=== PATIENT | female | born 1960 | race Caucasian/White ===

== ENCOUNTER 2016-09-02 15:23 | Outpatient (CLI) | payer MEDICAID | END 2016-09-02 15:24 | disposition home or self-care (01) | DX: M17.11 Unilateral primary osteoarthritis, right knee (principal); M25.561 Pain in right knee ==

== ENCOUNTER 2016-10-26 08:00 | Outpatient (CLI) | payer MEDICAID | END 2016-10-26 23:59 | DX: Z01.818 Encounter for other preprocedural examination (principal) ==

== ENCOUNTER 2016-10-26 08:00 | Outpatient (CLI) | payer MEDICAID | END 2016-10-26 23:59 | disposition home or self-care (01) | DX: Z01.818 Encounter for other preprocedural examination (principal) ==

== ENCOUNTER 2016-12-05 06:09 | Inpatient (IN) | payer MEDICAID ==
[2016-12-05] MEDS ORDERED: ceFAZolin 2 GM/50 ML 50 ML IV ONE (06:30)
[2016-12-05] MEDS ORDERED: LACTATED RINGERS 1,000 ML IV ONE ×3 (06:43→11:11)
[2016-12-05 06:58] LABS: HCG UR QUAL NEGATIVE
[2016-12-05] MEDS ORDERED: MORPHINE PF 5 MG/10 ML AMP SUBQ ONE (09:40)
[2016-12-05] MEDS ORDERED: KETOROLAC 15 MG/ML VIAL IVP ONE (09:48)
[2016-12-05] MEDS ORDERED: EPINEPHrine 1 MG/ML AMP SUBQ ONE (09:48)
[2016-12-05] MEDS ORDERED: BUPIVACAINE 0.5% PF 30 ML VIAL SUBQ ONE ×3 (09:49)
[2016-12-05] MEDS ORDERED: ROPIVACAINE 0.2% PF 20 ML AMPULE SUBQ ONE (09:49)
[2016-12-05] MEDS ORDERED: fentaNYL 100 MCG/2 ML VIAL IVP ONE (09:55)
[2016-12-05] MEDS ORDERED: MORPHINE PF 5 MG/10 ML AMP EP ONE (09:55)
[2016-12-05] MEDS ORDERED: KETAMINE 500 MG/10 ML VIAL IVP ONE (09:55)
[2016-12-05] MEDS ORDERED: PROPOFOL 200 MG/20 ML VIAL IVP ONE (09:55)
[2016-12-05] MEDS ORDERED: HYDROmorphone 1 MG/ML SYRINGE IVP ONE (09:55)
[2016-12-05] MEDS ORDERED: MIDAZOLAM 2 MG/2 ML VIAL IVP ONE (09:55)
[2016-12-05] MEDS ORDERED: ROPIVACAINE 0.5% PF 20 ML AMPULE EP ONE (09:55)
[2016-12-05] MEDS ORDERED: ACETAMINOPHEN 1,000 MG/100 ML VIAL IV ONE (09:55)
[2016-12-05] MEDS ORDERED: ONDANSETRON 4 MG/2 ML VIAL IVP ONE (09:55)
[2016-12-05] MEDS ORDERED: SUCCINYLCHOLINE 200 MG/10 ML VIAL IVP ONE (09:55)
[2016-12-05] MEDS ORDERED: DEXAMETHASONE 4 MG/ML VIAL IVP ONE (09:55)
[2016-12-05] MEDS ORDERED: LIDOCAINE-MPF 2% 5 ML VIAL IM ONE (09:55)
[2016-12-05] MEDS ORDERED: KETOROLAC 30 MG/ML VIAL IVP ONE (09:55)
[2016-12-05] MEDS ORDERED: TRANEXAMIC ACID 1,000 MG/10 ML VIAL IV ONE (09:55)
[2016-12-05] MEDS: HYDROmorphone 1 MG/ML SYRINGE ONE ×3 (11:38→11:59)
--- NOTE | 2016-12-05 11:41 | OPERATIVE REPORT ---
Operative Report - General Admit Date: 12/05/16 Procedure Date: 12/05/16 Planned Procedure: Right Total Knee Arthroplasty Pre-Op Diagnosis: Right Knee Primary Osteoarthritis Post Op Diagnosis: Same. - Procedure Note Primary Surgeon: Ramesh Ware MD Anesthesia Provider: MD Isabelle Anesthesia Technique: General ET tube, Local Pathology: Same. Estimated Blood Loss (in cc): 50 Complications: None. - Other Other Information/Narrative: 1. Tourniquet: Right Thigh @ 275 mm Kg x 120 min. without complications. 2. Fluids: 2000 mL LR. 3. Implants: Claudette Persona PS Femoral Component, R Sz 7. Persona Natural Tibia Cemented 5o Right Sz F Vivacit-E Highly Crosslinked Polyethylene PS Tibial Insert, Right 12 mm. Vivacit-E Highly Crosslinked Polyethylene Patella cemented 35 x 9 mm. 4. Disposition: PACU >> MedSur 5. Condition: Stable.
[2016-12-05] MEDS: MEPERIDINE 50 MG/ML SYRINGE ONE ×2 (11:43→11:50)
[2016-12-05] MEDS ORDERED: ACETAMINOPHEN 1,000 MG/100 ML 100 ML IV PRN (11:48)
[2016-12-05] MEDS: fentaNYL 100 MCG/2 ML VIAL ONE ×4 (12:10→12:34)
--- NOTE | 2016-12-05 12:42 | XRAY Report ---
TWO VIEW RIGHT KNEE: 12/05/2016 CLINICAL INDICATION: Postop. FINDINGS: Frontal and lateral views of the right knee demonstrate changes of right knee replacement. There is no evidence of acute fracture. Subcutaneous gas is present. IMPRESSION: POSTOPERATIVE CHANGES OF RIGHT KNEE REPLACEMENT. JOB #: [id number] EXT JOB #:[id number]
[2016-12-05] MEDS: HYDROmorphone PCA 10 MG IV PRN ×2 (13:37→21:52)
[2016-12-05] MEDS: KETOROLAC 30 MG/ML VIAL IVP PRN ×2 (13:46→19:47)
[2016-12-05] MEDS: oxyCOD/ACETAMIN 5 MG/325 MG TABLET PO PRN ×3 (13:58→21:46)
[2016-12-05] MEDS: D5.45NS W/20 MEQ KCL 1,000 ML IV SCH (14:13)
[2016-12-05] MEDS: SODIUM CHLORIDE FLUSH 0.9% 10 ML SYRINGE IVP SCH ×2 (16:31→20:55)
[2016-12-05] MEDS: ceFAZolin 2 GM/50 ML 50 ML IV SCH (16:34)
[2016-12-05] MEDS ORDERED: SENNA 8.6 MG TABLET PO PRN (18:57)
[2016-12-05] MEDS: TOPIRAMATE 100 MG TABLET PO SCH (21:45)
[2016-12-06] MEDS: ACETAMINOPHEN 325 MG TABLET PO PRN
[2016-12-06] MEDS: D5.45NS W/20 MEQ KCL 1,000 ML IV SCH ×2 (00:04→11:24)
[2016-12-06] MEDS: ceFAZolin 2 GM/50 ML 50 ML IV SCH (00:06)
[2016-12-06] MEDS: KETOROLAC 30 MG/ML VIAL IVP PRN ×4 (02:46→21:01)
[2016-12-06] MEDS: SODIUM CHLORIDE FLUSH 0.9% 10 ML SYRINGE IVP SCH ×3 (06:55→21:02)
[2016-12-06] MEDS: ACETAMINOPHEN 1,000 MG/100 ML 100 ML IV SCH ×3 (07:47→20:02)
[2016-12-06] MEDS ORDERED: CALCIUM CARBONATE PO SCH (09:00)
[2016-12-06] MEDS ORDERED: FOLIC ACID PO SCH (09:00)
[2016-12-06] MEDS ORDERED: VITAMIN D3 PO SCH ×2 (09:00)
[2016-12-06] MEDS ORDERED: SENNOSIDES PO SCH (09:00)
[2016-12-06] MEDS ORDERED: DOCUSATE SODIUM PO SCH (09:00)
[2016-12-06] MEDS: HYDROmorphone PCA 10 MG IV PRN (09:48)
[2016-12-06] MEDS: DOCUSATE SODIUM 250 MG CAPSULE PO SCH (10:01)
[2016-12-06] MEDS: TOPIRAMATE 100 MG TABLET PO SCH ×2 (10:02→21:01)
[2016-12-06] MEDS: SENNA 8.6 MG TABLET PO SCH (10:02)
[2016-12-06] MEDS: FOLIC ACID 1 MG TABLET PO SCH (10:02)
[2016-12-06] MEDS: CHOLECALCIFEROL 5,000 UNIT CAPSULE PO SCH (10:03)
[2016-12-06] MEDS: CALCIUM CARBONATE CHEW 500 MG TABLET PO SCH (10:03)
[2016-12-06] MEDS: ENOXAPARIN 40 MG/0.4 ML SYRINGE SUBQ SCH (10:04)
[2016-12-06] MEDS: traMADol 50 MG TABLET PO PRN (12:23)
[2016-12-06] MEDS: GABAPENTIN 100 MG CAPSULE PO SCH ×2 (13:00→21:01)
[2016-12-06] MEDS ORDERED: HYDROmorphone PCA 10 MG IV PRN (14:18)
[2016-12-06 16:21] LABS: BASOPHILS % (AUTO) 0.3 %; EOSINOPHILS # (AUTO) 0.1 10^3/uL (0.0-0.7); EOSINOPHILS % (AUTO) 0.9 %; HCT - HEMATOCRIT 28.2 % (37.0-47.0); HGB - HEMOGLOBIN 9.5 g/dL (12.0-16.0); LYMPHOCYTES # (AUTO) 2.6 10^3/uL (1.5-3.5); LYMPHOCYTES % (AUTO) 31.3 %; MEAN CORPUSCULAR HEMOGLOBIN 31.4 pg (27.0-31.0); MEAN CORPUSCULAR HGB CONC 33.8 g/dL (32.0-36.0); MEAN CORPUSCULAR VOLUME 93.1 fL (81.0-99.0); MONOCYTES # (AUTO) 0.9 10^3/uL (0.0-1.0); MONOCYTES % (AUTO) 10.7 %; NEUTROPHILS # (AUTO) 4.7 10^3/uL (1.5-6.6); NEUTROPHILS % (AUTO) 56.8 %; RED BLOOD COUNT 3.03 10^6/uL (4.20-5.40); RED CELL DISTRIBUTION WIDTH 13.1 % (12.0-15.0); UNCORRECTED WHITE BLOOD COUNT 8.3 x10^3/uL; WHITE BLOOD COUNT 8.3 x10^3/uL (4.8-10.8)
--- NOTE | 2016-12-06 16:25 | CONSULTATION NOTE ---
DATE OF CONSULTATION: 12/06/2016 00:00:00 REQUESTING PROVIDER: Dr. Andres Ware. REASON FOR CONSULTATION: Medical management and pain management status post right knee arthroplasty. HISTORY OF PRESENT ILLNESS: The patient is a 56-year-old female who was admitted to the [facility] service for a total right knee arthroplasty replacement with Dr. Andres Ware. The patient was evaluated at bedside. She had significant pain to the right knee, was on a ALUMINUM MOLDING MACHINE OPERATOR pump and was not bein g relieved for her pain at the time of assessment. The patient has a longstanding history with osteoa rthritis of multiple joints, hypothyroidism with goiter, back problems with bulging disks and neuropa thy to both upper and lower extremities. She normally takes oxycodone 3 times a day, 10 mg. She also takes topiramate for nerve pain. She has not taken any steroids at this time. The patient states that her pain at this time is a 10/10. She was given tramadol earlier, which did not relieve her pain. Eliana tovar also has tried gabapentin in the past and has not helped as well. The patient was placed back on he r normal dosage of oxycodone 10 mg 3 times a day. Along with her pain the patient is being managed fo r other symptoms including neurology with topiramate. She does not have medication for her thyroid. H owever, we will check a thyroid panel. The patient understands that she will be up and ambulatory wit h physical and occupational therapy within the next 24 hours and was requesting additional pain medic ation to help with ambulation. ALLERGIES: NO KNOWN DRUG ALLERGIES. PAST MEDICAL HISTORY: 1. Chronic neck and spine pain. 2. Hypothyroidism. 3. Osteoarthritis of multiple sites. 4. Peripheral neuropathy. 5. History of thyroid goiters. 6. History of cervical sprain. 7. Vitamin D deficiency. PAST SURGICAL HISTORY: Multiple surgeries for spine and back. Right knee surgery. PAST FAMILY HISTORY: The patient states that her father had spinal stenosis, Parkinson's, diabetes, t rigeminal neuralgia. Mother is relatively healthy, still alive. HOME MEDICATIONS: 1. Calcium carbonate. 2. Vitamin D. 3. Glucosamine. 4. Oxycodone 10 mg t.i.d. 5. Senna and Colace. 6. Topamax. PAST SOCIAL HISTORY: The patient does take multiple pain relieving narcotics. She does drink alcohol on occasion and does not use illicit street drugs. REVIEW OF SYSTEMS: Ten systems have been reviewed and negative, with exception as discussed in the HP I prior. She is negative for nausea, vomiting, constipation, diarrhea, headaches, chest pain or short ness of breath. She is positive for multiple sites of pain, specifically in the knee. She denies mary jane turia, dysuria. She admits to a neuropathy to both her feet and her hands. PHYSICAL EXAMINATION: CONSTITUTIONAL: The patient is alert, in no acute distress. EYES: Pupils are equal, round and react to light and accommodation. Conjunctivae and sclerae are allison cteric, not injected. ENT: Nares are patent. No nasal discharge. OROPHARYNX: No masses, exudates or lesions. Mucous membranes are moist. NECK: Supple. No thyromegaly. CHEST: Breath sounds are clear and equal bilaterally to auscultation and percussion, no retractions, nasal flaring, or increased work of breathing. CARDIOVASCULAR: S1, S2 noted. No gallops, murmurs or rubs. Normal PMI. No JVD. GASTROINTESTINAL: Abdomen is obese, soft, nontender. Bowel sounds are hypoactive. No guarding or rebo und. GENITOURINARY: No CVA tenderness. No mass palpated. No bladder distention. PSYCHIATRIC: Behavior is appropriate, anxious after surgery, oriented x3 with no suicidal ideation. HEMATOLOGIC: No active bleeding. The patient is hemodynamically stable. SKIN: Warm, dry, intact. Normal turgor. No evidence of rash, lesions, cellulitis, noted. Right Jovanni ba ndage around knee status post arthroscopic right knee. MUSCULOSKELETAL: EXTREMITIES: Full range of motion with upper extremities limited to right lower, sta tus post surgery, left with no difficulty. No edema noted and pulses are palpable on lower extremitie s. LYMPHATIC: No cervical, axillary, supraclavicular lymphadenopathy is noted. VITAL SIGNS: Temperature is 36.8, heart rate 57, blood pressure 110/60, respirations 18, pulse oximet ry 98% on room air. LABORATORY AND DIAGNOSTICS: I personally reviewed laboratory and diagnostic data in the medical recor ds. Urinalysis posted that is negative for , specific gravity is 1.02. No CBC and no CMP not ed at this time. ASSESSMENT: 1. Acute right knee pain with osteoarthritis of multiple sites secondary to status post total right k nee arthroplasty. 2. Obesity with body mass index greater than 30. 3. Chronic back pain with spinal stenosis. 4. Hypothyroid with goiter. 5. Peripheral neuropathy. 6. Chronic opiate usage. PLAN AND RECOMMENDATIONS: 1. Continue with ALUMINUM MOLDING MACHINE OPERATOR Dilaudid pump; however, will give back oxycodone home medication, the patient wi ll be difficult to manage pain hay since she does have tolerance for multiple pain medications. She has significant neuropathy. Recommend continuing topiramate. She also will need physical and occupati onal therapy assessment evaluation. Recommend also to provide NSAID, if not Toradol IV is a good laurent ce. 2. Continue to monitor mental status on both Dilaudid and oxycodone. 3. Also add oxygen specifically at night when she is sleeping. Will need to monitor continuous pulse oximetry at night. 4. Continue with daily labs and continue to monitor electrolytes and magnesium level. Time spent on patient education, planning and assessment was 45 minutes. Thank you for your kind referral. We will continue to follow with you. JOB #: [id number] EXT JOB #:[id number]
[2016-12-06] MEDS: oxyCODONE 5 MG TABLET PO PRN (16:43)
[2016-12-07] MEDS: diphenhydrAMINE INJ 50 MG/ML VIAL IVP PRN (00:22)
[2016-12-07] MEDS: D5.45NS W/20 MEQ KCL 1,000 ML IV SCH ×3 (00:34→14:40)
[2016-12-07] MEDS: ACETAMINOPHEN 1,000 MG/100 ML 100 ML IV SCH ×4 (00:47→19:32)
[2016-12-07] MEDS: HYDROmorphone PCA 10 MG IV PRN ×3 (00:49→18:31)
[2016-12-07] MEDS: ONDANSETRON 4 MG/2 ML VIAL IVP PRN (01:04)
[2016-12-07] MEDS: KETOROLAC 30 MG/ML VIAL IVP PRN ×3 (03:20→17:38)
[2016-12-07] MEDS: SODIUM CHLORIDE FLUSH 0.9% 10 ML SYRINGE IVP SCH ×3 (04:52→22:00)
[2016-12-07] MEDS: GABAPENTIN 100 MG CAPSULE PO SCH ×3 (05:37→21:59)
[2016-12-07 06:07] LABS: ALBUMIN/GLOBULIN RATIO 1.3 (1.0-2.2); BILIRUBIN,TOTAL 0.3 mg/dL (0.2-1.0); CALCIUM 8.3 mg/dL (8.5-10.3); CREATININE 0.7 mg/dL (0.4-1.0); POTASSIUM 3.8 mmol/L (3.5-5.0); TOTAL PROTEIN 4.8 g/dL (6.7-8.2)
[2016-12-07] MEDS: traMADol 50 MG TABLET PO PRN ×3 (08:03→17:38)
[2016-12-07] MEDS: oxyCODONE 5 MG TABLET PO PRN ×3 (08:03→22:03)
[2016-12-07] MEDS: ENOXAPARIN 40 MG/0.4 ML SYRINGE SUBQ SCH (09:45)
[2016-12-07] MEDS: CHOLECALCIFEROL 5,000 UNIT CAPSULE PO SCH (09:46)
[2016-12-07] MEDS: FOLIC ACID 1 MG TABLET PO SCH (09:46)
[2016-12-07] MEDS: TOPIRAMATE 100 MG TABLET PO SCH ×2 (09:46→21:59)
[2016-12-07] MEDS: CALCIUM CARBONATE CHEW 500 MG TABLET PO SCH (09:46)
[2016-12-07] MEDS: DOCUSATE SODIUM 250 MG CAPSULE PO SCH (09:47)
[2016-12-07] MEDS: SENNA 8.6 MG TABLET PO SCH (12:34)
--- NOTE | 2016-12-07 16:41 | PROVIDER PROGRESS NOTE ---
Assessment/Plan - Problem List (1) Status post total right knee replacement Assessment/Plan: Osteoarthritis with chronic pain leading to knee replacement surgery. PT is having increased pain with mobility. She had her knee in a brace for several months complicating her mobility issues. Plan: Continue to work with Physical therapy. Will add PRN fentanyl to see if we can work towards removing her from COMPUTER METEOROLOGIST. Her intermediate accountant use of opiods will make pain control more difficult (2) Obesity (BMI 30.0-34.9) Assessment/Plan: Encourage diet, exercise and wt loss. (3) Chronic pain Assessment/Plan: intermediate opiod use will make pain control difficult. She has been placed back on her home regimen in addition to her COMPUTER METEOROLOGIST. She is continuously pushing her COMPUTER METEOROLOGIST button. Will try to slubber frame changer to Fentanyl IV and see if we can control her pain this way and prevent over use with concern for hyperactive pain response (4) Peripheral neuropathy Assessment/Plan: Continue home medications (5) Postoperative anemia Assessment/Plan: 9.5/28.2 today. Pt is asymptomatic. will recheck in AM - Current Meds Current Meds: Current Medications Generic Name Dose Route Start Last Admin Trade Name Freq PRN Reason Stop Dose Admin Acetaminophen 650 - 975 mg 12/05/16 11:48 12/06/16 00:00 Tylenol PO 975 mg Q4HR PRN Administration PAIN Calcium Carbonate/Glycine 1,500 mg 12/06/16 09:00 12/07/16 09:46 Tums PO 1,500 mg DAILY DIOR Administration Cholecalciferol 5,000 unit 12/06/16 09:00 12/07/16 09:46 Vitamin D3 PO 5,000 unit DAILY DIOR Administration Diphenhydramine HCl 25 mg 12/06/16 16:01 12/07/16 00:22 Benadryl Inj IVP 25 mg Q6H PRN Administration Allergy Symptoms Docusate Sodium 250 - 500 mg 12/06/16 09:00 12/07/16 09:47 Colace 250mg Capsule PO 250 mg DAILY DIOR Administration Enoxaparin Sodium 40 mg 12/06/16 09:00 12/07/16 09:45 Lovenox SUBQ 40 mg DAILY DIOR Administration Folic Acid 1 mg 12/06/16 09:00 12/07/16 09:46 PO 1 mg DAILY DIOR Administration Gabapentin 100 mg 12/06/16 12:30 12/07/16 13:18 Neurontin PO 100 mg TID DIOR Administration Hydromorphone HCl 10 mg 12/07/16 00:14 12/07/16 07:43 Dilaudid Property Preservation Specialist (Use Property Preservation Specialist Order Set) IV 10 mg PRN PRN Administration PAIN Protocol Acetaminophen 100 mls @ 400 mls/hr 12/06/16 07:00 12/07/16 13:19 Ofirmev IV 400 mls/hr Q6H DIOR Administration Potassium Chloride/Dextrose/Sod Cl 1,000 mls @ 30 mls/hr 12/07/16 14:38 14:40 D5.45ns W/20 Meq Kcl IV 30 mls/hr .[id number] DIOR Administration Ketorolac Tromethamine 30 mg 12/05/16 11:53 12/07/16 09:45 Toradol Inj IVP 12/10/16 11:52 30 mg Q6HR PRN Administration PAIN Ondansetron HCl 4 mg 12/05/16 11:48 12/07/16 01:04 Zofran Inj IVP 4 mg Q6HR PRN Administration Nausea / Vomiting Oxycodone HCl 10 mg 12/06/16 15:36 12/07/16 13:17 Roxicodone PO 10 mg TID PRN Administration PAIN Senna 8.6 - 17.2 mg 12/06/16 09:00 12/07/16 12:34 Senokot PO Not Given DAILY DIOR Sodium Chloride 10 ml 12/05/16 14:00 12/07/16 14:36 Normal Saline Flush 0.9% IVP Not Given Q8HR DIOR Topiramate 100 mg 12/05/16 21:00 12/07/16 09:46 Topamax PO 100 mg BID DIOR Administration Tramadol HCl 50 mg 12/06/16 12:02 12/07/16 11:33 Ultram PO 50 mg Q4HR PRN Administration PAIN - Lab Result Lab results reviewed: Yes Fish Bone Diagrams: 12/06/16 16:10 12/07/16 05:19 - Diagnostic Imaging Results Diagnostic Imaging Results: positive: Prelim report reviewed - Additional Planning Condition/Complexity: Stable My Orders: My Active Orders 12/07/16 16:36 fentaNYL 25 mcg IVP Q2HR PRN Plan Discussed with:: Patient, Family Time Spent: 15-30 minutes Subjective - Subjective Patient Reports: Pain (Continues to have trouble controlling her pain. She inderstands her prior chronic use of opiods is making it more difficult.) Nursing Reports: Pain Objective Vital Signs: Vital Signs - 24 hr 12/06/16 12/06/16 12/06/16 18:00 19:30 22:00 Temperature 36.5 C Heart Rate [ 64 Brachial] Respiratory 16 18 16 Rate Blood Pressure 135/61 H [Right Brachial artery] O2 Saturation 99 12/06/16 12/07/16 12/07/16 23:45 00:53 04:22 Temperature 36.8 C 36.9 C Heart Rate [ 60 76 Brachial] Respiratory 18 18 16 Rate Blood Pressure 88/44 L 93/51 L [Right Brachial artery] O2 Saturation 96 96 12/07/16 12/07/16 12/07/16 06:00 08:51 10:00 Temperature 36.9 C Heart Rate [ 97 Brachial] Respiratory 17 18 18 Rate Blood Pressure 97/48 L [Right Brachial artery] O2 Saturation 100 12/07/16 14:00 Temperature 37.1 C Heart Rate [ 82 Brachial] Respiratory 19 Rate Blood Pressure 96/60 [Right Brachial artery] O2 Saturation 100 Oxygen O2 Source Room air I&O (Last 24 Hrs): Intake and Output Totals x24h 12/05/16 12/06/16 12/07/16 23:59 23:59 23:59 Intake Total 4437 4963 2246 Output Total 2700 2050 1800 Balance 1737 2913 446 General: Alert, Oriented x3 HEENT: Atraumatic, PERRLA, EOMI Neck: Supple, No JVD Neuro: Alert, CN 2-12 Grossly Intact Cardiovascular: Regular rate, Normal S1, Normal S2, No murmurs Respiratory: Chest non-tender, No respiratory distress Abdomen: Normal bowel sounds Extremities: No edema Skin: No rashes, No breakdown - Results Results: Laboratory Results WBC 8.3 x10^3/uL (4.8-10.8) 12/06/16 16:10 RBC 3.03 10^6/uL (4.20-5.40) L 12/06/16 16:10 Hgb 9.5 g/dL (12.0-16.0) L 12/06/16 16:10 Hct 28.2 % (37.0-47.0) L 12/06/16 16:10 MCV 93.1 fL (81.0-99.0) 12/06/16 16:10 MCH 31.4 pg (27.0-31.0) H 12/06/16 16:10 MCHC 33.8 g/dL (32.0-36.0) 12/06/16 16:10 RDW 13.1 % (12.0-15.0) 12/06/16 16:10 Plt Count 172 10^3/uL (130-450) 12/06/16 16:10 MPV 7.0 fL (7.9-10.8) L 12/06/16 16:10 Neut # 4.7 10^3/uL (1.5-6.6) 12/06/16 16:10 Lymph # 2.6 10^3/uL (1.5-3.5) 12/06/16 16:10 [place] # 0.9 10^3/uL (0.0-1.0) 12/06/16 16:10 Eos # 0.1 10^3/uL (0.0-0.7) 12/06/16 16:10 Baso # 0.0 10^3/uL (0.0-0.1) 12/06/16 16:10 Absolute Nucleated RBC 0.00 x10^3/uL 12/06/16 16:10 Nucleated RBCs 0.0 /100WBC 12/06/16 16:10 Sodium 139 mmol/L (135-145) 12/07/16 05:19 Potassium 3.8 mmol/L (3.5-5.0) 12/07/16 05:19 Chloride 110 mmol/L (101-111) 12/07/16 05:19 Carbon Dioxide 24 mmol/L (21-32) 12/07/16 05:19 Anion Gap 5.0 (6-13) L 12/07/16 05:19 BUN 18 mg/dL (6-20) 12/07/16 05:19 Creatinine 0.7 mg/dL (0.4-1.0) 12/07/16 05:19 Estimated GFR (MDRD) 87 (>89) L 12/07/16 05:19 Glucose 109 mg/dL (70-100) H 12/07/16 05:19 Calcium 8.3 mg/dL (8.5-10.3) L 12/07/16 05:19 Phosphorus 3.2 mg/dL (2.5-4.6) 12/06/16 16:10 Magnesium 1.8 mg/dL (1.7-2.8) 12/06/16 16:10 Total Bilirubin 0.3 mg/dL (0.2-1.0) 12/07/16 05:19 AST 12 IU/L (10-42) 12/07/16 05:19 ALT 12 IU/L (10-60) 12/07/16 05:19 Alkaline Phosphatase 48 IU/L (42-121) 12/07/16 05:19 Total Protein 4.8 g/dL (6.7-8.2) L 12/07/16 05:19 Albumin 2.7 g/dL (3.2-5.5) L 12/07/16 05:19 Globulin 2.0 g/dL (2.1-4.2) L 12/07/16 05:19 Albumin/Globulin Ratio 1.3 (1.0-2.2) 12/07/16 05:19 Vitamin B12 284 pg/mL (180-914) 12/06/16 16:10 Ur Specific [place] 1.025 (1.002-1.030) 12/05/16 06:30 Urine HCG, Qual NEGATIVE 12/05/16 06:30
[2016-12-07] MEDS: SODIUM CHLORIDE FLUSH 0.9% 10 ML SYRINGE IVP PRN (17:38)
[2016-12-08] MEDS: fentaNYL 100 MCG/2 ML VIAL IVP PRN ×6 (00:29→21:53)
[2016-12-08] MEDS: ACETAMINOPHEN 1,000 MG/100 ML 100 ML IV SCH ×4 (00:35→18:40)
[2016-12-08] MEDS ORDERED: ACETAMINOPHEN 325 MG TABLET PO STA (05:32)
[2016-12-08 05:44] LABS: HCT - HEMATOCRIT 25.2 % (37.0-47.0); HGB - HEMOGLOBIN 8.5 g/dL (12.0-16.0); MEAN CORPUSCULAR HGB CONC 33.9 g/dL (32.0-36.0); MEAN CORPUSCULAR VOLUME 94.6 fL (81.0-99.0); MEAN PLATELET VOLUME 7.1 fL (7.9-10.8); RED BLOOD COUNT 2.66 10^6/uL (4.20-5.40); RED CELL DISTRIBUTION WIDTH 13.3 % (12.0-15.0); WHITE BLOOD COUNT 10.8 x10^3/uL (4.8-10.8)
[2016-12-08] MEDS: SODIUM CHLORIDE FLUSH 0.9% 10 ML SYRINGE IVP SCH ×3 (06:07→21:53)
[2016-12-08] MEDS: GABAPENTIN 100 MG CAPSULE PO SCH ×3 (06:07→21:51)
[2016-12-08] MEDS: HYDROmorphone PCA 10 MG IV PRN (06:13)
[2016-12-08 06:33] LABS: BILIRUBIN,URINE NEGATIVE (NEGATIVE)
[2016-12-08 06:40] LABS: UR CULTURE IF IND NOT INDICATED; WBC,URINE 0-3 /HPF (0-5)
[2016-12-08] MEDS: KETOROLAC 30 MG/ML VIAL IVP PRN ×3 (07:09→21:52)
[2016-12-08] MEDS: TOPIRAMATE 100 MG TABLET PO SCH ×2 (08:50→21:51)
[2016-12-08] MEDS: CHOLECALCIFEROL 5,000 UNIT CAPSULE PO SCH (08:50)
[2016-12-08] MEDS: SENNA 8.6 MG TABLET PO SCH (08:50)
[2016-12-08] MEDS: oxyCODONE 5 MG TABLET PO PRN ×2 (08:51→18:05)
[2016-12-08] MEDS: DOCUSATE SODIUM 250 MG CAPSULE PO SCH (08:51)
[2016-12-08] MEDS: CALCIUM CARBONATE CHEW 500 MG TABLET PO SCH (08:52)
[2016-12-08] MEDS: ENOXAPARIN 40 MG/0.4 ML SYRINGE SUBQ SCH (08:54)
[2016-12-08] MEDS: FOLIC ACID 1 MG TABLET PO SCH (09:07)
[2016-12-08] MEDS: cefTRIAXone 2 GM in SODIUM CHLORIDE 0.9% MINIBAG 100 ML IV SCH (11:47)
--- NOTE | 2016-12-08 12:05 | XRAY Report ---
TWO VIEW CHEST: 12/08/2016 CLINICAL INDICATION: Fever. FINDINGS: Frontal and lateral views of the chest demonstrate a normal cardiac silhouette. A moderate hiatal hernia is present. The lungs are clear. No effusion or pneumothorax is present. IMPRESSION: MODERATE HIATAL HERNIA. NO EVIDENCE OF ACUTE CARDIOPULMONARY DISEASE. JOB #: [id number] EXT JOB #:[id number]
[2016-12-08] MEDS: traMADol 50 MG TABLET PO PRN ×2 (13:31→18:05)
[2016-12-08] MEDS: D5.45NS W/20 MEQ KCL 1,000 ML IV SCH (13:34)
--- NOTE | 2016-12-08 14:37 | PROVIDER PROGRESS NOTE ---
Assessment/Plan - Problem List (1) Status post total right knee replacement Assessment/Plan: Increased pain of right knee and leg. Febrile with chills and rigors last night. Blood cultures obtained. Chest xray was unremarkable with no acute cardiopulmonary findings. PT has been afebrile throughout the day. Plan: Started on Rocephin today. US ordered by surgery. Will monitor and discuss with Dr Ware from surgery if anything changes. He did not feel needles aspiration was indicated at this time. (2) Obesity (BMI 30.0-34.9) Assessment/Plan: PT will benefit from wt loss. This will help her chronic pain, osteoarthritis as well as risk factor reduction for CAD, CVA and DM (3) Chronic pain Assessment/Plan: Continued complaints of pain. Difficult to assess pain response tonew changes. MACHINE RIGGER Dilaudid discontinued today. Will continue to monitor on current medications. Physical therapy to work with her tomorrow as we are currently assessing RLE for DVT and effusion (5) Postoperative anemia Assessment/Plan: H/H have declined further today. She does not require transfusion at this time. Will Continue to monitor labs and transfuse if significant drop from baseline or if she is symptomatic . - Current Meds Current Meds: Current Medications Generic Name Dose Route Start Last Admin Trade Name Freq PRN Reason Stop Dose Admin Acetaminophen 650 - 975 mg 12/05/16 11:48 12/06/16 00:00 Tylenol PO 975 mg Q4HR PRN Administration PAIN Calcium Carbonate/Glycine 1,500 mg 12/06/16 09:00 12/08/16 08:52 Tums PO 1,500 mg DAILY DIOR Administration Cholecalciferol 5,000 unit 12/06/16 09:00 12/08/16 08:50 Vitamin D3 PO 5,000 unit DAILY DIOR Administration Diphenhydramine HCl 25 mg 12/06/16 16:01 12/07/16 00:22 Benadryl Inj IVP 25 mg Q6H PRN Administration Allergy Symptoms Docusate Sodium 250 - 500 mg 12/06/16 09:00 12/08/16 08:51 Colace 250mg Capsule PO 250 mg DAILY DIOR Administration Enoxaparin Sodium 40 mg 12/06/16 09:00 12/08/16 08:54 Lovenox SUBQ 40 mg DAILY DIOR Administration Fentanyl 25 mcg 12/07/16 16:36 12/08/16 13:43 Fentanyl IVP 25 mcg Q2HR PRN Administration PAIN Folic Acid 1 mg 12/06/16 09:00 12/08/16 09:07 PO 1 mg DAILY DIOR Administration Gabapentin 100 mg 12/06/16 12:30 12/08/16 13:31 Neurontin PO 100 mg TID DIOR Administration Acetaminophen 100 mls @ 400 mls/hr 12/06/16 07:00 12/08/16 13:31 Ofirmev IV 400 mls/hr Q6H DIOR Administration Potassium Chloride/Dextrose/Sod Cl 1,000 mls @ 30 mls/hr 12/07/16 14:38 13:34 D5.45ns W/20 Meq Kcl IV 30 mls/hr .[id number] DIOR Administration Ceftriaxone Sodium 2 gm/ 100 mls @ 200 mls/hr 12/08/16 12:00 12/08/16 11:47 Sodium Chloride IV 200 mls/hr DAILY DIOR Administration Ketorolac Tromethamine 30 mg 12/05/16 11:53 12/08/16 13:26 Toradol Inj IVP 12/10/16 11:52 30 mg Q6HR PRN Administration PAIN Ondansetron HCl 4 mg 12/05/16 11:48 12/07/16 01:04 Zofran Inj IVP 4 mg Q6HR PRN Administration Nausea / Vomiting Oxycodone HCl 10 mg 12/06/16 15:36 12/08/16 08:51 Roxicodone PO 10 mg TID PRN Administration PAIN Senna 8.6 - 17.2 mg 12/06/16 09:00 12/08/16 08:50 Senokot PO 8.6 mg DAILY DIOR Administration Sodium Chloride 10 ml 12/05/16 11:48 12/07/16 17:38 Normal Saline Flush 0.9% IVP 10 ml PRN PRN Administration NEEDED PER PROVIDER ORDERS Sodium Chloride 10 ml 12/05/16 14:00 12/08/16 13:32 Normal Saline Flush 0.9% IVP 10 ml Q8HR DIOR Administration Topiramate 100 mg 12/05/16 21:00 12/08/16 08:50 Topamax PO 100 mg BID DIOR Administration Tramadol HCl 50 mg 12/06/16 12:02 12/08/16 13:31 Ultram PO 50 mg Q4HR PRN Administration PAIN - Lab Result Lab results reviewed: Yes Fish Bone Diagrams: 12/08/16 05:09 12/07/16 05:19 - Diagnostic Imaging Results Diagnostic Imaging Results: positive: Final report reviewed - Additional Planning Condition/Complexity: Stable My Orders: My Active Orders 12/07/16 16:36 fentaNYL 25 mcg IVP Q2HR PRN 12/08/16 12:00 cefTRIAXone [Rocephin] 2 gm Sodium Chloride 0.9% Minibag [Normal Saline 0.9% Minibag] 100 ml IV DAILY 12/09/16 05:00 BMP - BASIC METABOLIC PANEL [CHEM] DAILYLAB CBC W/O DIFF (HEMOGRAM) [HEME] DAILYLAB Consult/Specialty: Surgery Plan Discussed with:: Patient Time Spent: 15-30 minutes Subjective - Subjective Patient Reports: Fever (Febrile over night with chills and rigors. Improved with APAP), Pain (PT complain of increase pain in leg especially the knee.) Nursing Reports: Pain Objective Vital Signs: Vital Signs - 24 hr 12/07/16 12/07/16 12/07/16 18:00 21:54 22:00 Temperature 37.3 C 37.1 C Heart Rate [ 80 72 Brachial] Respiratory 16 18 17 Rate Blood Pressure 118/62 108/49 L [Right Brachial artery] O2 Saturation 95 97 12/08/16 12/08/16 12/08/16 00:20 01:00 04:23 Temperature 37.3 C Heart Rate [ 90 Brachial] Respiratory 16 16 16 Rate Blood Pressure 121/65 [Right Brachial artery] O2 Saturation 99 12/08/16 12/08/16 12/08/16 05:10 05:23 08:18 Temperature 38.2 C H 37.8 C H 36.8 C Heart Rate [ 102 H 90 Brachial] Respiratory 20 18 Rate Blood Pressure 126/42 L 92/46 L [Right Brachial artery] O2 Saturation 100 96 12/08/16 12/08/16 10:00 12:42 Temperature 36.9 C Heart Rate [ 87 Brachial] Respiratory 16 16 Rate Blood Pressure 107/60 [Right Brachial artery] O2 Saturation 97 Oxygen O2 Source Room air I&O (Last 24 Hrs): Intake and Output Totals x24h 12/06/16 12/07/16 12/08/16 23:59 23:59 23:59 Intake Total 4963 3099 1051 Output Total 0973 7900 8628 Balance 2913 945 -1320 General: Alert, Oriented x3 HEENT: PERRLA, EOMI Neck: No JVD Neuro: Alert, CN 2-12 Grossly Intact Cardiovascular: Regular rate, No murmurs Respiratory: Chest non-tender, No respiratory distress, Breath sounds nml Abdomen: Normal bowel sounds Extremities: Normal pulses, Other (swelling and pain to palpation of RLE. Incision C/D/I. No errythema of RLE.) Skin: No rashes, No breakdown, No significant lesion - Results Results: Laboratory Results WBC 10.8 x10^3/uL (4.8-10.8) 12/08/16 05:09 RBC 2.66 10^6/uL (4.20-5.40) L 12/08/16 05:09 Hgb 8.5 g/dL (12.0-16.0) L 12/08/16 05:09 Hct 25.2 % (37.0-47.0) L 12/08/16 05:09 MCV 94.6 fL (81.0-99.0) 12/08/16 05:09 MCH 32.0 pg (27.0-31.0) H 12/08/16 05:09 MCHC 33.9 g/dL (32.0-36.0) 12/08/16 05:09 RDW 13.3 % (12.0-15.0) 12/08/16 05:09 Plt Count 172 10^3/uL (130-450) 12/08/16 05:09 MPV 7.1 fL (7.9-10.8) L 12/08/16 05:09 Neut # 4.7 10^3/uL (1.5-6.6) 12/06/16 16:10 Lymph # 2.6 10^3/uL (1.5-3.5) 12/06/16 16:10 [place] # 0.9 10^3/uL (0.0-1.0) 12/06/16 16:10 Eos # 0.1 10^3/uL (0.0-0.7) 12/06/16 16:10 Baso # 0.0 10^3/uL (0.0-0.1) 12/06/16 16:10 Absolute Nucleated RBC 0.00 x10^3/uL 12/06/16 16:10 Nucleated RBCs 0.0 /100WBC 12/06/16 16:10 Sodium 139 mmol/L (135-145) 12/07/16 05:19 Potassium 3.8 mmol/L (3.5-5.0) 12/07/16 05:19 Chloride 110 mmol/L (101-111) 12/07/16 05:19 Carbon Dioxide 24 mmol/L (21-32) 12/07/16 05:19 Anion Gap 5.0 (6-13) L 12/07/16 05:19 BUN 18 mg/dL (6-20) 12/07/16 05:19 Creatinine 0.7 mg/dL (0.4-1.0) 12/07/16 05:19 Estimated GFR (MDRD) 87 (>89) L 12/07/16 05:19 Glucose 109 mg/dL (70-100) H 12/07/16 05:19 Calcium 8.3 mg/dL (8.5-10.3) L 12/07/16 05:19 Phosphorus 3.2 mg/dL (2.5-4.6) 12/06/16 16:10 Magnesium 1.8 mg/dL (1.7-2.8) 12/06/16 16:10 Total Bilirubin 0.3 mg/dL (0.2-1.0) 12/07/16 05:19 AST 12 IU/L (10-42) 12/07/16 05:19 ALT 12 IU/L (10-60) 12/07/16 05:19 Alkaline Phosphatase 48 IU/L (42-121) 12/07/16 05:19 Total Protein 4.8 g/dL (6.7-8.2) L 12/07/16 05:19 Albumin 2.7 g/dL (3.2-5.5) L 12/07/16 05:19 Globulin 2.0 g/dL (2.1-4.2) L 12/07/16 05:19 Albumin/Globulin Ratio 1.3 (1.0-2.2) 12/07/16 05:19 Vitamin B12 284 pg/mL (180-914) 12/06/16 16:10 Urine Color YELLOW 12/08/16 05:50 Urine Clarity CLEAR (CLEAR) 12/08/16 05:50 Urine pH 7.0 PH (5.0-7.5) 12/08/16 05:50 Ur Specific [place] 1.010 (1.002-1.030) 12/08/16 05:50 Urine Protein NEGATIVE mg/dL (NEGATIVE) 12/08/16 05:50 Urine Glucose (UA) NEGATIVE mg/dL (NEGATIVE) 12/08/16 05:50 Urine Ketones NEGATIVE mg/dL (NEGATIVE) 12/08/16 05:50 Urine Occult Blood NEGATIVE (NEGATIVE) 12/08/16 05:50 Urine Nitrite NEGATIVE (NEGATIVE) 12/08/16 05:50 Urine Bilirubin NEGATIVE (NEGATIVE) 12/08/16 05:50 Urine Urobilinogen 0.2 (NORMAL) E.U./dL (NORMAL) 12/08/16 05:50 Ur Leukocyte Esterase NEGATIVE (NEGATIVE) 12/08/16 05:50 Urine RBC 0-5 /HPF (0-5) 12/08/16 05:50 Urine WBC 0-3 /HPF (0-5) 12/08/16 05:50 Ur Squamous Epith Cells MOD Squamous (<= Few) H 12/08/16 05:50 Urine Bacteria Few /HPF (None Seen) 12/08/16 05:50 Urine Culture Comments NOT INDICATED 12/08/16 05:50 Urine HCG, Qual NEGATIVE 12/05/16 06:30
--- NOTE | 2016-12-08 14:58 | Ultrasound Report ---
RIGHT LEG VENOUS DUPLEX: 12/08/2016 CLINICAL INDICATION: Calf pain after knee replacement. TECHNIQUE: Real-time sonographic vascular imaging was performed by the correspondence section supervisor through the right lower extremity utilizing both color flow and Doppler spectral analysis. Multiple customer service representative teacher sta tic images were saved for review. FINDINGS: A right lower extremity venous sonogram is performed revealing the common femoral, superfic ial femoral, profunda femoris, and popliteal veins to be adequately visualized without intraluminal d efects. There is normal venous compression, augmentation, phasicity, and spontaneity of venous flow. In the calf, the visualized more cephalad portions of posterior tibial and peroneal veins are grossl y compressible, without filling defects. IMPRESSION: NO EVIDENCE OF DEEP VENOUS THROMBOSIS. JOB #: [id number] EXT JOB #:[id number]
[2016-12-08] MEDS: SODIUM CHLORIDE FLUSH 0.9% 10 ML SYRINGE IVP PRN ×2 (18:05→21:53)
[2016-12-09] MEDS: ACETAMINOPHEN 1,000 MG/100 ML 100 ML IV SCH ×2 (00:51→07:51)
[2016-12-09] MEDS: oxyCODONE 5 MG TABLET PO PRN ×3 (00:51→12:50)
[2016-12-09] MEDS: KETOROLAC 30 MG/ML VIAL IVP PRN ×4 (00:51→19:07)
[2016-12-09 06:08] LABS: HCT - HEMATOCRIT 21.6 % (37.0-47.0); HGB - HEMOGLOBIN 7.1 g/dL (12.0-16.0); MEAN CORPUSCULAR HEMOGLOBIN 31.2 pg (27.0-31.0); MEAN CORPUSCULAR VOLUME 94.8 fL (81.0-99.0); MEAN PLATELET VOLUME 7.3 fL (7.9-10.8); RED BLOOD COUNT 2.28 10^6/uL (4.20-5.40); RED CELL DISTRIBUTION WIDTH 13.3 % (12.0-15.0); WHITE BLOOD COUNT 7.6 x10^3/uL (4.8-10.8)
[2016-12-09] MEDS: SODIUM CHLORIDE FLUSH 0.9% 10 ML SYRINGE IVP SCH ×3 (06:11→20:51)
[2016-12-09 06:16] LABS: CALCIUM 8.4 mg/dL (8.5-10.3); CREATININE 0.7 mg/dL (0.4-1.0); POTASSIUM 4.3 mmol/L (3.5-5.0)
[2016-12-09] MEDS: PROCHLORPERAZINE 10 MG/2 ML VIAL IVP PRN ×2 (07:50→19:07)
[2016-12-09] MEDS: GABAPENTIN 100 MG CAPSULE PO SCH ×3 (07:51→20:53)
[2016-12-09] MEDS ORDERED: FUROSEMIDE 20 MG/2 ML VIAL IVP PRN (08:59)
--- NOTE | 2016-12-09 09:08 | PROVIDER PROGRESS NOTE ---
Assessment/Plan - Problem List (1) Status post total right knee replacement Assessment/Plan: Pain in right knee improved today. Continues to complain of chills but is afebrile. Blood cultures negative to date. Vascular US negative for DVT. H/H has declined further. Plan: Continue current medications. Transfuse PRBC today. Work with physical therapy. Anticipate discharge 1-2 days. (2) Obesity (BMI 30.0-34.9) Assessment/Plan: PT will benefit from wt loss. This will help her chronic pain, osteoarthritis as well as risk factor reduction for CAD, CVA and DM (3) Chronic pain Assessment/Plan: No changes in chronic pain complaints. Knee feels better today. Will monitor and adjust medications to find lowest dosing to control her pain and allow mobilization. (4) Postoperative anemia Assessment/Plan: 7.1.6 today. Transfuse 2 units PRBC today. PARQ with patient completed - Current Meds Current Meds: Current Medications Generic Name Dose Route Start Last Admin Trade Name Freq PRN Reason Stop Dose Admin Acetaminophen 650 - 975 mg 12/05/16 11:48 12/06/16 00:00 Tylenol PO 975 mg Q4HR PRN Administration PAIN Calcium Carbonate/Glycine 1,500 mg 12/06/16 09:00 12/08/16 08:52 Tums PO 1,500 mg DAILY DIOR Administration Cholecalciferol 5,000 unit 12/06/16 09:00 12/08/16 08:50 Vitamin D3 PO 5,000 unit DAILY DIOR Administration Diphenhydramine HCl 25 mg 12/06/16 16:01 12/07/16 00:22 Benadryl Inj IVP 25 mg Q6H PRN Administration Allergy Symptoms Docusate Sodium 250 - 500 mg 12/06/16 09:00 12/08/16 08:51 Colace 250mg Capsule PO 250 mg DAILY DIOR Administration Enoxaparin Sodium 40 mg 12/06/16 09:00 12/08/16 08:54 Lovenox SUBQ 40 mg DAILY DIOR Administration Fentanyl 25 mcg 12/07/16 16:36 12/08/16 21:53 Fentanyl IVP 25 mcg Q2HR PRN Administration PAIN Folic Acid 1 mg 12/06/16 09:00 12/08/16 09:07 PO 1 mg DAILY DIOR Administration Gabapentin 100 mg 12/06/16 12:30 12/09/16 07:51 Neurontin PO 100 mg TID DIOR Administration Acetaminophen 100 mls @ 400 mls/hr 12/06/16 07:00 12/09/16 07:51 Ofirmev IV 400 mls/hr Q6H DIOR Administration Potassium Chloride/Dextrose/Sod Cl 1,000 mls @ 30 mls/hr 12/07/16 14:38 13:34 D5.45ns W/20 Meq Kcl IV 30 mls/hr .[id number] DIOR Administration Ceftriaxone Sodium 2 gm/ 100 mls @ 200 mls/hr 12/08/16 12:00 12/08/16 11:47 Sodium Chloride IV 200 mls/hr DAILY DIOR Administration Ketorolac Tromethamine 30 mg 12/05/16 11:53 12/09/16 07:51 Toradol Inj IVP 12/10/16 11:52 30 mg Q6HR PRN Administration PAIN Ondansetron HCl 4 mg 12/05/16 11:48 12/07/16 01:04 Zofran Inj IVP 4 mg Q6HR PRN Administration Nausea / Vomiting Oxycodone HCl 10 mg 12/06/16 15:36 12/09/16 07:52 Roxicodone PO 10 mg TID PRN Administration PAIN Prochlorperazine Edisylate 10 mg 12/05/16 11:48 12/09/16 07:50 Compazine Inj IVP 10 mg Q6HR PRN Administration Nausea / Vomiting Senna 8.6 - 17.2 mg 12/06/16 09:00 12/08/16 08:50 Senokot PO 8.6 mg DAILY DIOR Administration Sodium Chloride 10 ml 12/05/16 11:48 12/08/16 21:53 Normal Saline Flush 0.9% IVP 10 ml PRN PRN Administration NEEDED PER PROVIDER ORDERS Sodium Chloride 10 ml 12/05/16 14:00 12/09/16 06:11 Normal Saline Flush 0.9% IVP Not Given Q8HR DIOR Topiramate 100 mg 12/05/16 21:00 12/08/16 21:51 Topamax PO 100 mg BID DIOR Administration Tramadol HCl 50 mg 12/06/16 12:02 12/08/16 18:05 Ultram PO 50 mg Q4HR PRN Administration PAIN - Lab Result Lab results reviewed: Yes Fish Bone Diagrams: 12/09/16 05:18 12/09/16 05:18 - Diagnostic Imaging Results Diagnostic Imaging Results: positive: Final report reviewed Diagnostic Imaging Results Comments: No DVT present - Additional Planning Condition/Complexity: Stable My Orders: My Active Orders 12/08/16 12:00 cefTRIAXone [Rocephin] 2 gm Sodium Chloride 0.9% Minibag [Normal Saline 0.9% Minibag] 100 ml IV DAILY 12/09/16 HEMOGLOBIN AND HEMATOCRIT [HEME] Routine RBC, LEUKOREDUCED Routine TYPE AND SCREEN Routine 12/09/16 08:59 Transfuse RBCs Leukoreduced [RC] ONCE FUROSEMIDE INJ 20mg VIAL [LASIX INJ 20mg VIAL] 20 mg IVP ONCE PRN Plan Discussed with:: Patient Time Spent: 15-30 minutes Subjective - Subjective Patient Reports: Abdominal Pain (Abdominal pain present. Does not feel like nausea. She believes she needs to have a BM.), Pain (Continues to complain of pain but has improved some over night), Other (No chest pain or dyspnea) Nursing Reports: Constipation, Pain Objective Vital Signs: Vital Signs - 24 hr 12/08/16 12/08/16 12/08/16 10:00 12:42 14:00 Temperature 36.9 C Heart Rate [ 87 Brachial] Respiratory 16 16 16 Rate Blood Pressure 107/60 [Right Brachial artery] O2 Saturation 97 12/08/16 12/08/16 12/08/16 17:00 21:00 23:52 Temperature 36.9 C 36.9 C 36.8 C Heart Rate [ 73 79 71 Brachial] Respiratory 18 18 16 Rate Blood Pressure 102/53 L 112/70 100/58 L [Right Brachial artery] O2 Saturation 99 98 96 12/09/16 12/09/16 04:35 08:00 Temperature 36.6 C 37.0 C Heart Rate [ 77 89 Brachial] Respiratory 16 18 Rate Blood Pressure 112/72 103/66 [Right Brachial artery] O2 Saturation 97 94 Oxygen O2 Source Room air I&O (Last 24 Hrs): Intake and Output Totals x24h 12/07/16 12/08/16 12/09/16 23:59 23:59 23:59 Intake Total 3095 2689 100 Output Total 2150 4300 1000 Balance 945 -1611 -900 General: Alert, Oriented x3 HEENT: Atraumatic, PERRLA, EOMI Neck: No JVD Neuro: Alert, CN 2-12 Grossly Intact Cardiovascular: Regular rate, Normal S1, Normal S2, No murmurs Respiratory: Chest non-tender, No respiratory distress, Breath sounds nml Abdomen: Normal bowel sounds, Other (tender to palpation along area of ascending and transverse colon) Extremities: No clubbing, Other (Tenderness to RLE. Post-op swelling present) Skin: No rashes, No breakdown - Results Results: Laboratory Results WBC 7.6 x10^3/uL (4.8-10.8) 12/09/16 05:18 RBC 2.28 10^6/uL (4.20-5.40) L 12/09/16 05:18 Hgb 7.1 g/dL (12.0-16.0) L 12/09/16 05:18 Hct 21.6 % (37.0-47.0) L 12/09/16 05:18 MCV 94.8 fL (81.0-99.0) 12/09/16 05:18 MCH 31.2 pg (27.0-31.0) H 12/09/16 05:18 MCHC 33.0 g/dL (32.0-36.0) 12/09/16 05:18 RDW 13.3 % (12.0-15.0) 12/09/16 05:18 Plt Count 181 10^3/uL (130-450) 12/09/16 05:18 MPV 7.3 fL (7.9-10.8) L 12/09/16 05:18 Neut # 4.7 10^3/uL (1.5-6.6) 12/06/16 16:10 Lymph # 2.6 10^3/uL (1.5-3.5) 12/06/16 16:10 [place] # 0.9 10^3/uL (0.0-1.0) 12/06/16 16:10 Eos # 0.1 10^3/uL (0.0-0.7) 12/06/16 16:10 Baso # 0.0 10^3/uL (0.0-0.1) 12/06/16 16:10 Absolute Nucleated RBC 0.00 x10^3/uL 12/06/16 16:10 Nucleated RBCs 0.0 /100WBC 12/06/16 16:10 Sodium 143 mmol/L (135-145) 12/09/16 05:18 Potassium 4.3 mmol/L (3.5-5.0) 12/09/16 05:18 Chloride 113 mmol/L (101-111) H 12/09/16 05:18 Carbon Dioxide 25 mmol/L (21-32) 12/09/16 05:18 Anion Gap 5.0 (6-13) L 12/09/16 05:18 BUN 19 mg/dL (6-20) 12/09/16 05:18 Creatinine 0.7 mg/dL (0.4-1.0) 12/09/16 05:18 Estimated GFR (MDRD) 87 (>89) L 12/09/16 05:18 Glucose 106 mg/dL (70-100) H 12/09/16 05:18 Calcium 8.4 mg/dL (8.5-10.3) L 12/09/16 05:18 Phosphorus 3.2 mg/dL (2.5-4.6) 12/06/16 16:10 Magnesium 1.8 mg/dL (1.7-2.8) 12/06/16 16:10 Total Bilirubin 0.3 mg/dL (0.2-1.0) 12/07/16 05:19 AST 12 IU/L (10-42) 12/07/16 05:19 ALT 12 IU/L (10-60) 12/07/16 05:19 Alkaline Phosphatase 48 IU/L (42-121) 12/07/16 05:19 Total Protein 4.8 g/dL (6.7-8.2) L 12/07/16 05:19 Albumin 2.7 g/dL (3.2-5.5) L 12/07/16 05:19 Globulin 2.0 g/dL (2.1-4.2) L 12/07/16 05:19 Albumin/Globulin Ratio 1.3 (1.0-2.2) 12/07/16 05:19 Vitamin B12 284 pg/mL (180-914) 12/06/16 16:10 25-OH Vitamin D Total 46 ng/mL (30-100) 12/06/16 16:10 25-Hydroxy Vitamin D2 <4 ng/mL (See Below) 12/06/16 16:10 25-Hydroxy Vitamin D3 46 ng/mL (See Below) 12/06/16 16:10 Urine Color YELLOW 12/08/16 05:50 Urine Clarity CLEAR (CLEAR) 12/08/16 05:50 Urine pH 7.0 PH (5.0-7.5) 12/08/16 05:50 Ur Specific [place] 1.010 (1.002-1.030) 12/08/16 05:50 Urine Protein NEGATIVE mg/dL (NEGATIVE) 12/08/16 05:50 Urine Glucose (UA) NEGATIVE mg/dL (NEGATIVE) 12/08/16 05:50 Urine Ketones NEGATIVE mg/dL (NEGATIVE) 12/08/16 05:50 Urine Occult Blood NEGATIVE (NEGATIVE) 12/08/16 05:50 Urine Nitrite NEGATIVE (NEGATIVE) 12/08/16 05:50 Urine Bilirubin NEGATIVE (NEGATIVE) 12/08/16 05:50 Urine Urobilinogen 0.2 (NORMAL) E.U./dL (NORMAL) 12/08/16 05:50 Ur Leukocyte Esterase NEGATIVE (NEGATIVE) 12/08/16 05:50 Urine RBC 0-5 /HPF (0-5) 12/08/16 05:50 Urine WBC 0-3 /HPF (0-5) 12/08/16 05:50 Ur Squamous Epith Cells MOD Squamous (<= Few) H 12/08/16 05:50 Urine Bacteria Few /HPF (None Seen) 12/08/16 05:50 Urine Culture Comments NOT INDICATED 12/08/16 05:50 Urine HCG, Qual NEGATIVE 12/05/16 06:30
[2016-12-09] MEDS: CALCIUM CARBONATE CHEW 500 MG TABLET PO SCH (09:39)
[2016-12-09] MEDS: CHOLECALCIFEROL 5,000 UNIT CAPSULE PO SCH (09:40)
[2016-12-09] MEDS: cefTRIAXone 2 GM in SODIUM CHLORIDE 0.9% MINIBAG 100 ML IV SCH (09:40)
[2016-12-09] MEDS: DOCUSATE SODIUM 250 MG CAPSULE PO SCH (09:41)
[2016-12-09] MEDS: FOLIC ACID 1 MG TABLET PO SCH (09:41)
[2016-12-09] MEDS: ENOXAPARIN 40 MG/0.4 ML SYRINGE SUBQ SCH (09:41)
[2016-12-09] MEDS: TOPIRAMATE 100 MG TABLET PO SCH ×2 (09:42→20:51)
[2016-12-09] MEDS: SENNA 8.6 MG TABLET PO SCH (09:43)
--- NOTE | 2016-12-09 09:44 | PROVIDER PROGRESS NOTE ---
Subjective - General Admit Date: 12/05/16 Procedure Date: 12/05/16 Post Op Days: 4 - Review of Systems Wound/Incisions: positive: Dressing dry and intact General: positive: Weakness Musculoskeletal: positive: Joint pain Objective - Patient Data Reviewed Vital Signs: Yes Vital Signs: Vital Signs x48h Temp Pulse Resp BP Pulse Ox 12/09/16 08:00 37.0 C 89 18 103/66 94 12/09/16 04:35 36.6 C 77 16 112/72 97 Intake & Output: Intake and Output Totals x24h 12/07/16 12/08/16 12/09/16 23:59 23:59 23:59 Intake Total 3095 2689 340 Output Total 2150 4300 1600 Balance 184 -9379 -6979 - Lab Results Lab Results: 12/09/16 05:18 12/09/16 05:18 Other Lab Results: Lab Results x24hrs 12/09/16 12/09/16 12/06/16 Range/Units 05:18 05:18 16:10 WBC 7.6 (4.8-10.8) x10^3/uL RBC 2.28 L (4.20-5.40) 10^6/uL Hgb 7.1 L (12.0-16.0) g/dL Hct 21.6 L (37.0-47.0) % MCV 94.8 (81.0-99.0) fL MCH 31.2 H (27.0-31.0) pg MCHC 33.0 (32.0-36.0) g/dL RDW 13.3 (12.0-15.0) % Plt Count 181 (130-450) 10^3/uL MPV 7.3 L (7.9-10.8) fL Sodium 143 (135-145) mmol/L Potassium 4.3 (3.5-5.0) mmol/L Chloride 113 H (101-111) mmol/L Carbon Dioxide 25 (21-32) mmol/L Anion Gap 5.0 L (6-13) BUN 19 (6-20) mg/dL Creatinine 0.7 (0.4-1.0) mg/dL Estimated GFR (MDRD) 87 L (>89) Glucose 106 H (70-100) mg/dL Calcium 8.4 L (8.5-10.3) mg/dL 25-OH Vitamin D Total 46 (30-100) ng/mL 25-Hydroxy Vitamin D2 <4 (See Below) ng/mL 25-Hydroxy Vitamin D3 46 (See Below) ng/mL - Current Medications Current Medications: Current Medications Generic Name Dose Route Start Last Admin Trade Name Freq PRN Reason Stop Dose Admin Acetaminophen 650 - 975 mg 12/05/16 11:48 12/06/16 00:00 Tylenol PO 975 mg Q4HR PRN Administration PAIN Calcium Carbonate/Glycine 1,500 mg 12/06/16 09:00 12/08/16 08:52 Tums PO 1,500 mg DAILY DIOR Administration Cholecalciferol 5,000 unit 12/06/16 09:00 12/08/16 08:50 Vitamin D3 PO 5,000 unit DAILY DIOR Administration Diphenhydramine HCl 25 mg 12/06/16 16:01 12/07/16 00:22 Benadryl Inj IVP 25 mg Q6H PRN Administration Allergy Symptoms Docusate Sodium 250 - 500 mg 12/06/16 09:00 12/08/16 08:51 Colace 250mg Capsule PO 250 mg DAILY DIOR Administration Enoxaparin Sodium 40 mg 12/06/16 09:00 12/08/16 08:54 Lovenox SUBQ 40 mg DAILY DIOR Administration Fentanyl 25 mcg 12/07/16 16:36 12/08/16 21:53 Fentanyl IVP 25 mcg Q2HR PRN Administration PAIN Folic Acid 1 mg 12/06/16 09:00 12/08/16 09:07 PO 1 mg DAILY DIOR Administration Gabapentin 100 mg 12/06/16 12:30 12/09/16 07:51 Neurontin PO 100 mg TID DIOR Administration Acetaminophen 100 mls @ 400 mls/hr 12/06/16 07:00 12/09/16 07:51 Ofirmev IV 400 mls/hr Q6H DIOR Administration Potassium Chloride/Dextrose/Sod Cl 1,000 mls @ 30 mls/hr 12/07/16 14:38 13:34 D5.45ns W/20 Meq Kcl IV 30 mls/hr .[id number] DIOR Administration Ceftriaxone Sodium 2 gm/ 100 mls @ 200 mls/hr 12/08/16 12:00 12/08/16 11:47 Sodium Chloride IV 200 mls/hr DAILY DIOR Administration Ketorolac Tromethamine 30 mg 12/05/16 11:53 12/09/16 07:51 Toradol Inj IVP 12/10/16 11:52 30 mg Q6HR PRN Administration PAIN Ondansetron HCl 4 mg 12/05/16 11:48 12/07/16 01:04 Zofran Inj IVP 4 mg Q6HR PRN Administration Nausea / Vomiting Oxycodone HCl 10 mg 12/06/16 15:36 12/09/16 07:52 Roxicodone PO 10 mg TID PRN Administration PAIN Prochlorperazine Edisylate 10 mg 12/05/16 11:48 12/09/16 07:50 Compazine Inj IVP 10 mg Q6HR PRN Administration Nausea / Vomiting Senna 8.6 - 17.2 mg 12/06/16 09:00 12/08/16 08:50 Senokot PO 8.6 mg DAILY DIOR Administration Sodium Chloride 10 ml 12/05/16 11:48 12/08/16 21:53 Normal Saline Flush 0.9% IVP 10 ml PRN PRN Administration NEEDED PER PROVIDER ORDERS Sodium Chloride 10 ml 12/05/16 14:00 12/09/16 06:11 Normal Saline Flush 0.9% IVP Not Given Q8HR DIOR Topiramate 100 mg 12/05/16 21:00 12/08/16 21:51 Topamax PO 100 mg BID DIOR Administration Tramadol HCl 50 mg 12/06/16 12:02 12/08/16 18:05 Ultram PO 50 mg Q4HR PRN Administration PAIN - Physical Exam Wound/Incisions: positive: Dressing dry and intact General Appearance: positive: No acute distress Skin: positive: Warm, Dry Extremities: positive: Joint swelling Neurologic/Psychiatric: positive: Motor nml, Sensation nml, Mood/affect nml Impression/Plan - Problem List Problem List: POD #4 Pt is doing better with pain control, but is sensing some weakness, fatigue with Post-op Anemia Will transfuse today. Delay Discharge, check hct tomorrow
[2016-12-09 09:51] LABS: HCT - HEMATOCRIT 21.4 % (37.0-47.0); HGB - HEMOGLOBIN 7.2 g/dL (12.0-16.0)
[2016-12-09] MEDS ORDERED: SODIUM CHLORIDE 0.9% 250 ML IV ONE (12:25)
[2016-12-09] MEDS: ACETAMINOPHEN 325 MG TABLET PO PRN (15:13)
[2016-12-10] MEDS: traMADol 50 MG TABLET PO PRN ×2 (00:40→06:53)
[2016-12-10] MEDS: D5.45NS W/20 MEQ KCL 1,000 ML IV SCH (00:52)
[2016-12-10] MEDS: ACETAMINOPHEN 325 MG TABLET PO PRN ×2 (03:15→22:04)
[2016-12-10] MEDS: fentaNYL 100 MCG/2 ML VIAL IVP PRN ×2 (03:15→09:05)
[2016-12-10 05:53] LABS: BASOPHILS % (AUTO) 0.4 %; EOSINOPHILS # (AUTO) 0.1 10^3/uL (0.0-0.7); EOSINOPHILS % (AUTO) 1.1 %; HCT - HEMATOCRIT 25.6 % (37.0-47.0); HGB - HEMOGLOBIN 8.8 g/dL (12.0-16.0); LYMPHOCYTES # (AUTO) 1.3 10^3/uL (1.5-3.5); LYMPHOCYTES % (AUTO) 15.4 %; MEAN CORPUSCULAR HEMOGLOBIN 31.7 pg (27.0-31.0); MEAN CORPUSCULAR HGB CONC 34.4 g/dL (32.0-36.0); MEAN CORPUSCULAR VOLUME 92.2 fL (81.0-99.0); MEAN PLATELET VOLUME 6.8 fL (7.9-10.8); MONOCYTES # (AUTO) 0.5 10^3/uL (0.0-1.0); MONOCYTES % (AUTO) 6.2 %; NEUTROPHILS # (AUTO) 6.4 10^3/uL (1.5-6.6); NEUTROPHILS % (AUTO) 76.9 %; RED BLOOD COUNT 2.78 10^6/uL (4.20-5.40); RED CELL DISTRIBUTION WIDTH 13.5 % (12.0-15.0); UNCORRECTED WHITE BLOOD COUNT 8.3 x10^3/uL; WHITE BLOOD COUNT 8.3 x10^3/uL (4.8-10.8)
[2016-12-10] MEDS: oxyCODONE 5 MG TABLET PO PRN ×2 (06:53→11:34)
[2016-12-10] MEDS: GABAPENTIN 100 MG CAPSULE PO SCH ×3 (06:53→21:56)
[2016-12-10] MEDS: SODIUM CHLORIDE FLUSH 0.9% 10 ML SYRINGE IVP SCH ×3 (06:53→21:56)
[2016-12-10] MEDS: ENOXAPARIN 40 MG/0.4 ML SYRINGE SUBQ SCH (09:03)
[2016-12-10] MEDS: DOCUSATE SODIUM 250 MG CAPSULE PO SCH (09:03)
[2016-12-10] MEDS: FOLIC ACID 1 MG TABLET PO SCH (09:04)
[2016-12-10] MEDS: TOPIRAMATE 100 MG TABLET PO SCH ×2 (09:04→21:56)
[2016-12-10] MEDS: CALCIUM CARBONATE CHEW 500 MG TABLET PO SCH (09:04)
[2016-12-10] MEDS: CHOLECALCIFEROL 5,000 UNIT CAPSULE PO SCH (09:04)
[2016-12-10] MEDS: SENNA 8.6 MG TABLET PO SCH (09:05)
--- NOTE | 2016-12-10 10:14 | PROVIDER PROGRESS NOTE ---
Subjective - General Admit Date: 12/05/16 Procedure Date: 12/05/16 Post Op Days: 5 Procedure Performed: Right total knee Arthroplasty - Review of Systems Wound/Incisions: positive: Dressing dry and intact General: positive: Weakness, Other (abdominal pain) Gastrointestinal: positive: Abdominal pain, Constipation (claims one "black" stool yesterday. She hoped for abdominal pain relief which didn't happen) Musculoskeletal: positive: Joint pain Objective - Patient Data Reviewed Vital Signs: Yes Vital Signs: Vital Signs x48h Temp Pulse Resp BP Pulse Ox 12/10/16 07:51 36.6 C 84 15 114/72 94 12/10/16 04:18 37.3 C 93 16 124/72 95 Intake & Output: Intake and Output Totals x24h 12/08/16 12/09/16 12/10/16 23:59 23:59 23:59 Intake Total 2689 2076 298 Output Total 4300 2900 900 Balance -1611 -824 -602 - Lab Results Lab Results: 12/10/16 05:10 12/09/16 05:18 Other Lab Results: Lab Results x24hrs 12/10/16 12/09/16 12/09/16 Range/Units 05:10 09:35 05:18 WBC 8.3 (4.8-10.8) x10^3/uL RBC 2.78 L (4.20-5.40) 10^6/uL Hgb 8.8 L (12.0-16.0) g/dL Hct 25.6 L (37.0-47.0) % MCV 92.2 (81.0-99.0) fL MCH 31.7 H (27.0-31.0) pg MCHC 34.4 (32.0-36.0) g/dL RDW 13.5 (12.0-15.0) % Plt Count 216 (130-450) 10^3/uL MPV 6.8 L (7.9-10.8) fL Neut # 6.4 (1.5-6.6) 10^3/uL Lymph # 1.3 L (1.5-3.5) 10^3/uL [place] # 0.5 (0.0-1.0) 10^3/uL Eos # 0.1 (0.0-0.7) 10^3/uL Baso # 0.0 (0.0-0.1) 10^3/uL Absolute Nucleated RBC 0.00 x10^3/uL Nucleated RBCs 0.0 /100WBC Blood Type O POSITIVE Blood Type Recheck O POSITIVE Antibody Screen NEGATIVE Crossmatch IS Only See Detail - Current Medications Current Medications: Current Medications Generic Name Dose Route Start Last Admin Trade Name Freq PRN Reason Stop Dose Admin Acetaminophen 650 - 975 mg 12/05/16 11:48 12/10/16 03:15 Tylenol PO 975 mg Q4HR PRN Administration PAIN Calcium Carbonate/Glycine 1,500 mg 12/06/16 09:00 12/10/16 09:04 Tums PO 1,500 mg DAILY DIOR Administration Cholecalciferol 5,000 unit 12/06/16 09:00 12/10/16 09:04 Vitamin D3 PO 5,000 unit DAILY DIOR Administration Diphenhydramine HCl 25 mg 12/06/16 16:01 12/07/16 00:22 Benadryl Inj IVP 25 mg Q6H PRN Administration Allergy Symptoms Docusate Sodium 250 - 500 mg 12/06/16 09:00 12/10/16 09:03 Colace 250mg Capsule PO 500 mg DAILY DIOR Administration Fentanyl 25 mcg 12/07/16 16:36 12/10/16 09:05 Fentanyl IVP 25 mcg Q2HR PRN Administration PAIN Folic Acid 1 mg 12/06/16 09:00 12/10/16 09:04 PO 1 mg DAILY DIOR Administration Gabapentin 100 mg 12/06/16 12:30 12/10/16 06:53 Neurontin PO 100 mg TID DIOR Administration Potassium Chloride/Dextrose/Sod Cl 1,000 mls @ 30 mls/hr 12/07/16 14:38 00:52 D5.45ns W/20 Meq Kcl IV 30 mls/hr .[id number] DIOR Administration Ketorolac Tromethamine 30 mg 12/05/16 11:53 12/09/16 19:07 Toradol Inj IVP 12/10/16 11:52 30 mg Q6HR PRN Administration PAIN Ondansetron HCl 4 mg 12/05/16 11:48 12/07/16 01:04 Zofran Inj IVP 4 mg Q6HR PRN Administration Nausea / Vomiting Oxycodone HCl 10 mg 12/06/16 15:36 12/10/16 06:53 Roxicodone PO 10 mg TID PRN Administration PAIN Prochlorperazine Edisylate 10 mg 12/05/16 11:48 12/09/16 19:07 Compazine Inj IVP 10 mg Q6HR PRN Administration Nausea / Vomiting Senna 8.6 - 17.2 mg 12/06/16 09:00 12/10/16 09:05 Senokot PO 8.6 mg DAILY DIOR Administration Sodium Chloride 10 ml 12/05/16 11:48 12/08/16 21:53 Normal Saline Flush 0.9% IVP 10 ml PRN PRN Administration NEEDED PER PROVIDER ORDERS Sodium Chloride 10 ml 12/05/16 14:00 12/10/16 06:53 Normal Saline Flush 0.9% IVP Not Given Q8HR DIOR Topiramate 100 mg 12/05/16 21:00 12/10/16 09:04 Topamax PO 100 mg BID DIOR Administration Tramadol HCl 50 mg 12/06/16 12:02 12/10/16 06:53 Ultram PO 50 mg Q4HR PRN Administration PAIN - Physical Exam Wound/Incisions: positive: Dressing dry and intact General Appearance: positive: Mild distress Abdomen: positive: Other (Pt has mild distention, but active BS, and recent BM) Skin: positive: Warm, Dry Neurologic/Psychiatric: positive: Motor nml, Sensation nml, Mood/affect nml Impression/Plan - Problem List Problem List: Ortho: (X-Cover): Pt is having some additional problems (abdominal pain) that are slowing her recovery. She will have PT in spite of the abdominal pain. Will D/C Lovenox in the face of "BLACK" stool. Hct to be monitored again tomorrow.
--- NOTE | 2016-12-10 10:27 | XRAY Preliminary Report ---
Exam: XR Abdomen 2 View IMPRESSION: No bowel obstruction. [facility] SITE ID: [id number]
--- NOTE | 2016-12-10 10:29 | XRAY Report ---
EXAM: ABDOMEN RADIOGRAPHY EXAM DATE: 12/10/2016 10:10 AM. CLINICAL HISTORY: Abdominal pain. COMPARISON: None. TECHNIQUE: 2 views. FINDINGS: Lung Bases: Unremarkable. Bowel Gas Pattern: Within normal limits. No dilated loops or abnormal fluid levels. Free Air: None. Other: None. IMPRESSION: No bowel obstruction. [facility] Referring Provider Line: [phone] SITE ID: [id number]
[2016-12-10] MEDS: ONDANSETRON 4 MG/2 ML VIAL IVP PRN (11:35)
[2016-12-10] MEDS: KETOROLAC 30 MG/ML VIAL IVP PRN (11:35)
--- NOTE | 2016-12-10 14:40 | PROVIDER PROGRESS NOTE ---
Assessment/Plan - Problem List (1) Status post total right knee replacement Assessment/Plan: Pain in right knee stable. Blood cultures negative to date. Vascular US negative for DVT. Plan: Continue current medications. Work with physical therapy. Anticipate discharge to Rehab center 1-2 days. (2) Obesity (BMI 30.0-34.9) Assessment/Plan: Encourage efforts at wt loss (3) Chronic pain Assessment/Plan: Stable pain today. No exacerbations. Will continue to monitor for changes. No new medications (4) Postoperative anemia Assessment/Plan: S/P transfusion. Now appears this may have been related to GI blood loss. Work up in progress. (5) GI bleed Assessment/Plan: PT reports black tarry stool. Suspect her anemia as a result of GI bleeding. Abdominal pain is present with nausea. May be from consipation however cannot exclude GI bleed, PUD as etiology. Plan for Protonix 40 mg BID. Will have her seen by Surgery to discuss EGD, Colonoscopy. Recheck H/H in AM. Change to clear liquid diet. - Current Meds Current Meds: Current Medications Generic Name Dose Route Start Last Admin Trade Name Freq PRN Reason Stop Dose Admin Acetaminophen 650 - 975 mg 12/05/16 11:48 12/10/16 03:15 Tylenol PO 975 mg Q4HR PRN Administration PAIN Calcium Carbonate/Glycine 1,500 mg 12/06/16 09:00 12/10/16 09:04 Tums PO 1,500 mg DAILY DIOR Administration Cholecalciferol 5,000 unit 12/06/16 09:00 12/10/16 09:04 Vitamin D3 PO 5,000 unit DAILY DIOR Administration Diphenhydramine HCl 25 mg 12/06/16 16:01 12/07/16 00:22 Benadryl Inj IVP 25 mg Q6H PRN Administration Allergy Symptoms Docusate Sodium 250 - 500 mg 12/06/16 09:00 12/10/16 09:03 Colace 250mg Capsule PO 500 mg DAILY DIOR Administration Folic Acid 1 mg 12/06/16 09:00 12/10/16 09:04 PO 1 mg DAILY DIOR Administration Gabapentin 100 mg 12/06/16 12:30 12/10/16 06:53 Neurontin PO 100 mg TID DIOR Administration Potassium Chloride/Dextrose/Sod Cl 1,000 mls @ 30 mls/hr 12/07/16 14:38 00:52 D5.45ns W/20 Meq Kcl IV 30 mls/hr .[id number] DIOR Administration Ondansetron HCl 4 mg 12/05/16 11:48 12/10/16 11:35 Zofran Inj IVP 4 mg Q6HR PRN Administration Nausea / Vomiting Oxycodone HCl 10 mg 12/06/16 15:36 12/10/16 11:34 Roxicodone PO 10 mg TID PRN Administration PAIN Prochlorperazine Edisylate 10 mg 12/05/16 11:48 12/09/16 19:07 Compazine Inj IVP 10 mg Q6HR PRN Administration Nausea / Vomiting Senna 8.6 - 17.2 mg 12/06/16 09:00 12/10/16 09:05 Senokot PO 8.6 mg DAILY DIOR Administration Sodium Chloride 10 ml 12/05/16 11:48 12/08/16 21:53 Normal Saline Flush 0.9% IVP 10 ml PRN PRN Administration NEEDED PER PROVIDER ORDERS Sodium Chloride 10 ml 12/05/16 14:00 12/10/16 06:53 Normal Saline Flush 0.9% IVP Not Given Q8HR DIOR Topiramate 100 mg 12/05/16 21:00 12/10/16 09:04 Topamax PO 100 mg BID DIOR Administration Tramadol HCl 50 mg 12/06/16 12:02 12/10/16 06:53 Ultram PO 50 mg Q4HR PRN Administration PAIN - Lab Result Lab results reviewed: Yes Fish Bone Diagrams: 12/10/16 05:10 12/09/16 05:18 - Diagnostic Imaging Results Diagnostic Imaging Results: positive: Prelim report reviewed - Additional Planning Condition/Complexity: Stable My Orders: My Active Orders 12/10/16 Guiaic [OCCULT BLOOD IN PAT. SINGLE] [RAPID] Routine 12/10/16 16:00 Pantoprazole [Protonix] 40 mg PO BIDAC 12/10/16 17:00 Ferrous Sulfate [Feosol] 325 mg PO BIDWM Plan Discussed with:: Patient, Family Time Spent: 15-30 minutes Subjective - Subjective Patient Reports: Other (Pt with abdominal pain especially after eating. She reports black, tarry stool. Nausea present.) Nursing Reports: Nausea Objective Vital Signs: Vital Signs - 24 hr 12/09/16 12/09/16 12/09/16 16:00 18:50 20:05 Temperature 36.9 C 37.0 C 36.8 C Heart Rate [ 79 89 Brachial] Respiratory 18 18 16 Rate Blood Pressure 99/61 102/64 111/67 [Right Brachial artery] O2 Saturation 97 98 12/09/16 12/10/16 12/10/16 23:45 04:18 07:51 Temperature 36.9 C 37.3 C 36.6 C Heart Rate [ 90 93 84 Brachial] Respiratory 16 16 15 Rate Blood Pressure 113/66 124/72 114/72 [Right Brachial artery] O2 Saturation 96 95 94 12/10/16 14:34 Temperature 36.8 C Heart Rate [ 71 Brachial] Respiratory 18 Rate Blood Pressure 114/68 [Right Brachial artery] O2 Saturation 97 Oxygen O2 Source Room air I&O (Last 24 Hrs): Intake and Output Totals x24h 12/08/16 12/09/16 12/10/16 23:59 23:59 23:59 Intake Total 2689 2076 948 Output Total 4300 2900 900 Balance -1611 -824 48 General: Alert, Oriented x3 HEENT: PERRLA, EOMI Neck: No JVD Neuro: Alert, CN 2-12 Grossly Intact Cardiovascular: Regular rate, Other (1/6 SEFERINO) Respiratory: Chest non-tender, No respiratory distress, Breath sounds nml Abdomen: Other (tenderness, positive BS) Skin: No rashes, No breakdown - Results Results: Laboratory Results WBC 8.3 x10^3/uL (4.8-10.8) 12/10/16 05:10 RBC 2.78 10^6/uL (4.20-5.40) L 12/10/16 05:10 Hgb 8.8 g/dL (12.0-16.0) L 12/10/16 05:10 Hct 25.6 % (37.0-47.0) L 12/10/16 05:10 MCV 92.2 fL (81.0-99.0) 12/10/16 05:10 MCH 31.7 pg (27.0-31.0) H 12/10/16 05:10 MCHC 34.4 g/dL (32.0-36.0) 12/10/16 05:10 RDW 13.5 % (12.0-15.0) 12/10/16 05:10 Plt Count 216 10^3/uL (130-450) 12/10/16 05:10 MPV 6.8 fL (7.9-10.8) L 12/10/16 05:10 Neut # 6.4 10^3/uL (1.5-6.6) 12/10/16 05:10 Lymph # 1.3 10^3/uL (1.5-3.5) L 12/10/16 05:10 Mckean # 0.5 10^3/uL (0.0-1.0) 12/10/16 05:10 Eos # 0.1 10^3/uL (0.0-0.7) 12/10/16 05:10 Baso # 0.0 10^3/uL (0.0-0.1) 12/10/16 05:10 Absolute Nucleated RBC 0.00 x10^3/uL 12/10/16 05:10 Nucleated RBCs 0.0 /100WBC 12/10/16 05:10 Sodium 143 mmol/L (135-145) 12/09/16 05:18 Potassium 4.3 mmol/L (3.5-5.0) 12/09/16 05:18 Chloride 113 mmol/L (101-111) H 12/09/16 05:18 Carbon Dioxide 25 mmol/L (21-32) 12/09/16 05:18 Anion Gap 5.0 (6-13) L 12/09/16 05:18 BUN 19 mg/dL (6-20) 12/09/16 05:18 Creatinine 0.7 mg/dL (0.4-1.0) 12/09/16 05:18 Estimated GFR (MDRD) 87 (>89) L 12/09/16 05:18 Glucose 106 mg/dL (70-100) H 12/09/16 05:18 Calcium 8.4 mg/dL (8.5-10.3) L 12/09/16 05:18 Phosphorus 3.2 mg/dL (2.5-4.6) 12/06/16 16:10 Magnesium 1.8 mg/dL (1.7-2.8) 12/06/16 16:10 Total Bilirubin 0.3 mg/dL (0.2-1.0) 12/07/16 05:19 AST 12 IU/L (10-42) 12/07/16 05:19 ALT 12 IU/L (10-60) 12/07/16 05:19 Alkaline Phosphatase 48 IU/L (42-121) 12/07/16 05:19 Total Protein 4.8 g/dL (6.7-8.2) L 12/07/16 05:19 Albumin 2.7 g/dL (3.2-5.5) L 12/07/16 05:19 Globulin 2.0 g/dL (2.1-4.2) L 12/07/16 05:19 Albumin/Globulin Ratio 1.3 (1.0-2.2) 12/07/16 05:19 Vitamin B12 284 pg/mL (180-914) 12/06/16 16:10 25-OH Vitamin D Total 46 ng/mL (30-100) 12/06/16 16:10 25-Hydroxy Vitamin D2 <4 ng/mL (See Below) 12/06/16 16:10 25-Hydroxy Vitamin D3 46 ng/mL (See Below) 12/06/16 16:10 Urine Color YELLOW 12/08/16 05:50 Urine Clarity CLEAR (CLEAR) 12/08/16 05:50 Urine pH 7.0 PH (5.0-7.5) 12/08/16 05:50 Ur Specific [place] 1.010 (1.002-1.030) 12/08/16 05:50 Urine Protein NEGATIVE mg/dL (NEGATIVE) 12/08/16 05:50 Urine Glucose (UA) NEGATIVE mg/dL (NEGATIVE) 12/08/16 05:50 Urine Ketones NEGATIVE mg/dL (NEGATIVE) 12/08/16 05:50 Urine Occult Blood NEGATIVE (NEGATIVE) 12/08/16 05:50 Urine Nitrite NEGATIVE (NEGATIVE) 12/08/16 05:50 Urine Bilirubin NEGATIVE (NEGATIVE) 12/08/16 05:50 Urine Urobilinogen 0.2 (NORMAL) E.U./dL (NORMAL) 12/08/16 05:50 Ur Leukocyte Esterase NEGATIVE (NEGATIVE) 12/08/16 05:50 Urine RBC 0-5 /HPF (0-5) 12/08/16 05:50 Urine WBC 0-3 /HPF (0-5) 12/08/16 05:50 Ur Squamous Epith Cells MOD Squamous (<= Few) H 12/08/16 05:50 Urine Bacteria Few /HPF (None Seen) 12/08/16 05:50 Urine Culture Comments NOT INDICATED 12/08/16 05:50 Urine HCG, Qual NEGATIVE 12/05/16 06:30 Blood Type O POSITIVE 12/09/16 09:35 Blood Type Recheck O POSITIVE 12/09/16 05:18 Antibody Screen NEGATIVE 12/09/16 09:35 Crossmatch IS Only See Detail 12/09/16 09:35
[2016-12-10] MEDS: SUCRALFATE 1 GM/10 ML UDC PO SCH ×2 (16:03→22:04)
[2016-12-10] MEDS: PANTOPRAZOLE 40 MG TABLET PO SCH (16:04)
[2016-12-10] MEDS: FERROUS SULFATE 325 MG TABLET PO SCH (16:26)
[2016-12-11] MEDS: oxyCODONE 5 MG TABLET PO PRN ×3 (01:03→19:12)
[2016-12-11 02:00] LABS: BILIRUBIN,URINE NEGATIVE (NEGATIVE)
[2016-12-11 02:05] LABS: UA CHARGE (STRIP ONLY) YES
[2016-12-11 06:01] LABS: HCT - HEMATOCRIT 25.2 % (37.0-47.0); HGB - HEMOGLOBIN 8.4 g/dL (12.0-16.0); MEAN CORPUSCULAR HEMOGLOBIN 31.2 pg (27.0-31.0); MEAN CORPUSCULAR HGB CONC 33.6 g/dL (32.0-36.0); MEAN PLATELET VOLUME 6.5 fL (7.9-10.8); RED BLOOD COUNT 2.71 10^6/uL (4.20-5.40); RED CELL DISTRIBUTION WIDTH 13.6 % (12.0-15.0); WHITE BLOOD COUNT 6.6 x10^3/uL (4.8-10.8)
[2016-12-11] MEDS: GABAPENTIN 100 MG CAPSULE PO SCH ×3 (06:16→20:42)
[2016-12-11] MEDS: SODIUM CHLORIDE FLUSH 0.9% 10 ML SYRINGE IVP SCH ×3 (06:17→20:43)
[2016-12-11] MEDS: PANTOPRAZOLE 40 MG TABLET PO SCH ×2 (06:17→17:20)
[2016-12-11] MEDS: traMADol 50 MG TABLET PO PRN ×2 (06:17→20:42)
[2016-12-11] MEDS: SUCRALFATE 1 GM/10 ML UDC PO SCH ×4 (06:17→20:44)
[2016-12-11] MEDS: CHOLECALCIFEROL 5,000 UNIT CAPSULE PO SCH (09:03)
[2016-12-11] MEDS: CALCIUM CARBONATE CHEW 500 MG TABLET PO SCH (09:03)
[2016-12-11] MEDS: ONDANSETRON 4 MG/2 ML VIAL IVP PRN ×2 (09:03→22:15)
[2016-12-11] MEDS: FERROUS SULFATE 325 MG TABLET PO SCH ×2 (09:03→17:20)
[2016-12-11] MEDS: SENNA 8.6 MG TABLET PO SCH (09:05)
[2016-12-11] MEDS: FOLIC ACID 1 MG TABLET PO SCH (09:05)
[2016-12-11] MEDS: TOPIRAMATE 100 MG TABLET PO SCH ×2 (09:05→20:42)
[2016-12-11] MEDS: DOCUSATE SODIUM 250 MG CAPSULE PO SCH (09:05)
[2016-12-11] MEDS: ACETAMINOPHEN 325 MG TABLET PO PRN ×2 (10:37→17:20)
--- NOTE | 2016-12-11 11:57 | PROVIDER PROGRESS NOTE ---
Assessment/Plan - Problem List (1) Status post total right knee replacement Assessment/Plan: Doing well. Improving daily. Will need post hospitalization PT to complete rehab and optimize mobility (2) Obesity (BMI 30.0-34.9) Assessment/Plan: Encourage continued efforts at weight reduction (3) Chronic pain Assessment/Plan: Controlled today. Appropriate use of PRN medications (4) Postoperative anemia Assessment/Plan: Suspect anemia was exacerbated by GI bleeding. Plan for upper endoscopy today (5) GI bleed Assessment/Plan: H/H stable. Upper endoscopy planned for today. PT is on Carafate and Protonix. Will continue on discharge - Current Meds Current Meds: Current Medications Generic Name Dose Route Start Last Admin Trade Name Freq PRN Reason Stop Dose Admin Acetaminophen 650 - 975 mg 12/05/16 11:48 12/11/16 10:37 Tylenol PO 650 mg Q4HR PRN Administration PAIN Calcium Carbonate/Glycine 1,500 mg 12/06/16 09:00 12/11/16 09:03 Tums PO Not Given DAILY [facility] Cholecalciferol 5,000 unit 12/06/16 09:00 12/11/16 09:03 Vitamin D3 PO Not Given DAILY [facility] Diphenhydramine HCl 25 mg 12/06/16 16:01 12/07/16 00:22 Benadryl Inj IVP 25 mg Q6H PRN Administration Allergy Symptoms Docusate Sodium 250 - 500 mg 12/06/16 09:00 12/11/16 09:05 Colace 250mg Capsule PO Not Given DAILY DIOR Ferrous Sulfate 325 mg 12/10/16 17:00 12/11/16 09:03 Feosol PO Not Given BIDWM DIOR Folic Acid 1 mg 12/06/16 09:00 12/11/16 09:05 PO Not Given DAILY DIOR Gabapentin 100 mg 12/06/16 12:30 12/11/16 06:16 Neurontin PO 100 mg TID DIOR Administration Potassium Chloride/Dextrose/Sod Cl 1,000 mls @ 30 mls/hr 12/07/16 14:38 00:52 D5.45ns W/20 Meq Kcl IV 30 mls/hr .[id number] DIOR Administration Ondansetron HCl 4 mg 12/05/16 11:48 12/11/16 09:03 Zofran Inj IVP 4 mg Q6HR PRN Administration Nausea / Vomiting Oxycodone HCl 10 mg 12/06/16 15:36 12/11/16 09:02 Roxicodone PO 10 mg TID PRN Administration PAIN Pantoprazole Sodium 40 mg 12/10/16 16:00 12/11/16 06:17 Protonix PO 40 mg BIDAC DIOR Administration Prochlorperazine Edisylate 10 mg 12/05/16 11:48 12/09/16 19:07 Compazine Inj IVP 10 mg Q6HR PRN Administration Nausea / Vomiting Senna 8.6 - 17.2 mg 12/06/16 09:00 12/11/16 09:05 Senokot PO Not Given DAILY DIOR Sodium Chloride 10 ml 12/05/16 11:48 12/08/16 21:53 Normal Saline Flush 0.9% IVP 10 ml PRN PRN Administration NEEDED PER PROVIDER ORDERS Sodium Chloride 10 ml 12/05/16 14:00 12/11/16 06:17 Normal Saline Flush 0.9% IVP 10 ml Q8HR DIOR Administration Sucralfate 1 gm 12/10/16 16:00 12/11/16 10:38 Carafate PO 1 gm 0700,1100,1600,2200 DIOR Administration Topiramate 100 mg 12/05/16 21:00 12/11/16 09:05 Topamax PO Not Given BID DIOR Tramadol HCl 50 mg 12/06/16 12:02 12/11/16 06:17 Ultram PO 50 mg Q4HR PRN Administration PAIN - Lab Result Lab results reviewed: Yes Fish Bone Diagrams: 12/11/16 05:40 12/09/16 05:18 - Additional Planning Condition/Complexity: Stable My Orders: My Active Orders 12/10/16 16:00 Pantoprazole [Protonix] 40 mg PO BIDAC Sucralfate [Carafate] 1 gm PO 0700,1100,1600,2200 12/10/16 17:00 Ferrous Sulfate [Feosol] 325 mg PO BIDWM 12/10/16 Dinner Clear Liquid Diet [DIET] Plan Discussed with:: Patient, Family Time Spent: 15-30 minutes Subjective - Subjective Patient Reports: Feeling Better, Other (Still having some abdominal pain especially after eating or drinking. No new complaints today) Nursing Reports: No Complaints (Doing well in therapy. Mobilizing as directed) Objective Vital Signs: Vital Signs - 24 hr 12/10/16 12/10/16 12/10/16 14:34 15:50 21:30 Temperature 36.8 C 36.6 C 38.3 C H Heart Rate [ 71 81 91 Brachial] Respiratory 18 16 16 Rate Blood Pressure 114/68 106/65 118/76 [Right Brachial artery] O2 Saturation 97 97 97 12/11/16 12/11/16 12/11/16 00:46 04:35 07:43 Temperature 36.8 C 37.6 C H 37.4 C Heart Rate [ 88 90 82 Brachial] Respiratory 16 16 17 Rate Blood Pressure 121/72 123/75 119/80 [Right Brachial artery] O2 Saturation 94 97 95 12/11/16 09:05 Temperature 37.4 C Heart Rate [ Brachial] Respiratory Rate Blood Pressure [Right Brachial artery] O2 Saturation Oxygen O2 Source Room air I&O (Last 24 Hrs): Intake and Output Totals x24h 12/09/16 12/10/16 12/11/16 23:59 23:59 23:59 Intake Total 2076 1608 Output Total 2900 900 1300 Balance -824 708 -1300 General: Alert, Oriented x3, No acute distress HEENT: PERRLA, EOMI Neck: No JVD Neuro: Alert, CN 2-12 Grossly Intact Cardiovascular: Regular rate, Normal S1, Normal S2 Respiratory: Chest non-tender, Breath sounds nml Abdomen: Normal bowel sounds Extremities: No edema, Other (ecchymosis posterior RLE.) Skin: No rashes - Results Results: Laboratory Results WBC 6.6 x10^3/uL (4.8-10.8) 12/11/16 05:40 RBC 2.71 10^6/uL (4.20-5.40) L 12/11/16 05:40 Hgb 8.4 g/dL (12.0-16.0) L 12/11/16 05:40 Hct 25.2 % (37.0-47.0) L 12/11/16 05:40 MCV 93.0 fL (81.0-99.0) 12/11/16 05:40 MCH 31.2 pg (27.0-31.0) H 12/11/16 05:40 MCHC 33.6 g/dL (32.0-36.0) 12/11/16 05:40 RDW 13.6 % (12.0-15.0) 12/11/16 05:40 Plt Count 252 10^3/uL (130-450) 12/11/16 05:40 MPV 6.5 fL (7.9-10.8) L 12/11/16 05:40 Neut # 6.4 10^3/uL (1.5-6.6) 12/10/16 05:10 Lymph # 1.3 10^3/uL (1.5-3.5) L 12/10/16 05:10 [place] # 0.5 10^3/uL (0.0-1.0) 12/10/16 05:10 Eos # 0.1 10^3/uL (0.0-0.7) 12/10/16 05:10 Baso # 0.0 10^3/uL (0.0-0.1) 12/10/16 05:10 Absolute Nucleated RBC 0.00 x10^3/uL 12/10/16 05:10 Nucleated RBCs 0.0 /100WBC 12/10/16 05:10 Sodium 143 mmol/L (135-145) 12/09/16 05:18 Potassium 4.3 mmol/L (3.5-5.0) 12/09/16 05:18 Chloride 113 mmol/L (101-111) H 12/09/16 05:18 Carbon Dioxide 25 mmol/L (21-32) 12/09/16 05:18 Anion Gap 5.0 (6-13) L 12/09/16 05:18 BUN 19 mg/dL (6-20) 12/09/16 05:18 Creatinine 0.7 mg/dL (0.4-1.0) 12/09/16 05:18 Estimated GFR (MDRD) 87 (>89) L 12/09/16 05:18 Glucose 106 mg/dL (70-100) H 12/09/16 05:18 POC Whole Bld Glucose 102 mg/dL (70 - 100) H 12/11/16 11:31 Calcium 8.4 mg/dL (8.5-10.3) L 12/09/16 05:18 Phosphorus 3.2 mg/dL (2.5-4.6) 12/06/16 16:10 Magnesium 1.8 mg/dL (1.7-2.8) 12/06/16 16:10 Total Bilirubin 0.3 mg/dL (0.2-1.0) 12/07/16 05:19 AST 12 IU/L (10-42) 12/07/16 05:19 ALT 12 IU/L (10-60) 12/07/16 05:19 Alkaline Phosphatase 48 IU/L (42-121) 12/07/16 05:19 Total Protein 4.8 g/dL (6.7-8.2) L 12/07/16 05:19 Albumin 2.7 g/dL (3.2-5.5) L 12/07/16 05:19 Globulin 2.0 g/dL (2.1-4.2) L 12/07/16 05:19 Albumin/Globulin Ratio 1.3 (1.0-2.2) 12/07/16 05:19 Vitamin B12 284 pg/mL (180-914) 12/06/16 16:10 25-OH Vitamin D Total 46 ng/mL (30-100) 12/06/16 16:10 25-Hydroxy Vitamin D2 <4 ng/mL (See Below) 12/06/16 16:10 25-Hydroxy Vitamin D3 46 ng/mL (See Below) 12/06/16 16:10 Urine Color YELLOW 12/11/16 00:50 Urine Clarity CLEAR (CLEAR) 12/11/16 00:50 Urine pH 7.0 PH (5.0-7.5) 12/11/16 00:50 Ur Specific [place] 1.010 (1.002-1.030) 12/11/16 00:50 Urine Protein NEGATIVE mg/dL (NEGATIVE) 12/11/16 00:50 Urine Glucose (UA) NEGATIVE mg/dL (NEGATIVE) 12/11/16 00:50 Urine Ketones NEGATIVE mg/dL (NEGATIVE) 12/11/16 00:50 Urine Occult Blood NEGATIVE (NEGATIVE) 12/11/16 00:50 Urine Nitrite NEGATIVE (NEGATIVE) 12/11/16 00:50 Urine Bilirubin NEGATIVE (NEGATIVE) 12/11/16 00:50 Urine Urobilinogen 0.2 (NORMAL) E.U./dL (NORMAL) 12/11/16 00:50 Ur Leukocyte Esterase NEGATIVE (NEGATIVE) 12/11/16 00:50 Urine RBC 0-5 /HPF (0-5) 12/08/16 05:50 Urine WBC 0-3 /HPF (0-5) 12/08/16 05:50 Ur Squamous Epith Cells MOD Squamous (<= Few) H 12/08/16 05:50 Urine Bacteria Few /HPF (None Seen) 12/08/16 05:50 Ur Microscopic Review NOT INDICATED 12/11/16 00:50 Urine Culture Comments NOT INDICATED 12/08/16 05:50 Urine HCG, Qual NEGATIVE 12/05/16 06:30 Blood Type O POSITIVE 12/09/16 09:35 Blood Type Recheck O POSITIVE 12/09/16 05:18 Antibody Screen NEGATIVE 12/09/16 09:35 Crossmatch IS Only See Detail 12/09/16 09:35
[2016-12-11] MEDS ORDERED: fentaNYL 100 MCG/2 ML VIAL IVP ONE (13:00)
[2016-12-11] MEDS ORDERED: MIDAZOLAM 2 MG/2 ML VIAL IVP ONE (13:00)
[2016-12-11] MEDS ORDERED: PROPOFOL 200 MG/20 ML VIAL IVP ONE (13:00)
[2016-12-11] MEDS ORDERED: LIDOCAINE-MPF 2% 5 ML VIAL IM ONE (13:00)
[2016-12-11] MEDS ORDERED: DEXTROSE 5%-0.45% NACL 1,000 ML IV ONE ×2 (13:01→14:03)
[2016-12-11] MEDS ORDERED: BENZOCAINE/TETRACAINE/BUTAMBEN SPRAY 56 GM TOP ONE (13:06)
[2016-12-11] MEDS ORDERED: LIDO GARGLE 30 ML BOTTLE PO ONE (13:07)
[2016-12-11] MEDS ORDERED: LACTATED RINGERS 1,000 ML IV ONE (13:07)
[2016-12-11] MEDS ORDERED: IOPAMIDOL-300 100 ML VIAL IVP ONE (16:20)
[2016-12-11] MEDS ORDERED: IOPAMIDOL-300 50 ML VIAL PO ONE (16:27)
--- NOTE | 2016-12-11 17:07 | CT Preliminary Report ---
Exam: CT Abdomen/Pelvis W/ IMPRESSION: 1. Moderate hiatal hernia. 2. A couple of diverticula at the descending colon sigmoid colon junction. No evidence for acute dive rticulitis. No acute bowel findings are seen. Normal appendix. 3. A few subserosal uterine fibroids. [facility] SITE ID: [id number]
--- NOTE | 2016-12-11 17:09 | CT Report ---
EXAM: CT ABDOMEN AND PELVIS EXAM DATE: 12/11/2016 04:23 PM. CLINICAL HISTORY: Abdominal pain and possible source of bleeding. COMPARISONS: None. TECHNIQUE: Routine helical CT imaging was performed through the abdomen and pelvis. IV contrast: 100 mL Isovue 300. Enteric contrast: yes. Reconstructions: Coronal and sagittal. In accordance with CT protocol optimization, one or more of the following dose reduction techniques w ere utilized for this exam: automated exposure control, adjustment of mA and/or KV based on patient s ize, or use of iterative reconstructive technique. FINDINGS: Lung Bases: Moderate hiatal hernia. Liver: Normal. No masses. Gallbladder/Bile Ducts: Unremarkable. Spleen: Normal. Pancreas: Normal. Adrenal Glands: Normal. Kidneys: No hydronephrosis. Few small nonspecific low densities seen in the left kidney. Left mid med ial renal cyst with onset units of 17, measures 1.7 cm on the coronal reconstructions. Mild motion ar tifact. Peritoneal Cavity/Bowel: Moderate hiatal hernia. Normal appendix. Couple diverticula at the descendin g colon sigmoid colon junction. No evidence for diverticulitis. No evidence for bowel obstruction or bowel wall thickening. No free fluid or free air. Pelvic Organs: A few subserosal uterine fibroids, one of the largest is seen at the left posterior as pect measuring 1.7 cm. A couple of these fibroids are calcified. The uterus is anteverted. Normal ova amanda. Unremarkable bladder. Vasculature: No acute findings. The superior mesenteric artery appears patent Bones: No acute bone findings Other: None. IMPRESSION: 1. Moderate hiatal hernia. 2. A couple of diverticula at the descending colon sigmoid colon junction. No evidence for acute dive rticulitis. No acute bowel findings are seen. Normal appendix. 3. A few subserosal uterine fibroids. [facility] Referring Provider Line: [phone] SITE ID: [id number]
[2016-12-11] MEDS: SODIUM/POTASSIUM/MAG SULFATES 354 ML PREP KIT PO SCH (20:42)
--- NOTE | 2016-12-11 20:45 | HISTORY & PHYSICAL EXAMINATION ---
DATE OF ADMISSION: 12/05/2016 REASON FOR CONSULTATION: I am called in consultation by Dr. Andres Ware to evaluate this very pleasan t 56-year-old female for a gastrointestinal source of bleeding. HISTORY OF PRESENT ILLNESS: Long story short, the patient had orthopedic surgery. The patient had a r ight total knee arthroplasty on 12/05/2016 and, long story short, subsequent to this, she had progres sive and ongoing anemia requiring blood transfusion. Whereas initially it was thought to be related t o the orthopedic procedure, when it continued and the patient developed some abdominal pain, there wa s some question as to whether or not there was an abdominal source to her blood. I am being asked to perform an EGD, as she is having melena. The patient has not had any previous evaluation of upper esophagus, stomach, duodenum or a colonoscop y. She has not had similar symptoms in the past. ALLERGIES: NONE. MEDICATIONS 1. Calcium carbonate. 2. Vitamin D. 3. Glucosamine. 4. Oxycodone 10 mg t.i.d. 5. Senna and Colace. 6. Topamax. The patient has also been given Lovenox while she is in the hospital, as well as ibuprofen. PAST MEDICAL AND SURGICAL HISTORY 1. Chronic neck and spine pain. 2. Hypothyroidism. 3. Osteoarthritis. 4. Peripheral neuropathy. 5. Thyroid goiters. 6. Cervical sprain. 7. Vitamin D deficiency. 8. Multiple surgeries for her spine and back pain. 9. Most recently, right knee surgery. FAMILY HISTORY: Significant for spinal stenosis, Parkinson's, diabetes, trigeminal neuralgia. SOCIAL HISTORY: Some rare alcohol. She denies tobacco use. She denies recreational drug use. REVIEW OF SYSTEMS CONSTITUTIONAL: There has been no unexpected or unwarranted weight loss. No fever or chills. HEENT: She has had no improvement or decrease in her hearing or vision. NECK: She has no difficulty swallowing nor speaking. CHEST: She has no chest pain or pressure. RESPIRATORY: She is not short of breath and does not have productive cough. GASTROINTESTINAL: Please see above. MUSCULOSKELETAL: Numerous complaints. GENITOURINARY: No dysuria. PHYSICAL EXAMINATION GENERAL: The patient was examined in room 20 at [facility]'s Med/Surg unit. She is alert and oriented to person, place and time. Her mood and affect are appropriate. She asks and answ ers questions well. VITAL SIGNS: Please refer to nurse's note. HEENT: She is normocephalic, atraumatic. Sclerae are noninjected, nonicteric. Her mucous membranes ar e pink and slightly dry. NECK: Supple without mass or bruits. HEART: Regular rate and rhythm without rub, murmur or gallop. LUNGS: Clear to auscultation bilaterally anterolaterally. ABDOMEN: Some mild tenderness, which is not truly locatable. She has no peritoneal findings. RECTAL: Deferred. DRIVER EXAMINER: Deferred. MUSCULOSKELETAL: She has no clubbing, cyanosis, or edema. GAIT: Not evaluated. PSYCH: Her mood and affect appear appropriate. She asks and answers questions well. ASSESSMENT: Melena with ongoing blood loss. PLAN: Esophagogastroduodenoscopy. The indications, procedure, alternatives and possible complications including but not limited to perforation requiring operative repair, bleeding with all of its risks including transfusion, and were fully explained to the patient and all questions were answered. Her mother was in the room for this entire conversation. Conscious sedation was discussed with the p atient and the patient indicated that this would be appropriate. Lastly, I have asked her to let us k now if there is any way we can make her stay here at [facility] more comfortable to please let us know, and she stated that she would. JOB #: [id number] EXT JOB #:[id number]
[2016-12-12] MEDS: HYDROmorphone 1 MG/ML SYRINGE IVP PRN ×3 (03:35→09:01)
[2016-12-12] MEDS: SODIUM CHLORIDE FLUSH 0.9% 10 ML SYRINGE IVP PRN (03:35)
[2016-12-12] MEDS: SODIUM CHLORIDE 0.9% 1,000 ML IV SCH ×3 (05:16→20:46)
[2016-12-12] MEDS: SODIUM CHLORIDE FLUSH 0.9% 10 ML SYRINGE IVP SCH ×3 (05:17→20:53)
[2016-12-12] MEDS: SUCRALFATE 1 GM/10 ML UDC PO SCH ×4 (05:18→22:05)
[2016-12-12] MEDS: GABAPENTIN 100 MG CAPSULE PO SCH ×3 (05:18→20:47)
[2016-12-12] MEDS: PANTOPRAZOLE 40 MG TABLET PO SCH ×2 (05:18→17:33)
[2016-12-12] MEDS: SODIUM/POTASSIUM/MAG SULFATES 354 ML PREP KIT PO SCH (06:50)
[2016-12-12] MEDS: ONDANSETRON 4 MG/2 ML VIAL IVP PRN (06:50)
[2016-12-12] MEDS: PROCHLORPERAZINE 10 MG/2 ML VIAL IVP PRN (09:18)
--- NOTE | 2016-12-12 10:56 | PROVIDER PROGRESS NOTE ---
Assessment/Plan - Problem List (1) Status post total right knee replacement Assessment/Plan: Recovering well. Pain controlled. Mobilizing with physical therapy. Pt will need further rehab after discharge with plan for SNF initially but goal are to return home. (2) Obesity (BMI 30.0-34.9) Assessment/Plan: Continued efforts at wt loss (3) Chronic pain Assessment/Plan: Appears to be well controlled at this time. No changes to medications. Will avoid up titration of pain medications (4) Postoperative anemia Assessment/Plan: Extent complicated by GI blood loss. ecchymosis of posterior surface RLE appears to be stable to improved. (5) GI bleed Assessment/Plan: EGD 12/11/16 was negative for source of blood loss. Occult study was positive. Plan for colonoscopy today. Prep started over night. Will continue PPI - Current Meds Current Meds: Current Medications Generic Name Dose Route Start Last Admin Trade Name Freq PRN Reason Stop Dose Admin Acetaminophen 650 - 975 mg 12/05/16 11:48 12/11/16 17:20 Tylenol PO 975 mg Q4HR PRN Administration PAIN Calcium Carbonate/Glycine 1,500 mg 12/06/16 09:00 12/11/16 09:03 Tums PO Not Given DAILY DIOR Cholecalciferol 5,000 unit 12/06/16 09:00 12/11/16 09:03 Vitamin D3 PO Not Given DAILY DIOR Diphenhydramine HCl 25 mg 12/06/16 16:01 12/07/16 00:22 Benadryl Inj IVP 25 mg Q6H PRN Administration Allergy Symptoms Docusate Sodium 250 - 500 mg 12/06/16 09:00 12/11/16 09:05 Colace 250mg Capsule PO Not Given DAILY DIOR Ferrous Sulfate 325 mg 12/10/16 17:00 12/11/16 17:20 Feosol PO 325 mg BIDWM DIOR Administration Folic Acid 1 mg 12/06/16 09:00 12/11/16 09:05 PO Not Given DAILY DIOR Gabapentin 100 mg 12/06/16 12:30 12/12/16 05:18 Neurontin PO Not Given TID DIOR Hydromorphone HCl 1 mg 12/11/16 20:36 12/12/16 09:01 Dilaudid Inj IVP 1 mg Q2HR PRN Administration PAIN Sodium Chloride 1,000 mls @ 125 mls/hr 12/12/16 05:00 12/12/16 05:16 Normal Saline 0.9% IV 125 mls/hr .Q8H DIOR Administration Ondansetron HCl 4 mg 12/05/16 11:48 12/12/16 06:50 Zofran Inj IVP 4 mg Q6HR PRN Administration Nausea / Vomiting Oxycodone HCl 10 mg 12/06/16 15:36 12/11/16 19:12 Roxicodone PO 10 mg TID PRN Administration PAIN Pantoprazole Sodium 40 mg 12/10/16 16:00 12/12/16 05:18 Protonix PO Not Given BIDAC DIOR Prochlorperazine Edisylate 10 mg 12/05/16 11:48 12/12/16 09:18 Compazine Inj IVP 10 mg Q6HR PRN Administration Nausea / Vomiting Senna 8.6 - 17.2 mg 12/06/16 09:00 12/11/16 09:05 Senokot PO Not Given DAILY DIOR Sodium Chloride 10 ml 12/05/16 11:48 12/12/16 03:35 Normal Saline Flush 0.9% IVP 10 ml PRN PRN Administration NEEDED PER PROVIDER ORDERS Sodium Chloride 10 ml 12/05/16 14:00 12/12/16 05:17 Normal Saline Flush 0.9% IVP 10 ml Q8HR DIOR Administration Sucralfate 1 gm 12/10/16 16:00 12/12/16 05:18 Carafate PO Not Given 0700,1100,1600,2200 DIOR Topiramate 100 mg 12/05/16 21:00 12/11/16 20:42 Topamax PO 100 mg BID DIOR Administration Tramadol HCl 50 mg 12/06/16 12:02 12/11/16 20:42 Ultram PO 50 mg Q4HR PRN Administration PAIN - Lab Result Lab results reviewed: Yes Fish Bone Diagrams: 12/11/16 05:40 12/09/16 05:18 - Additional Planning Condition/Complexity: Stable Plan Discussed with:: Patient, Family Time Spent: 15-30 minutes Subjective - Subjective Patient Reports: Other (PT is feleing well today. Pain is mostly controlled. She has no questions regarding colonoscopy.) Nursing Reports: No Complaints Objective Vital Signs: Vital Signs - 24 hr 12/11/16 12/11/16 12/11/16 13:30 13:41 14:00 Temperature 36.4 C L 36.6 C 37.4 C Heart Rate [ 71 77 71 Brachial] Respiratory 16 16 16 Rate Blood Pressure [Left Brachial artery] Blood Pressure 94/58 L 101/63 94/65 [Right Brachial artery] O2 Saturation 97 96 94 12/11/16 12/11/16 12/11/16 15:00 16:00 20:30 Temperature 37.1 C 37.7 C H 37.2 C Heart Rate [ 88 81 82 Brachial] Respiratory 16 18 18 Rate Blood Pressure [Left Brachial artery] Blood Pressure 129/75 116/70 116/74 [Right Brachial artery] O2 Saturation 96 98 96 12/12/16 12/12/16 12/12/16 00:38 03:42 08:00 Temperature 37.1 C 37.1 C 36.9 C Heart Rate [ 83 73 70 Brachial] Respiratory 18 16 18 Rate Blood Pressure 124/70 [Left Brachial artery] Blood Pressure 132/75 H 117/74 [Right Brachial artery] O2 Saturation 97 95 97 Oxygen O2 Source Room air I&O (Last 24 Hrs): Intake and Output Totals x24h 12/10/16 12/11/16 12/12/16 23:59 23:59 23:59 Intake Total 1608 1426 195 Output Total 900 3500 300 Balance 708 -0732 -105 General: Alert, Oriented x3, Cooperative HEENT: Atraumatic, PERRLA, EOMI Neck: No JVD Neuro: Alert, CN 2-12 Grossly Intact Cardiovascular: Regular rate, Other (2/6 [facility]) Respiratory: No respiratory distress, Breath sounds nml Abdomen: Normal bowel sounds, Soft Extremities: Normal pulses, Other (RLE edema present with posterior ecchymosis) Skin: No rashes - Results Results: Laboratory Results WBC 6.6 x10^3/uL (4.8-10.8) 12/11/16 05:40 RBC 2.71 10^6/uL (4.20-5.40) L 12/11/16 05:40 Hgb 8.4 g/dL (12.0-16.0) L 12/11/16 05:40 Hct 25.2 % (37.0-47.0) L 12/11/16 05:40 MCV 93.0 fL (81.0-99.0) 12/11/16 05:40 MCH 31.2 pg (27.0-31.0) H 12/11/16 05:40 MCHC 33.6 g/dL (32.0-36.0) 12/11/16 05:40 RDW 13.6 % (12.0-15.0) 12/11/16 05:40 Plt Count 252 10^3/uL (130-450) 12/11/16 05:40 MPV 6.5 fL (7.9-10.8) L 12/11/16 05:40 Neut # 6.4 10^3/uL (1.5-6.6) 12/10/16 05:10 Lymph # 1.3 10^3/uL (1.5-3.5) L 12/10/16 05:10 [place] # 0.5 10^3/uL (0.0-1.0) 12/10/16 05:10 Eos # 0.1 10^3/uL (0.0-0.7) 12/10/16 05:10 Baso # 0.0 10^3/uL (0.0-0.1) 12/10/16 05:10 Absolute Nucleated RBC 0.00 x10^3/uL 12/10/16 05:10 Nucleated RBCs 0.0 /100WBC 12/10/16 05:10 Sodium 143 mmol/L (135-145) 12/09/16 05:18 Potassium 4.3 mmol/L (3.5-5.0) 12/09/16 05:18 Chloride 113 mmol/L (101-111) H 12/09/16 05:18 Carbon Dioxide 25 mmol/L (21-32) 12/09/16 05:18 Anion Gap 5.0 (6-13) L 12/09/16 05:18 BUN 19 mg/dL (6-20) 12/09/16 05:18 Creatinine 0.7 mg/dL (0.4-1.0) 12/09/16 05:18 Estimated GFR (MDRD) 87 (>89) L 12/09/16 05:18 Glucose 106 mg/dL (70-100) H 12/09/16 05:18 POC Whole Bld Glucose 102 mg/dL (70 - 100) H 12/11/16 11:31 Calcium 8.4 mg/dL (8.5-10.3) L 12/09/16 05:18 Phosphorus 3.2 mg/dL (2.5-4.6) 12/06/16 16:10 Magnesium 1.8 mg/dL (1.7-2.8) 12/06/16 16:10 Total Bilirubin 0.3 mg/dL (0.2-1.0) 12/07/16 05:19 AST 12 IU/L (10-42) 12/07/16 05:19 ALT 12 IU/L (10-60) 12/07/16 05:19 Alkaline Phosphatase 48 IU/L (42-121) 12/07/16 05:19 Total Protein 4.8 g/dL (6.7-8.2) L 12/07/16 05:19 Albumin 2.7 g/dL (3.2-5.5) L 12/07/16 05:19 Globulin 2.0 g/dL (2.1-4.2) L 12/07/16 05:19 Albumin/Globulin Ratio 1.3 (1.0-2.2) 12/07/16 05:19 Vitamin B12 284 pg/mL (180-914) 12/06/16 16:10 25-OH Vitamin D Total 46 ng/mL (30-100) 12/06/16 16:10 25-Hydroxy Vitamin D2 <4 ng/mL (See Below) 12/06/16 16:10 25-Hydroxy Vitamin D3 46 ng/mL (See Below) 12/06/16 16:10 Urine Color YELLOW 12/11/16 00:50 Urine Clarity CLEAR (CLEAR) 12/11/16 00:50 Urine pH 7.0 PH (5.0-7.5) 12/11/16 00:50 Ur Specific [place] 1.010 (1.002-1.030) 12/11/16 00:50 Urine Protein NEGATIVE mg/dL (NEGATIVE) 12/11/16 00:50 Urine Glucose (UA) NEGATIVE mg/dL (NEGATIVE) 12/11/16 00:50 Urine Ketones NEGATIVE mg/dL (NEGATIVE) 12/11/16 00:50 Urine Occult Blood NEGATIVE (NEGATIVE) 12/11/16 00:50 Urine Nitrite NEGATIVE (NEGATIVE) 12/11/16 00:50 Urine Bilirubin NEGATIVE (NEGATIVE) 12/11/16 00:50 Urine Urobilinogen 0.2 (NORMAL) E.U./dL (NORMAL) 12/11/16 00:50 Ur Leukocyte Esterase NEGATIVE (NEGATIVE) 12/11/16 00:50 Urine RBC 0-5 /HPF (0-5) 12/08/16 05:50 Urine WBC 0-3 /HPF (0-5) 12/08/16 05:50 Ur Squamous Epith Cells MOD Squamous (<= Few) H 12/08/16 05:50 Urine Bacteria Few /HPF (None Seen) 12/08/16 05:50 Ur Microscopic Review NOT INDICATED 12/11/16 00:50 Urine Culture Comments NOT INDICATED 12/08/16 05:50 Urine HCG, Qual NEGATIVE 12/05/16 06:30 Blood Type O POSITIVE 12/09/16 09:35 Blood Type Recheck O POSITIVE 12/09/16 05:18 Antibody Screen NEGATIVE 12/09/16 09:35 Crossmatch IS Only See Detail 12/09/16 09:35
[2016-12-12] MEDS ORDERED: SODIUM CHLORIDE 0.9% 1,000 ML IV ONE (15:07)
[2016-12-12] MEDS ORDERED: MIDAZOLAM 2 MG/2 ML VIAL IVP ONE (16:00)
[2016-12-12] MEDS ORDERED: fentaNYL 100 MCG/2 ML VIAL IVP ONE (16:00)
[2016-12-12] MEDS: TOPIRAMATE 100 MG TABLET PO SCH ×2 (17:27→20:47)
[2016-12-12] MEDS: FERROUS SULFATE 325 MG TABLET PO SCH ×2 (17:27→17:33)
[2016-12-12] MEDS: DOCUSATE SODIUM 250 MG CAPSULE PO SCH (17:27)
[2016-12-12] MEDS: SENNA 8.6 MG TABLET PO SCH (17:27)
[2016-12-12] MEDS: CALCIUM CARBONATE CHEW 500 MG TABLET PO SCH (17:33)
[2016-12-12] MEDS: CHOLECALCIFEROL 5,000 UNIT CAPSULE PO SCH (17:33)
[2016-12-12] MEDS: FOLIC ACID 1 MG TABLET PO SCH (17:33)
[2016-12-12] MEDS: metroNIDAZOLE 250 MG TABLET PO SCH ×2 (17:38→23:44)
[2016-12-12] MEDS: oxyCODONE 5 MG TABLET PO PRN (18:16)
[2016-12-12] MEDS: ACETAMINOPHEN 325 MG TABLET PO PRN (22:05)
[2016-12-12] MEDS: traMADol 50 MG TABLET PO PRN (23:44)
[2016-12-13] MEDS: oxyCODONE 5 MG TABLET PO PRN ×3 (03:56→23:54)
[2016-12-13] MEDS: GABAPENTIN 100 MG CAPSULE PO SCH (05:02)
[2016-12-13] MEDS: SODIUM CHLORIDE 0.9% 1,000 ML IV SCH (05:02)
[2016-12-13] MEDS: SODIUM CHLORIDE FLUSH 0.9% 10 ML SYRINGE IVP SCH ×3 (05:03→20:25)
[2016-12-13] MEDS: metroNIDAZOLE 250 MG TABLET PO SCH (05:03)
[2016-12-13 05:34] LABS: HCT - HEMATOCRIT 26.1 % (37.0-47.0); HGB - HEMOGLOBIN 8.6 g/dL (12.0-16.0); MEAN CORPUSCULAR HEMOGLOBIN 31.1 pg (27.0-31.0); MEAN CORPUSCULAR HGB CONC 33.2 g/dL (32.0-36.0); MEAN CORPUSCULAR VOLUME 93.7 fL (81.0-99.0); MEAN PLATELET VOLUME 6.5 fL (7.9-10.8); RED BLOOD COUNT 2.79 10^6/uL (4.20-5.40); RED CELL DISTRIBUTION WIDTH 13.6 % (12.0-15.0)
[2016-12-13 05:48] LABS: BILIRUBIN,TOTAL 0.7 mg/dL (0.2-1.0); CALCIUM 8.8 mg/dL (8.5-10.3); CREATININE 0.5 mg/dL (0.4-1.0); POTASSIUM 3.6 mmol/L (3.5-5.0); TOTAL PROTEIN 5.6 g/dL (6.7-8.2)
[2016-12-13] MEDS: SUCRALFATE 1 GM/10 ML UDC PO SCH (06:29)
[2016-12-13] MEDS: PANTOPRAZOLE 40 MG TABLET PO SCH (06:29)
[2016-12-13] MEDS: traMADol 50 MG TABLET PO PRN ×2 (08:07→20:12)
[2016-12-13] MEDS: SENNA 8.6 MG TABLET PO SCH (08:59)
[2016-12-13] MEDS: DOCUSATE SODIUM 250 MG CAPSULE PO SCH (08:59)
[2016-12-13] MEDS: ONDANSETRON 4 MG/2 ML VIAL IVP PRN (09:21)
[2016-12-13] MEDS: TOPIRAMATE 100 MG TABLET PO SCH ×2 (09:59→20:24)
[2016-12-13] MEDS: CHOLECALCIFEROL 5,000 UNIT CAPSULE PO SCH (09:59)
[2016-12-13] MEDS: FOLIC ACID 1 MG TABLET PO SCH (09:59)
[2016-12-13] MEDS: FERROUS SULFATE 325 MG TABLET PO SCH ×2 (09:59→17:29)
[2016-12-13] MEDS: CALCIUM CARBONATE CHEW 500 MG TABLET PO SCH (10:00)
--- NOTE | 2016-12-13 14:57 | PROVIDER PROGRESS NOTE ---
Subjective - Prog Note Date Prog Note Date: 12/13/16 Prog Note Time: 14:26 (late entry, seen ~ 8a, again 2:30pm) - Subjective Subjective: feels nauseated today, also stomach bothering her, no appetite moving a little better w/ PT aware pathology result not back yet Current Medications - Current Medications Current Medications: Active Medications Generic Name Dose Route Start Last Admin Trade Name Freq PRN Reason Stop Dose Admin Acetaminophen 650 - 975 mg 12/05/16 11:48 12/12/16 22:05 Tylenol PO 650 mg Q4HR PRN Administration PAIN Calcium Carbonate/Glycine 1,500 mg 12/06/16 09:00 12/13/16 10:00 Tums PO 1,500 mg DAILY DIOR Administration Cholecalciferol 5,000 unit 12/06/16 09:00 12/13/16 09:59 Vitamin D3 PO 5,000 unit DAILY DIOR Administration Diphenhydramine HCl 25 mg 12/06/16 16:01 12/07/16 00:22 Benadryl Inj IVP 25 mg Q6H PRN Administration Allergy Symptoms Docusate Sodium 250 - 500 mg 12/06/16 09:00 12/13/16 08:59 Colace 250mg Capsule PO Not Given DAILY [facility] Ferrous Sulfate 325 mg 12/10/16 17:00 12/13/16 17:29 Feosol PO 325 mg BIDWM DIOR Administration Folic Acid 1 mg 12/06/16 09:00 12/13/16 09:59 PO 1 mg DAILY DIOR Administration Hydromorphone HCl 1 mg 12/11/16 20:36 12/12/16 09:01 Dilaudid Inj IVP 1 mg Q2HR PRN Administration PAIN Oxycodone HCl 10 mg 12/06/16 15:36 12/13/16 15:51 Roxicodone PO 10 mg TID PRN Administration PAIN Prochlorperazine Edisylate 10 mg 12/05/16 11:48 12/13/16 15:51 Compazine Inj IVP 10 mg Q6HR PRN Administration Nausea / Vomiting Senna 8.6 - 17.2 mg 12/05/16 18:57 Senokot PO DAILY PRN Constipation Senna 8.6 - 17.2 mg 12/06/16 09:00 12/13/16 08:59 Senokot PO Not Given DAILY DIOR Sodium Chloride 10 ml 12/05/16 11:48 12/12/16 03:35 Normal Saline Flush 0.9% IVP 10 ml PRN PRN Administration NEEDED PER PROVIDER ORDERS Sodium Chloride 10 ml 12/05/16 14:00 12/13/16 20:25 Normal Saline Flush 0.9% IVP 10 ml Q8HR DIOR Administration Topiramate 100 mg 12/05/16 21:00 12/13/16 20:24 Topamax PO 100 mg BID DIOR Administration Tramadol HCl 50 mg 12/06/16 12:02 12/13/16 20:12 Ultram PO 50 mg Q4HR PRN Administration PAIN Calcium Carbonate/Vitamin D3 [Calcium 600 + Vit D 400 Tablet] 1 each PO DAILY Glucosam/Chondr-MSM#6/Manganes [Glucosamine-Chondroitin Sftgl] 1 each PO DAILY 11/23/16 Sennosides/Docusate Sodium [Stool Softener-Stimulant Lax] 1 each PO DAILY Vitamin D3/Folic Acid [Folixapure Tablet] 5,000 unit PO DAILY 11/23/16 Topiramate [Topamax] 100 mg PO BID 12/05/16 oxyCODONE [Roxicodone] 10 mg PO TID PRN 12/05/16 Objective - Vital Signs/Intake & Output Reviewed Vital Signs: Yes Vital Signs: Vital Signs x48h Temp Pulse Resp BP BP Pulse Ox 12/13/16 12:23 36.8 C 64 16 135/80 H 98 12/13/16 10:55 36.7 C 12/13/16 08:37 36.8 C 73 18 123/75 94 Intake & Output: Intake & Output 12/10/16 12/11/16 12/12/16 12/13/16 23:59 23:59 23:59 23:59 Intake Total 1608 1426 1887 2448 Output Total 900 3500 650 400 Balance 850 -2089 1233 1 - Objective General Appearance: positive: Other (lyiing in bed, NAD, chatting on phone , mother visiting) Respiratory: positive: Chest non-tender, No respiratory distress, Breath sounds nml Cardiovascular: positive: No murmur Abdomen: positive: Nml bowel sounds, No distention, Other (uncomfortable "stomach" pain , after eating, loose BM in commode viewed by me, not melena, no micheal blood) Skin: positive: Warm, Dry Extremities: positive: Other (plexipulses on Bilat no significant edema R knee with clean dressing) - Lab Results Fish Bones: 12/13/16 05:14 12/13/16 05:14 Other Labs: Lab Results x24hrs 12/13/16 12/13/16 Range/Units 05:14 05:14 WBC 7.0 (4.8-10.8) x10^3/uL RBC 2.79 L (4.20-5.40) 10^6/uL Hgb 8.6 L (12.0-16.0) g/dL Hct 26.1 L (37.0-47.0) % MCV 93.7 (81.0-99.0) fL MCH 31.1 H (27.0-31.0) pg MCHC 33.2 (32.0-36.0) g/dL RDW 13.6 (12.0-15.0) % Plt Count 280 (130-450) 10^3/uL MPV 6.5 L (7.9-10.8) fL Sodium 140 (135-145) mmol/L Potassium 3.6 (3.5-5.0) mmol/L Chloride 111 (101-111) mmol/L Carbon Dioxide 23 (21-32) mmol/L Anion Gap 6.0 (6-13) BUN 8 (6-20) mg/dL Creatinine 0.5 (0.4-1.0) mg/dL Estimated GFR (MDRD) 128 (>89) Glucose 96 (70-100) mg/dL Calcium 8.8 (8.5-10.3) mg/dL Total Bilirubin 0.7 (0.2-1.0) mg/dL AST 52 H (10-42) IU/L ALT 106 H (10-60) IU/L Alkaline Phosphatase 56 (42-121) IU/L Total Protein 5.6 L (6.7-8.2) g/dL Albumin 2.8 L (3.2-5.5) g/dL Globulin 2.8 (2.1-4.2) g/dL Albumin/Globulin Ratio 1.0 (1.0-2.2) Assessment/Plan - Problem List (1) Status post total right knee replacement Impression: (1) GI bleed (in setting of lovenox) with ileocecal valve shallow ulcerations Assessment/Plan: On colonoscopy; ulcerations, pseudomanes on scope; Cdif initially suspected BUT Cdif negative, pathology pending Hgb/hct stable (s/p 2 units) Stop flagyl, PCP will need to f/u on pathology result (unless results by tomorrow) May need GI consultation as outpateint Not tolerating PO todayt; suspect due to oral iron will stop oral iron (did get 2 units PRBC's which is good iron load) (2)Status post total right knee replacement Assessment/Plan: Day 8 post op mobility slowly improving/ WBAT per Dr. Ware VTE prophylaxis ; plexipulses (lovenox stopped due to problem #2 (see below) plan for d/c to [facility] SNF 3) Headache suspect related to zofran d/c zofran, reeval off zofran (5) Chronic pain Assessment/Plan: patient reports acute and chrnic pain controlled; gabapentin started on admit, pt wishes to be only on her prior home meds (topomax, prn oxycodone 10 tid, and Appears to be well controlled at this time. No changes to medications. Will avoid up titration of pain medications (4)ANemia/normocytic' present on admssion Assessment/Plan: only 50cc EBL intraoperative no iron studies sent this admission/ possilbe early EDUARDO or ACD if inflammatory inflammation iron seems to be causing GI upset; as above did get iron load w/ 2 units / will decrease to daily if not tolerating bid advised to take w/ food (5) Obesity (BMI 30.0-34.9) Assessment/Plan: Continued efforts at wt loss
[2016-12-13] MEDS: PROCHLORPERAZINE 10 MG/2 ML VIAL IVP PRN (15:51)
[2016-12-13] MEDS: diphenhydrAMINE INJ 50 MG/ML VIAL IVP PRN (23:54)
[2016-12-13] MEDS: SODIUM CHLORIDE FLUSH 0.9% 10 ML SYRINGE IVP PRN (23:54)
[2016-12-14] MEDS: traMADol 50 MG TABLET PO PRN (04:53)
[2016-12-14] MEDS: SODIUM CHLORIDE FLUSH 0.9% 10 ML SYRINGE IVP SCH ×2 (06:48→13:42)
[2016-12-14] MEDS: CALCIUM CARBONATE CHEW 500 MG TABLET PO SCH (08:16)
[2016-12-14] MEDS: DOCUSATE SODIUM 250 MG CAPSULE PO SCH (08:17)
[2016-12-14] MEDS: TOPIRAMATE 100 MG TABLET PO SCH (08:17)
[2016-12-14] MEDS: oxyCODONE 5 MG TABLET PO PRN ×3 (08:17→13:16)
[2016-12-14] MEDS: FOLIC ACID 1 MG TABLET PO SCH (08:17)
[2016-12-14] MEDS: SENNA 8.6 MG TABLET PO SCH (08:17)
[2016-12-14] MEDS: CHOLECALCIFEROL 5,000 UNIT CAPSULE PO SCH (08:17)
[2016-12-14 09:26] LABS: HCT - HEMATOCRIT 27.1 % (37.0-47.0); HGB - HEMOGLOBIN 9.2 g/dL (12.0-16.0); MEAN CORPUSCULAR VOLUME 91.4 fL (81.0-99.0); MEAN PLATELET VOLUME 6.4 fL (7.9-10.8); RED BLOOD COUNT 2.96 10^6/uL (4.20-5.40); RED CELL DISTRIBUTION WIDTH 13.7 % (12.0-15.0); WHITE BLOOD COUNT 8.6 x10^3/uL (4.8-10.8)
[2016-12-14 14:11] VITALS: BP 107/67
--- NOTE | 2016-12-15 16:02 | DISCHARGE SUMMARY ---
DATE OF ADMISSION: 12/05/2016 DATE OF DISCHARGE: 12/14/2016 PRIMARY CARE PROVIDER: Dr. Jara. Destination of discharge: [facility]. PRIMARY DISCHARGE DIAGNOSES: 1. Right total knee replacement. 2. Lower gastrointestinal bleed. 3. Ulcerations and pseudomembranes in the ileocecal valve area, ascending, descending and sigmoid colon, sparing the transverse colon and rectum on colonoscopy. 4. Hiatal hernia noted on endoscopy. 5. Anemia. 6. Chronic pain. CONSULTATIONS: Hospitalist service was consulted for medical management and Dr. Kirk, General Surgery, was consulted for an endoscopy and colonoscopy when a GI bleed developed. PROCEDURES: 1. Right total knee arthroplasty on 12/05/2016. 2. An endoscopy was done by Dr. Kirk on 12/11/2016. 3. Colonoscopy was done 12/12/[address] Kirk. 4. Two units of packed red blood cell transfusion. Pathology results of an ileocecal valve biopsy from the 12/12/2016 colonoscopy: 1. Pedunculated fragments of inflamed granulation tissue. 2. Negative for dysplasia or carcinoma. Comment on the pedunculated fragments: The findings are histologically nonspecific but could represent sampling of an ulcer bed or pseudopolyp in the setting of diverticular disease. No cytologic atypia or carcinoma identified. DIAGNOSTIC IMAGING STUDIES 1. Knee x-ray 12/05/2016. Postoperative changes of her right knee replacement. 2. Chest x-ray 12/08/2016. Moderate hiatal hernia, no evidence of acute cardiopulmonary disease. 3. Venous duplex of the right leg 12/08/2016. No evidence of deep venous thrombosis. 4. Plain film of the abdomen 12/10/2016. Normal gas pattern, no bowel obstruction. 5. Abdominal and pelvis CT done 12/11/2016: a. Moderate hiatal hernia. b. Normal appendix, diverticula at the descending colon-sigmoid colon junction, no evidence for diverticulitis, no evidence for bowel obstruction or bowel wall thickening. c. A few serosal uterine fibroids. DIAGNOSTIC LABORATORY STUDIES ON DISCHARGE: Sodium 140, potassium 3.6, chloride 111, bicarbonate 23, BUN 8, creatinine 0.5, glucose 128. Total bilirubin 0.7, AST 52, ALT 106. On admission AST and ALT were 12 and 12, respectively. CBC on admission: White count 8.3, hemoglobin 9.5, hematocrit 28.2, platelets 172,000. Her hemoglobin and hematocrit on 12/09/2016, 4 days postop, were 7.1 and 21.6. On discharge, which reflects 2 units of packed red cells, hemoglobin 9.2 and hematocrit 27.1. BRIEF HOSPITAL COURSE BY PROBLEMS 1. Total knee arthroplasty. The patient is a 56-year-old female who was admitted for an elective right total knee arthroplasty by Dr. Andres Ware. Please see his dictation for full report of this. She had an unremarkable total right knee arthroplasty on 12/05/2016, with an unremarkable intraoperative course, with 50 mL of blood loss. She did have some pain management issues in the initial perioperative period, as she does have underlying chronic pain. 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 She is not on a long-acting opiate at home. Gabapentin was added as well (but stopped by the time of discharge). Over the several days postoperative her pain continued to improve and by the time of discharge she was managed very well on her home medications and able to be working with PT on her home medication of oxycodone 10 mg 3 times daily as needed for pain, and continued topiramate and p.r.n. Ultram (new). She was evaluated by Physical Therapy, who recommended transfer to a [facility] facility, and she was discharged to [facility] on 12/14/2016. Dr. Andres Ware recommend followup in the orthopedic clinic in 2 weeks. She is unable to have ongoing VTE prophylaxis due to development of a GI bleed in the postoperative period (please see #2). 2. Gastrointestinal bleed. As noted in the operative period, she only had 50 mL EBL during surgery. Three days after surgery on 12/09/2016, her hemoglobin and hematocrit were 10.1 and 21.6 and she had corresponding black stools. She did not have any significant hemodynamic instability, although her systolic blood pressure was just a little under 100 even the initial day after surgery, which may have also been anesthesia-related. She did have to 2 units of packed red cells and underwent colonoscopy to evaluate source of bleed, as well as endoscopy. I do not have the endoscopy report itself, but according to Dr. Kirk's report to her, that is notable only for a large hiatal hernia. The colonoscopy was notable as above for ulcerations and pseudomembranes affecting the ileocecal valve, ascending, descending, and sigmoid colon, with sparing of the transverse colon and rectum. Cultures were taken of this and they said no growth. RUBY test negative for H pylori. PCR for C difficile was negative. Colong pathology resulted as above with nonspecific histologic findings possibly representing diverticular disease. Dr. Kirk recommended return in 6 weeks for a repeat colonoscopy. As above, her hemoglobin and hematocrit are stable at the time of discharge. She was started on iron tablets, which seemed to aggravate, cause some dyspepsia, although she did get a bit of an iron load with the 2 units of packed red cells and I am reducing the iron tablet to 1 time daily with meal. Recommend recheck a hemoglobin and hematocrit sometime next week to ensure it is stable. 3. Chronic pain. As noted above, her pain at the time of discharge allowed her to go back on her home medications with the addition of p.r.n. Ultram, which can probably be discontinued once she leaves the [facility] facility. 4. Headache. On 12/13/2016, patient complained of a significant headache that was also interfering with her appetite. This was suspected most likely due to the Zofran. The Zofran was discontinued and her headache was much improved. 5. Anemia. Likely a combination of acute blood loss, with the GI blood loss as well as possibly a small, previously undetected amount of blood loss from the lesions near the ileocecal valve. As noted, she received 2 units packed red blood cells with a post count at time of discharge of 9.2 and 27.1. Recommend repeat in approximately 1 week to ensure stability and continue her iron. The precipitant of the active bleed appears to have been the Lovenox for VTE prophylaxis, and the Lovenox was discontinued. 6. Mild transaminitis. Her admission AST and ALT were 12 and 12, respectively, and there was a modest elevation after surgery, which may have been anesthesia related, to 52 and 106. I recommend repeat these along with her hemoglobin and hematocrit next week to ensure that they have returned to baseline. DISCHARGE MEDICATIONS 1. Topiramate 100 mg twice daily for chronic pain. 2. Tramadol 50 mg every 4 hours if needed for pain. 3. Senna 1 to 2 tablets twice daily for constipation. 4. Oxycodone 10 mg orally 3 times daily for pain. 5. Folixapure 5000 mg once daily, which is a joint tablet of Vitamin D3 and folic acid. 6. Calcium carbonate/vitamin D3 600+400. 7. Tylenol 650 mg 1-2 every 4 hours as needed for pain, maximum 4 grams a day. 8. Glucosamine chondroitin MSM softgel 1 daily. 9. Ferrous sulfate 325 mg once daily. Patient is to take this with food. FOLLOWUP: Patient is to follow up in the orthopedic clinic with Dr. Ware following the right total knee arthroplasty in approximately 2 weeks. She should be set up for a repeat colonoscopy with Dr. Kirk in 6 weeks, repeat hemoglobin and hematocrit and AST/ALT in approximately 1 week to ensure stability. Avoid aspirin and Lovenox and other anticoagulant or antiplatelet. PHYSICAL EXAMINATION ON THE DAY OF DISCHARGE VITAL SIGNS: Afebrile 37.0, heart rate 69, blood pressure 107 to 120 over 64 to 67, respiratory rate 16, 97% oxygenation on room air. GENERAL: The patient is a very pleasant female lying in bed in no acute distress. She is smiling today, appears much more comfortable. Denies headache. Her mother is at bedside. HEAD, EARS, EYES, NOSE, AND THROAT: She is a normocephalic, atraumatic. Has anicteric sclerae. Oral mucosa is moist. CHEST: Clear to auscultation. HEART: Regular S1, S2, with a 2 to 3 over 6 systolic murmur, which I suspect is a flow murmur with the anemia. ABDOMEN: Modestly obese. Soft, nontender and nondistended. EXTREMITIES: Notable for minimal edema distal to the right knee surgical site and she has a clean large Band-Aid type dressing over the right knee. She still had Plexipulses on both feet in the morning. JOB #: [id number] EXT JOB #:[id number] [facility]ENTER[facility]sey
--- NOTE | 2017-01-25 03:23 | OPERATIVE REPORT ---
DATE OF SURGERY: 12/05/2016 00:00:00 PREOPERATIVE DIAGNOSIS: Right knee primary osteoarthritis. POSTOPERATIVE DIAGNOSIS: Right knee primary osteoarthritis. PROCEDURE: Right total knee arthroplasty. SURGEON: Ramesh Ware MD. ANESTHESIA: Dayami Walton MD. ANESTHESIA TECHNIQUE: General endotracheal tube and local. PATHOLOGY: Same. ESTIMATED BLOOD LOSS: 50 mL. TOURNIQUET: Right thigh at 275 mmHg x120 minutes without complications. FLUIDS: 1800 mL of Lactated Ringer's. IMPLANTS 1. Claudette Persona PS femoral component, right, size 7. 2. Persona natural fibula cemented platform, right, size F. 3. Vivacit-E highly cross linked polyethylene PS tibial insert, right 12 mm. 4. Vivacit-E highly cross linked polyethylene patella cemented, 35 x 9 mm. DISPOSITION: PACU, then Med/Surg. CONDITION AT END OF PROCEDURE: Stable. INDICATIONS: This is a 56-year-old female with a longstanding history of right knee pain and progress claudia symptoms and radiographic evidence of advanced osteoarthritis of her right knee. She has had prev ious injuries to ligamentous structures around the knee, which had resulted in significant valgus def ormity. Despite conservative management attempts with modification of activities, ambulatory aids, no n-steroidal anti-inflammatory medications and Tylenol for analgesics, injections, physical therapy, a nd a cane to the left hand, she had been bothered by progressively worsening symptoms and pain so sev ere that it was preventing her from sleeping at night. After extensive discussion with the patient, neris tovar agreed to proceed with right total knee arthroplasty. PROCEDURE IN DETAIL: After consent and identification, the patient was brought to the operating room and placed in the supine position on the operating table. After induction of a general endotracheal a nesthesia and appropriate monitoring, the right lower extremity was prepped and draped free in the [facility] sterile fashion for knee surgery. Tourniquet was placed on the proximal thigh. After sterile prep and drape, the Clay limb trivedi was placed on the operative field and clamped to the table and t he boot was attached to the right lower extremity over-wrapped with Coban. After an appropriate timeout was conducted, we exsanguinated the extremity with an Esmarch bandage an d inflated the tourniquet on the right thigh to 275 mmHg. We then mapped out a standard medium parapatellar incision with a midline long incision extending fro m the tibial tubercle proximally over the middle portion of the patella to the distal right thigh, a total distance of approximately 18 cm. Skin and subcutaneous tissue were divided with a 10 blade scal pel down to the retinaculum over the patella. Tissue was reflected away from the patella medially and laterally. We then used a 10 blade scalpel to make a standard median parapatellar approach through t he quadriceps tendon, the medial retinaculum, and medial to the patellar tendon inferior to the calderon la. The knee was everted and the leg was flexed to approximately 110 degrees. An osteotome and rongeur we re used to remove osteophytes from the distal femur. Current osteophyte was resected from the notch w ith the rongeur. We then used the drill to make a pilot manager hole in the distal femur. The intramedullary guide was then placed and the distal femoral guide was then fixed to the distal femur with pins. A 10 mm distal femoral cut was then made with a 3 degree angulation. The guide was then removed. The ante rior cutting guide was then affixed to the distal femur and an anterior cut was made. The combination cutting block was then affixed to the distal femur and used to make the anterior, posterior, and joseph mfer cuts. With the distal femur prepared, we placed the extramedullary guide over the tibia and used the stylus to determine the low point on the lateral compartment. We then made an approximate 12 mm cut with 2 mm on the low posterolateral corner of the lateral compartment. Soft tissue release was co mpleted with a Jarquin elevator. Tibial guide was then attached to the proximal tibia and used to make o ur notch cuts with our pilot manager hole. A femoral trial was then attached to the distal femur and then tac ked it into place. A 12 mm posterior stabilized trial was then inserted into the tibial tray. We test ed our flexion and extension gaps and noted them to be satisfactory. The everted patella was then fix ed with a clamp after caliper was used to measure a 23 mm depth to the patella. We then performed a 9 mm cut over the patella. A 35 mm trial was placed over the patella and we drilled the 3 lug holes in the patella. Lug holes were then drilled in the distal femur. All trials were then removed and the knee was thoroughly irrigated with sterile saline intact with dr y lap sponges. We prepared 2 batches of Palacos cement on the back table and when they had doughy con sistency, we coated the backs of the tibial tray and the femoral component and the patella component with the Palacos cement. We inserted and impacted the tibial component and carefully removed excess c ement with freer elevator and tonsil forceps. We then impacted the femoral component onto the distal femur and carefully removed cement. The patellar clamp was used to clamp the 35 x 9 mm patellar compo nent onto the patella. With all components in place, we extended the knee and placed the foot on the Solis stand to keep the knee in full extension while the cement cured. When the cement had hardened, w e inspected the knee to remove any remaining fragments of cement. We then irrigated the knee thorough ly with sterile saline. We then injected our 60 mL cocktail of Duramorph, Toradol, epinephrine, and s peg. Sequential closer was then affected with a #5 Ethibond running interlocked suture to the media n parapatellar retinaculum incision. After further irrigation, interrupted 2-0 Vicryl sutures were us ed to repair the subcuticular layer. A running 3-0 Monocryl suture was then used to repair the dermal layer. We then injected a total of 30 mL of 0.5% Marcaine with epinephrine along the incision line. A Mepilex silver dressing was then placed over the anterior wound. The extremity was then removed fro m the Clay boot and a 6-inch bandage from the proximal thigh to the mid calf and a 4-inch Jovanni ban dage from the calf to the foot were then applied to the lower extremity. The tourniquet was deflated without complication. The patient was then extubated and transferred to the recovery room in good con dition, having tolerated the procedure well. JOB #: [id number] EXT JOB #:[id number]
== END 2016-12-14 14:37 | DRG 470 ==
LOC: MS 06:09
PROVIDERS: ADMIT Orthopaedic Surgery; ATTEND Orthopaedic Surgery
PROC: 0SRC0J9 Replacement of Right Knee Joint with Synthetic Substitute, Cemented, Open Approach (ICD-10-PCS; principal; 2016-12-05 07:30)
PROC: 30233N1 Transfusion of Nonautologous Red Blood Cells into Peripheral Vein, Percutaneous Approach (ICD-10-PCS; 2016-12-07)
PROC: 0DBE8ZX Excision of Large Intestine, Via Natural or Artificial Opening Endoscopic, Diagnostic (ICD-10-PCS; 2016-12-11)
PROC: 0DB48ZX Excision of Esophagogastric Junction, Via Natural or Artificial Opening Endoscopic, Diagnostic (ICD-10-PCS; 2016-12-11)
DX: M17.11 Unilateral primary osteoarthritis, right knee (principal); D62 Acute posthemorrhagic anemia; K92.1 Melena; K63.3 Ulcer of intestine; K57.30 Diverticulosis of large intestine without perforation or abscess without bleeding; K44.9 Diaphragmatic hernia without obstruction or gangrene; G89.29 Other chronic pain; M48.00 Spinal stenosis, site unspecified; E66.9 Obesity, unspecified; Z68.32 Body mass index [BMI] 32.0-32.9, adult; R50.82 Postprocedural fever; M79.661 Pain in right lower leg; T45.515A Adverse effect of anticoagulants, initial encounter; G44.40 Drug-induced headache, not elsewhere classified, not intractable; T45.0X5A Adverse effect of antiallergic and antiemetic drugs, initial encounter; R74.0 Nonspecific elevation of levels of transaminase and lactic acid dehydrogenase [LDH]; G62.9 Polyneuropathy, unspecified; E03.8 Other specified hypothyroidism; E55.9 Vitamin D deficiency, unspecified; Y92.230 Patient room in hospital as the place of occurrence of the external cause; Z71.3 Dietary counseling and surveillance; Z79.891 Long term (current) use of opiate analgesic; Z79.899 Other long term (current) drug therapy; Z87.891 Personal history of nicotine dependence
CPT/HCPCS: 36415; 71020; 74020; 74177; 80048; 80053; 81001; 81003; 81025; 82270; 82306; 82607; 83735; 84100; 85014; 85018; 85025; 86850; 86900; 86901; 86920; 87040; 87081; 87086; 87493; 88305

== ENCOUNTER 2017-01-16 15:10 | Emergency (ER) | payer MEDICAID ==
--- NOTE | 2017-01-16 18:19 | ED Physician Documentation ---
PD HPI ABD PAIN - Stated complaint Stated Complaint: DARK BLACK STOOL - Chief complaint Chief Complaint: Abd Pain - History obtained from History obtained from: Patient, Family - History of Present Illness Timing - onset: Other (56-year-old woman was admitted here in early December for knee surgery and subsequently developed a GI bleed with findings consistent with potentially ulcerative colitis on colonoscopy for which she is not under specific treatment. She has had stomach upset the whole time but today was worse, central abdominal pain and had one large black stool.) Review of Systems Ten Systems: 10 systems reviewed and negative Constitutional: reports: Reviewed and negative Throat: reports: Reviewed and negative Cardiac: reports: Reviewed and negative Respiratory: reports: Reviewed and negative PD PAST MEDICAL HISTORY - Past Medical History Past Medical History: Yes Cardiovascular: None Respiratory: None Endocrine/Autoimmune: HyPOthyroidism GI: GI bleed : None HEENT: Chronic sinusitis Psych: Claustrophobia Musculoskeletal: Osteoarthritis, Chronic back pain Derm: None - Past Surgical History Past Surgical History: Yes Ortho: Knee replacement - Present Medications Home Medications: Ambulatory Orders Medication Instructions Recorded Confirmed Calcium Carbonate/Vitamin D3 1 each PO DAILY 11/23/16 01/16/17 [Calcium 600 + Vit D 400 Tablet] Glucosam/Chondr-MSM#6/Manganes 1 each PO DAILY 11/23/16 01/16/17 [Glucosamine-Chondroitin Sftgl] Sennosides/Docusate Sodium [Stool 1 each PO DAILY 11/23/16 01/16/17 Softener-Stimulant Lax] Vitamin D3/Folic Acid [Folixapure 5,000 unit PO DAILY 11/23/16 01/16/17 Tablet] Topiramate [Topamax] 100 mg PO BID 12/05/16 01/16/17 oxyCODONE [Roxicodone] 10 mg PO TID PRN 12/05/16 01/16/17 - Allergies Allergies/Adverse Reactions: Allergies Allergy/AdvReac Type Severity Reaction Status Date / Time No Known Drug Allergies Allergy Verified 11/23/16 16:50 - Social History Does the pt smoke?: No Smoking Status: Never smoker Does the pt drink ETOH?: Yes Does the pt have substance abuse?: No - Family History Family history: reports: Non contributory PD ED PE NORMAL - Vitals Vital signs reviewed: Yes - General General: Alert and oriented X 3, No acute distress - HEENT HEENT: PERRL, EOMI - Neck Neck: Supple, no meningeal sign, No bony TTP - Cardiac Cardiac: RRR, No murmur - Respiratory Respiratory: No respiratory distress, Clear bilaterally - Abdomen Abdomen: Soft, Non tender - Rectal Rectal: Other (Dark guaiac positive stool, RN at bedside) - Back Back: No CVA TTP, No spinal TTP - Extremities Extremities: No deformity, No tenderness to palpate, No edema, No calf tenderness / cord - Neuro Neuro: Alert and oriented X 3, Normal speech - Psych Psych: Normal mood, Normal affect Results - Vitals Vitals: Vital Signs - 24 hr 01/16/17 15:13 Temperature 36.6 C Heart Rate 73 Respiratory 18 Rate Blood Pressure 135/87 H O2 Saturation 100 Oxygen O2 Source Room air - Labs Labs: Laboratory Tests 01/16/17 01/16/17 01/16/17 18:25 18:25 18:25 WBC 6.4 RBC 3.96 L Hgb 12.0 Hct 36.1 L MCV 91.2 MCH 30.4 MCHC 33.3 RDW 13.7 Plt Count 261 MPV 7.1 L Neut # 3.9 Lymph # 2.0 Swift # 0.4 Eos # 0.1 Baso # 0.0 Absolute Nucleated RBC 0.00 Nucleated RBCs 0.0 PT 12.5 INR 1.1 Sodium 141 Potassium 3.4 L Chloride 109 Carbon Dioxide 23 Anion Gap 9.0 BUN 11 Creatinine 0.6 Estimated GFR (MDRD) 104 Glucose 96 Calcium 9.9 Total Bilirubin 0.5 AST 15 ALT 15 Alkaline Phosphatase 61 Total Protein 6.9 Albumin 4.2 Globulin 2.7 Albumin/Globulin Ratio 1.6 Lipase 18 L PD MEDICAL DECISION MAKING - ED course ED course: She has ongoing occasional lower GIB, spoke with Dr Moraes, [employer] attendant surgery, reviewed results, he felt she had ischemic colitis and given normal H/H/ hemodynamics can be discharged with clinc followup. Departure - Departure Disposition: 01 Home, Self Care Clinical Impression: GI bleed Qualifiers: GI bleed type/associated pathology: unspecified gastrointestinal hemorrhage type Qualified Code(s): K92.2 - Gastrointestinal hemorrhage, unspecified Condition: Good Record reviewed to determine appropriate education?: Yes Instructions: ED Hematochezia Stable Follow-Up: Chidi Kirk MD [Provider Admit Priv/Credential] - Within 3 Days Comments: Your blood pressure was elevated today on check into the emergency department. This does not mean that you have hypertension, it is a common phenomenon to come to the emergency department and have elevated blood pressure. I recommend that she see her primary care physician within the week to have it rechecked when you are feeling better.
[2017-01-16 18:36] LABS: BASOPHILS % (AUTO) 0.7 %; EOSINOPHILS # (AUTO) 0.1 10^3/uL (0.0-0.7); EOSINOPHILS % (AUTO) 1.6 %; HCT - HEMATOCRIT 36.1 % (37.0-47.0); LYMPHOCYTES % (AUTO) 30.8 %; MEAN CORPUSCULAR HEMOGLOBIN 30.4 pg (27.0-31.0); MEAN CORPUSCULAR HGB CONC 33.3 g/dL (32.0-36.0); MEAN CORPUSCULAR VOLUME 91.2 fL (81.0-99.0); MEAN PLATELET VOLUME 7.1 fL (7.9-10.8); MONOCYTES # (AUTO) 0.4 10^3/uL (0.0-1.0); MONOCYTES % (AUTO) 6.3 %; NEUTROPHILS # (AUTO) 3.9 10^3/uL (1.5-6.6); NEUTROPHILS % (AUTO) 60.6 %; RED BLOOD COUNT 3.96 10^6/uL (4.20-5.40); RED CELL DISTRIBUTION WIDTH 13.7 % (12.0-15.0); UNCORRECTED WHITE BLOOD COUNT 6.4 x10^3/uL; WHITE BLOOD COUNT 6.4 x10^3/uL (4.8-10.8)
[2017-01-16 18:44] LABS: INR 1.1 (0.8-1.2); PT - PROTHROMBIN TIME 12.5 secs (9.9-12.6)
[2017-01-16 18:49] LABS: ALBUMIN/GLOBULIN RATIO 1.6 (1.0-2.2); BILIRUBIN,TOTAL 0.5 mg/dL (0.2-1.0); CALCIUM 9.9 mg/dL (8.5-10.3); CREATININE 0.6 mg/dL (0.4-1.0); POTASSIUM 3.4 mmol/L (3.5-5.0); TOTAL PROTEIN 6.9 g/dL (6.7-8.2)
[2017-01-16 19:37] VITALS: BP 124/75
== END 2017-01-16 19:37 | disposition home or self-care (01) ==
LOC: ED 15:10
DX: K92.2 Gastrointestinal hemorrhage, unspecified (principal); R03.0 Elevated blood-pressure reading, without diagnosis of hypertension; Z96.659 Presence of unspecified artificial knee joint
CPT/HCPCS: 36415; 80053; 83690; 85025; 85610; 86850; 86900; 86901; 99282; 99284

== ENCOUNTER 2017-01-31 10:48 | Outpatient (CLI) | payer MEDICAID | END 2017-01-31 10:49 | disposition home or self-care (01) | LOC: LAB.N 10:48 | PROVIDERS: ATTEND Physician Assistant | DX: R53.83 Other fatigue (principal) | CPT/HCPCS: 36415; 84443 ==

== ENCOUNTER 2017-02-18 22:19 | Outpatient (CLI) | payer MEDICAID | END 2017-02-18 22:20 | disposition critical access hospital (66) | LOC: EMS 22:19 | PROVIDERS: ATTEND Surgery | DX: R55 Syncope and collapse (principal) | CPT/HCPCS: A0425; A0429 ==

== ENCOUNTER 2017-02-18 22:30 | Emergency (ER) | payer MEDICAID ==
[2017-02-18] MEDS ORDERED: SODIUM CHLORIDE 0.9% 1,000 ML IV ONE (22:37)
--- NOTE | 2017-02-18 22:45 | ED Physician Documentation ---
PD HPI SYNCOPE - Stated complaint Stated Complaint: DIZZY - Chief complaint Chief Complaint: Neuro - History obtained from History obtained from: Patient, EMS - History of Present Illness Witnessed: Witnessed Timing - onset: Today Duration: Minutes Preceding symptoms: Nausea / vomiting, Light headed, Generalized weakness Associated symptoms: No: Seizure, Chest pain, Diaphoresis, Dyspnea Contributing factors: Decreased PO intake Injury occurred: None Treatment MIXER HELPER: Fluids Similar symptoms before: Diagnosis (dehydartion) Recently seen: Other (admitted to hospital for knee surgery and had complications) - Additional information Additional information: 56 y/o female with a history of chronic back and neck pain has had a recent right knee reconstruction and replacement. During that hospitalization she developed GI bleeding and required a transfusion. The bleeding was presumed to be due to ulcerative colitis seen on scoping. She had a slow recovery and required a month long stay in a jail. Review of Systems Constitutional: reports: Myalgias, Fatigue. denies: Fever Eyes: denies: Decreased vision Ears: denies: Ear pain Nose: denies: Rhinorrhea / runny nose, Congestion Throat: denies: Dental pain / toothache, Sore throat Cardiac: denies: Chest pain / pressure, Palpitations Respiratory: denies: Dyspnea, Cough GI: reports: Abdominal Pain, Nausea : denies: Dysuria, Frequency Skin: denies: Rash Musculoskeletal: reports: Extremity pain, Pain with weight bearing. denies: Neck pain, Back pain Neurologic: reports: Generalized weakness. denies: Focal weakness, Numbness PD PAST MEDICAL HISTORY - Past Medical History Cardiovascular: None Respiratory: None Endocrine/Autoimmune: HyPOthyroidism GI: GI bleed : None HEENT: Chronic sinusitis Psych: Claustrophobia Musculoskeletal: Osteoarthritis, Chronic back pain Derm: None - Past Surgical History Past Surgical History: Yes Ortho: Knee replacement - Present Medications Home Medications: Ambulatory Orders Medication Instructions Recorded Confirmed Calcium Carbonate/Vitamin D3 1 each PO DAILY 11/23/16 02/18/17 [Calcium 600 + Vit D 400 Tablet] Glucosam/Chondr-MSM#6/Manganes 1 each PO DAILY 11/23/16 02/18/17 [Glucosamine-Chondroitin Sftgl] Sennosides/Docusate Sodium [Stool 1 each PO DAILY 11/23/16 02/18/17 Softener-Stimulant Lax] Vitamin D3/Folic Acid [Folixapure 5,000 unit PO DAILY 11/23/16 02/18/17 Tablet] Topiramate [Topamax] 100 mg PO BID 12/05/16 02/18/17 oxyCODONE [Roxicodone] 10 mg PO DAILY 12/05/16 02/18/17 Folic Acid 1 tab PO DAILY 02/18/17 02/18/17 Mesalamine [Asacol Hd] 1 tab PO TID 02/18/17 02/18/17 - Allergies Allergies/Adverse Reactions: Allergies Allergy/AdvReac Type Severity Reaction Status Date / Time No Known Drug Allergies Allergy Verified 02/18/17 22:36 - Social History Does the pt smoke?: No Smoking Status: Never smoker Does the pt drink ETOH?: Yes Does the pt have substance abuse?: No PD ED PE NORMAL - Vitals Vital signs reviewed: Yes (hypertensive ) - General General: No acute distress, Well developed/nourished - HEENT HEENT: Atraumatic, PERRL, EOMI, Ears normal, Moist mucous membranes - Neck Neck: Supple, no meningeal sign, No bony TTP - Cardiac Cardiac: RRR, No murmur - Respiratory Respiratory: No respiratory distress, Clear bilaterally - Abdomen Abdomen: Soft, Non tender - Derm Derm: Normal color, Warm and dry, No rash - Extremities Extremities: No deformity, No edema, Other (The surgical scar is clean dry and without signs of inflamation ) - Neuro Neuro: No motor deficit, No sensory deficit - Psych Psych: Normal mood, Normal affect Results - Vitals Vitals: Vital Signs - 24 hr 02/18/17 02/19/17 02/19/17 22:33 00:46 01:39 Temperature 37.3 C Heart Rate 82 80 83 Respiratory 18 16 16 Rate Blood Pressure 128/83 H 107/63 104/53 L O2 Saturation 99 98 98 Oxygen O2 Source Room air - EKG (time done) 2325 Rate: Rate (enter#) (87) Rhythm: NSR [place]: LAD Compare to prior EKG: Old EKG unavailable Computer interpretation: Agree with computer - Labs Labs: Laboratory Tests 02/18/17 02/18/17 02/18/17 22:45 22:45 22:45 WBC 5.6 RBC 4.18 L Hgb 12.5 Hct 36.5 L MCV 87.3 MCH 29.9 MCHC 34.2 RDW 13.2 Plt Count 267 MPV 6.9 L Neut # 2.9 Lymph # 2.1 Ward # 0.5 Eos # 0.1 Baso # 0.0 Absolute Nucleated RBC 0.01 Nucleated RBCs 0.1 Sodium 139 Potassium 3.4 L Chloride 106 Carbon Dioxide 22 Anion Gap 11.0 BUN 8 Creatinine 0.8 Estimated GFR (MDRD) 74 L Glucose 106 H Calcium 10.0 Total Bilirubin 0.3 AST 16 ALT 13 Alkaline Phosphatase 69 Troponin I < 0.04 Total Protein 7.1 Albumin 4.1 Globulin 3.0 Albumin/Globulin Ratio 1.4 Lipase 23 Cortisol Urine Color Urine Clarity Urine pH Ur Specific [place] Urine Protein Urine Glucose (UA) Urine Ketones Urine Occult Blood Urine Nitrite Urine Bilirubin Urine Urobilinogen Ur Leukocyte Esterase Ur Microscopic Review Urine Culture Comments 02/18/17 02/18/17 22:45 23:28 WBC RBC Hgb Hct MCV MCH MCHC RDW Plt Count MPV Neut # Lymph # Ward # Eos # Baso # Absolute Nucleated RBC Nucleated RBCs Sodium Potassium Chloride Carbon Dioxide Anion Gap BUN Creatinine Estimated GFR (MDRD) Glucose Calcium Total Bilirubin AST ALT Alkaline Phosphatase Troponin I Total Protein Albumin Globulin Albumin/Globulin Ratio Lipase Cortisol 17.1 Urine Color YELLOW Urine Clarity CLEAR Urine pH 6.0 Ur Specific [place] <=1.005 Urine Protein NEGATIVE Urine Glucose (UA) NEGATIVE Urine Ketones NEGATIVE Urine Occult Blood NEGATIVE Urine Nitrite NEGATIVE Urine Bilirubin NEGATIVE Urine Urobilinogen 0.2 (NORMAL) Ur Leukocyte Esterase NEGATIVE Ur Microscopic Review NOT INDICATED Urine Culture Comments NOT INDICATED PD MEDICAL DECISION MAKING - ED course Complexity details: reviewed old records, reviewed results, re-evaluated patient , considered differential, d/w patient ED course: 56 y/o female with a history of colitis on a recent admission for a knee replacement appears dehydrated this evening. She gives a history of debilitating weakness and dizziness and after having a surgery to replace her knee in December. She gives a history of abdominal pain, nausea, weakness, loss of appetite, weight loss and fatigue that has been present since her procedure. She had one episode of black stool since the admission. She is found to be mildly dehydrated on interrogation of the IVC and she is administered IV saline. She is a healthy appearing 56 y/o female that gives a history of debilitating weakness and significant disability. I considered adrenal insufficiency as a potential cause and administered dexamethasone 10mg IV and checked a random cortisol level which was in a normal range. Her potassium was a tick under normal and does not support a diagnosis of adrenal insufficiency and her sodium was normal. She was improved at the time of discharge. Departure - Departure Disposition: 01 Home, Self Care Clinical Impression: Dehydration Condition: Stable Instructions: ED Dehydration Follow-Up: Matthew Jara MD [Credentialed Staff Provider] -
[2017-02-18 22:59] LABS: BASOPHILS % (AUTO) 0.9 %; EOSINOPHILS # (AUTO) 0.1 10^3/uL (0.0-0.7); HCT - HEMATOCRIT 36.5 % (37.0-47.0); HGB - HEMOGLOBIN 12.5 g/dL (12.0-16.0); LYMPHOCYTES # (AUTO) 2.1 10^3/uL (1.5-3.5); LYMPHOCYTES % (AUTO) 37.4 %; MEAN CORPUSCULAR HEMOGLOBIN 29.9 pg (27.0-31.0); MEAN CORPUSCULAR HGB CONC 34.2 g/dL (32.0-36.0); MEAN CORPUSCULAR VOLUME 87.3 fL (81.0-99.0); MEAN PLATELET VOLUME 6.9 fL (7.9-10.8); MONOCYTES # (AUTO) 0.5 10^3/uL (0.0-1.0); MONOCYTES % (AUTO) 8.2 %; NEUTROPHILS # (AUTO) 2.9 10^3/uL (1.5-6.6); NEUTROPHILS % (AUTO) 51.5 %; NUCLEATED RED BLOOD CELLS AUTO 0.1 /100WBC; RED BLOOD COUNT 4.18 10^6/uL (4.20-5.40); RED CELL DISTRIBUTION WIDTH 13.2 % (12.0-15.0); UNCORRECTED WHITE BLOOD COUNT 5.6 x10^3/uL; WHITE BLOOD COUNT 5.6 x10^3/uL (4.8-10.8)
[2017-02-18 23:04] LABS: ALBUMIN/GLOBULIN RATIO 1.4 (1.0-2.2); BILIRUBIN,TOTAL 0.3 mg/dL (0.2-1.0); CREATININE 0.8 mg/dL (0.4-1.0); POTASSIUM 3.4 mmol/L (3.5-5.0); TOTAL PROTEIN 7.1 g/dL (6.7-8.2)
[2017-02-18 23:31] LABS: BILIRUBIN,URINE NEGATIVE (NEGATIVE)
[2017-02-18 23:32] LABS: UA CHARGE (STRIP ONLY) YES; UR CULTURE IF IND NOT INDICATED
[2017-02-18] MEDS ORDERED: POTASSIUM BICARB 25 MEQ TABLET PO STA (23:43)
[2017-02-18] MEDS ORDERED: POTASSIUM BICARB 25 MEQ TABLET PO ONE (23:57)
[2017-02-18] MEDS ORDERED: ONDANSETRON 4 MG/2 ML VIAL IVP STA ×2 (23:58)
[2017-02-19] MEDS ORDERED: ONDANSETRON 4 MG/2 ML VIAL ONE
[2017-02-19] MEDS ORDERED: DEXAMETHASONE 10 MG/ML VIAL IVP STA (01:26)
[2017-02-19] MEDS ORDERED: DEXAMETHASONE 10 MG/ML VIAL ONE (01:40)
[2017-02-19] MEDS ORDERED: SODIUM CHLORIDE FLUSH 0.9% 10 ML SYRINGE IVP ONE (01:41)
[2017-02-19 04:39] VITALS: BP 109/55
== END 2017-02-19 04:43 | disposition home or self-care (01) ==
LOC: ED 22:30
DX: E86.0 Dehydration (principal); E03.9 Hypothyroidism, unspecified; M19.90 Unspecified osteoarthritis, unspecified site
CPT/HCPCS: 36415; 80053; 81003; 82533; 83690; 84484; 85025; 93005; 96361; 96374; 96375; 99284; A9270; 81001; 87086

== ENCOUNTER 2017-02-28 14:30 | Outpatient (CLI) | payer MEDICAID | END 2017-02-28 14:45 | disposition home or self-care (01) | LOC: RT.N 14:30 | PROVIDERS: ATTEND Family Medicine | DX: R42 Dizziness and giddiness (principal); R53.83 Other fatigue | CPT/HCPCS: 93005 ==

== ENCOUNTER 2017-03-02 11:12 | Outpatient (CLI) | payer MEDICAID ==
[2017-03-02 13:23] LABS: BASOPHILS % (AUTO) 0.6 %; EOSINOPHILS # (AUTO) 0.1 10^3/uL (0.0-0.7); HCT - HEMATOCRIT 37.4 % (37.0-47.0); HGB - HEMOGLOBIN 12.8 g/dL (12.0-16.0); LYMPHOCYTES # (AUTO) 1.7 10^3/uL (1.5-3.5); LYMPHOCYTES % (AUTO) 36.6 %; MEAN CORPUSCULAR HEMOGLOBIN 29.7 pg (27.0-31.0); MEAN CORPUSCULAR HGB CONC 34.1 g/dL (32.0-36.0); MEAN CORPUSCULAR VOLUME 87.2 fL (81.0-99.0); MEAN PLATELET VOLUME 7.6 fL (7.9-10.8); MONOCYTES # (AUTO) 0.4 10^3/uL (0.0-1.0); MONOCYTES % (AUTO) 8.7 %; NEUTROPHILS # (AUTO) 2.4 10^3/uL (1.5-6.6); NEUTROPHILS % (AUTO) 52.1 %; RED BLOOD COUNT 4.29 10^6/uL (4.20-5.40); RED CELL DISTRIBUTION WIDTH 13.8 % (12.0-15.0); UNCORRECTED WHITE BLOOD COUNT 4.6 x10^3/uL; WHITE BLOOD COUNT 4.6 x10^3/uL (4.8-10.8)
[2017-03-02 13:35] LABS: ALBUMIN/GLOBULIN RATIO 1.3 (1.0-2.2); BILIRUBIN,TOTAL 0.6 mg/dL (0.2-1.0); CALCIUM 10.1 mg/dL (8.5-10.3); CREATININE 0.7 mg/dL (0.4-1.0); POTASSIUM 3.7 mmol/L (3.5-5.0)
== END 2017-03-02 11:13 | disposition home or self-care (01) ==
LOC: LAB.N 11:12
PROVIDERS: ATTEND Family Medicine
DX: R42 Dizziness and giddiness (principal); R53.83 Other fatigue
CPT/HCPCS: 36415; 80053; 85025

== ENCOUNTER 2017-05-17 08:59 | Day surgery (SDC) | payer MEDICAID ==
[2017-05-17 09:31] LABS: HCG UR QUAL NEGATIVE
[2017-05-17] MEDS ORDERED: LACTATED RINGERS 1,000 ML IV ONE (09:41)
[2017-05-17] MEDS ORDERED: MIDAZOLAM 2 MG/2 ML VIAL IVP ONE (10:08)
[2017-05-17] MEDS ORDERED: fentaNYL 100 MCG/2 ML VIAL IVP ONE (10:08)
[2017-05-17 11:27] VITALS: BP 102/83
== END 2017-05-17 09:00 | disposition home or self-care (01) ==
LOC: SDS 08:59
PROVIDERS: ATTEND Internal Medicine
PROC: 0DJD8ZZ Inspection of Lower Intestinal Tract, Via Natural or Artificial Opening Endoscopic (ICD-10-PCS; principal; 2017-05-17 10:00)
DX: Z87.19 Personal history of other diseases of the digestive system (principal); K64.8 Other hemorrhoids
CPT/HCPCS: 45378; 81025; J7120

== ENCOUNTER 2017-05-22 11:32 | Outpatient (CLI) | payer MEDICAID ==
[2017-05-22 20:01] LABS: THYROID STIMULATING HORMONE < 0.08 uIU/mL (0.34-5.60)
== END 2017-05-22 11:33 | disposition home or self-care (01) ==
LOC: LAB.N 11:32
PROVIDERS: ATTEND Internal Medicine Endocrinology, Diabetes & Metabolism
DX: E05.90 Thyrotoxicosis, unspecified without thyrotoxic crisis or storm (principal)
CPT/HCPCS: 36415; 84439; 84443

== ENCOUNTER 2017-06-24 13:11 | Outpatient (CLI) | payer MEDICAID ==
--- NOTE | 2017-06-25 08:10 | MRI Report ---
EXAM: MRI CERVICAL SPINE WITHOUT CONTRAST EXAM DATE: 06/24/2017 02:26 PM. CLINICAL HISTORY: 56-year-old with neck pain as well as bilateral arm numbness and tingling COMPARISONS: MR cervical spine 01/19/2015. TECHNIQUE: Multiplanar, multisequence T1-weighted and fluid-sensitive sequences of the cervical spine without contrast. Other: None. FINDINGS: Neurologic Structures: The visualized posterior fossa structures are unremarkable. No signal abnormal ity in the visualized spinal cord. Alignment: There is a 1-2 mm of posterior subluxation of C3 on C4 and C4 on C5. There is 1-2 mm of an terior subluxation of C5 on C6 and C6 on C7. Findings appear unchanged from 01/19/2015. Bone Marrow: No acute fracture. No marrow replacing lesion. No abnormal marrow edema. There is clinic al endplate degenerative change, mild loss of disk height, disk desiccation seen throughout the cervi peyman spine. Interspace Levels/Facets: C1-C2: Unremarkable. C2-C3: Unremarkable. C3-C4: Small posterior disk osteophyte complex. Bilateral uncovertebral osteophyte and arthritic face t disease. Mild spinal canal stenosis. Mild bilateral neural foraminal narrowing. Findings appear sim ilar to slightly progressed 01/01/2015. C4-C5: Small posterior disk osteophyte complex. Bilateral uncovertebral osteophyte and arthritic face t disease. Mild spinal canal stenosis. Mild bilateral neural foraminal narrowing. Findings appear sim ilar to slightly progressed 01/01/2015. C5-C6: Slight posterior disk osteophyte complex. Right uncovertebral osteophyte and facet disease. No spinal canal stenosis. [id number] right neural foraminal narrowing. Findings are stable to sli ghtly progressed. C6-C7: Small posterior disk osteophyte complex. Bilateral uncovertebral osteophyte and arthritic face t disease. Minimal to mild spinal canal stenosis. Mild right neuroforaminal narrowing. Findings appea r stable to slightly progressed. C7-T1: Unremarkable. Musculature: Normal. No edema or fatty atrophy. Other: Again seen is an ill-defined masslike T2 signal hyperintensity in the low anterior neck in the region of the thyroid gland that appears unchanged from 01/19/2015. This may represent thyroid goiter . IMPRESSION: 1. There is a 1-2 mm of posterior subluxation of C3 on C4 and C4 on C5. There is 1-2 mm of anterior s ubluxation of C5 on C6 and C6 on C7. Findings appear unchanged from 01/19/2015. 2. Multilevel degenerative changes. C3-C4: Mild spinal canal stenosis. Mild bilateral neural foraminal narrowing. Findings appear similar to slightly progressed 01/01/2015. C4-C5: Mild spinal canal stenosis. Mild bilateral neural foraminal narrowing. Findings appear similar to slightly progressed 01/01/2015. C5-C6: No spinal canal stenosis. Kkvw-[id number] right neural foraminal narrowing. Findings are stab le to slightly progressed. C6-C7: Minimal to mild spinal canal stenosis. Mild right neuroforaminal narrowing. Findings appear st able to slightly progressed. 3. Again seen is an ill-defined masslike T2 signal hyperintensity in the low anterior neck in the reg ion of the thyroid gland that appears unchanged from 01/19/2015. This may represent thyroid goiter. If not already done an ultrasound can be considered to further evaluate this finding. [facility] Referring Provider Line: [phone] SITE ID: [id number]
== END 2017-06-24 13:12 | disposition home or self-care (01) ==
LOC: DI 13:11
PROVIDERS: ATTEND Anesthesiology Pain Medicine
DX: M47.892 Other spondylosis, cervical region (principal); M43.12 Spondylolisthesis, cervical region; M50.31 Other cervical disc degeneration, high cervical region
CPT/HCPCS: 72141

== ENCOUNTER 2017-08-02 14:34 | Outpatient (CLI) | payer MEDICAID | END 2017-08-02 14:35 | disposition home or self-care (01) | LOC: LAB.N 14:34 | PROVIDERS: ATTEND Orthopaedic Surgery | DX: R22.41 Localized swelling, mass and lump, right lower limb (principal) | CPT/HCPCS: 36415; 85651; 86140 ==

== ENCOUNTER 2017-08-02 14:36 | Outpatient (CLI) | payer MEDICAID ==
--- NOTE | 2017-08-03 12:26 | XRAY Report ---
DATE OF SERVICE: 08/02/2017 TWO-VIEW THORACIC SPINE: 08/02/2017 CLINICAL INDICATION: Mid back pain. FINDINGS: Frontal and lateral views of the thoracic spine demonstrate moderate degenerative disk disease, with anterior kyphosis. There is no evidence of acute fracture. No paraspinal hematoma is seen. IMPRESSION: MODERATE DEGENERATIVE CHANGES, WITH ANTERIOR KYPHOSIS. TD: 08/03/2017 12:24
== END 2017-08-02 14:37 | disposition home or self-care (01) ==
LOC: DI.N 14:36
PROVIDERS: ATTEND Acupuncturist
DX: M51.34 Other intervertebral disc degeneration, thoracic region (principal); M40.294 Other kyphosis, thoracic region; R22.41 Localized swelling, mass and lump, right lower limb
CPT/HCPCS: 36415; 72020; 72070; 85651; 86140

== ENCOUNTER 2017-10-03 11:03 | Outpatient (CLI) | payer MEDICAID ==
--- NOTE | 2017-10-03 18:25 | Mammography Report ---
DIGITAL BASELINE MAMMOGRAM: 10/03/2017 HISTORY: None. COMPARISON: None. TECHNIQUE: Bilateral digital CC and MLO projections. FINDINGS: There is a small 7 mm nodular density in the middle to posterior third of the right breast in the 12 o'clock position for which spot compression views and possible ultrasound are suggested. A dense 1 cm nodule in the upper outer posterior left breast is likely a lymph node. No suspicious microcalcifications, skin thickening or architectural distortion. IMPRESSION: NEEDS ADDITIONAL EVALUATION RIGHT BREAST. BIRADS category: 0, incomplete. STANDARD QUALIFYING STATEMENTS 1. This examination was reviewed with the aid of Computed-Aided Detection (CAD). 2. A negative or benign imaging report should not delay biopsy if clinically suspicious findings are present. Consider surgical consultation if warranted. More than 5% of cancers are not identified by imaging. 3. Dense breasts may obscure an underlying neoplasm. cc: MARCELO STONE, TD: 10/03/2017 18:24 cc: MARCELO STONE
== END 2017-10-03 11:04 | disposition home or self-care (01) ==
LOC: DI.N 11:03
PROVIDERS: ATTEND Family Medicine
DX: Z12.31 Encounter for screening mammogram for malignant neoplasm of breast (principal); R92.8 Other abnormal and inconclusive findings on diagnostic imaging of breast
CPT/HCPCS: 77067

== ENCOUNTER 2017-10-23 11:36 | Outpatient (CLI) | payer MEDICAID ==
[2017-10-23 19:12] LABS: BASOPHILS # (AUTO) 0.1 10^3/uL (0.0-0.1); BASOPHILS % (AUTO) 0.9 %; EOSINOPHILS # (AUTO) 0.1 10^3/uL (0.0-0.7); EOSINOPHILS % (AUTO) 1.5 %; HGB - HEMOGLOBIN 13.5 g/dL (12.0-16.0); LYMPHOCYTES # (AUTO) 1.9 10^3/uL (1.5-3.5); LYMPHOCYTES % (AUTO) 31.2 %; MEAN CORPUSCULAR HEMOGLOBIN 30.5 pg (27.0-31.0); MEAN CORPUSCULAR HGB CONC 32.7 g/dL (32.0-36.0); MEAN CORPUSCULAR VOLUME 93.3 fL (81.0-99.0); MEAN PLATELET VOLUME 7.4 fL (7.9-10.8); MONOCYTES # (AUTO) 0.5 10^3/uL (0.0-1.0); MONOCYTES % (AUTO) 7.9 %; NEUTROPHILS # (AUTO) 3.5 10^3/uL (1.5-6.6); NEUTROPHILS % (AUTO) 58.5 %; PLT - PLATELET COUNT 259 10^3/uL (130-450); RED BLOOD COUNT 4.43 10^6/uL (4.20-5.40); RED CELL DISTRIBUTION WIDTH 13.2 % (12.0-15.0); WHITE BLOOD COUNT 5.9 x10^3/uL (4.8-10.8)
[2017-10-23 19:22] LABS: % IRON SATURATION 19 % (20-50); ALBUMIN 4.3 g/dL (3.2-5.5); ALBUMIN/GLOBULIN RATIO 1.6 (1.0-2.2); ALKALINE PHOSPHATASE 87 IU/L (42-121); ALT ALANINE AMINOTRANSFERASE 15 IU/L (10-60); AST ASPARTATE AMINOTRANSFERASE 14 IU/L (10-42); BILIRUBIN,TOTAL 0.5 mg/dL (0.2-1.0); BUN - BLOOD UREA NITROGEN 16 mg/dL (6-20); CALCIUM 9.7 mg/dL (8.5-10.3); CARBON DIOXIDE - CO2 26 mmol/L (21-32); CHLORIDE 104 mmol/L (101-111); CREATININE 0.7 mg/dL (0.4-1.0); GFR - MDRD 87 (>89); GLUCOSE 85 mg/dL (70-100); IRON 77 ug/dL (28-170); SODIUM 137 mmol/L (135-145); TOTAL IRON BINDING CAPACITY 402 ug/dL (250-450); TRANSFERRIN 287 mg/dL (192-382)
[2017-10-23 19:23] LABS: THYROID STIMULATING HORMONE < 0.08 uIU/mL (0.34-5.60)
[2017-10-23 19:29] LABS: FERRITIN 23.8 ng/mL (11.0-306.8)
[2017-10-23 20:41] LABS: FREE T4 (FREE THYROXINE) 0.76 ng/dL (0.58-1.64)
[2017-10-23 20:48] LABS: FOLATE > 49.60 ng/mL (5.90 - >24.8)
== END 2017-10-23 11:37 | disposition home or self-care (01) ==
LOC: LAB.N 11:36
PROVIDERS: ATTEND Nurse Practitioner
DX: R53.83 Other fatigue (principal); R10.11 Right upper quadrant pain; K21.9 Gastro-esophageal reflux disease without esophagitis
CPT/HCPCS: 36415; 80053; 82607; 82728; 82746; 83540; 84439; 84443; 84466; 85025

== ENCOUNTER 2017-11-01 11:13 | Outpatient (CLI) | payer MEDICAID | END 2017-11-01 11:14 | disposition home or self-care (01) | LOC: LAB.N 11:13 | PROVIDERS: ATTEND Nurse Practitioner | DX: E23.0 Hypopituitarism (principal) | CPT/HCPCS: 36415; 84481; 86800 ==

== ENCOUNTER 2017-11-06 14:09 | Outpatient (CLI) | payer MEDICAID ==
--- NOTE | 2017-11-06 17:33 | Mammography Report ---
DIGITAL DIAGNOSTIC RIGHT MAMMOGRAM: 11/06/2017 CLINICAL INDICATION: Possible nodule on baseline examination. TECHNIQUE: Right true lateral and spot compression views. COMPARISON: 10/03/2017 FINDINGS: The right breast again demonstrates scattered fibroglandular densities. The density in question, in the right upper posterior breast does not persist on additional compression. No underlying mass lesion or architectural distortion is identified. IMPRESSION: NEGATIVE EXAMINATION. RECOMMENDATION: Routine annual screening unless otherwise clinically indicated. BI-RADS category 1 negative. STANDARD QUALIFYING STATEMENTS 1. This examination was reviewed with the aid of Computed-Aided Detection (CAD). 2. A negative or benign imaging report should not delay biopsy if clinically suspicious findings are present. Consider surgical consultation if warranted. More than 5% of cancers are not identified by imaging. 3. Dense breasts may obscure an underlying neoplasm. TD: 11/06/2017 17:32
== END 2017-11-06 14:10 | disposition home or self-care (01) ==
LOC: DI 14:09
PROVIDERS: ATTEND Family Medicine
DX: R92.8 Other abnormal and inconclusive findings on diagnostic imaging of breast (principal)

== ENCOUNTER 2018-02-08 11:07 | Outpatient (CLI) | payer MEDICAID ==
[2018-02-08 12:44] LABS: BASOPHILS % (AUTO) 0.9 %; EOSINOPHILS # (AUTO) 0.1 10^3/uL (0.0-0.7); EOSINOPHILS % (AUTO) 2.5 %; HGB - HEMOGLOBIN 13.4 g/dL (12.0-16.0); LYMPHOCYTES # (AUTO) 1.6 10^3/uL (1.5-3.5); LYMPHOCYTES % (AUTO) 33.3 %; MEAN CORPUSCULAR HEMOGLOBIN 31.8 pg (27.0-31.0); MEAN CORPUSCULAR HGB CONC 33.7 g/dL (32.0-36.0); MEAN CORPUSCULAR VOLUME 94.4 fL (81.0-99.0); MEAN PLATELET VOLUME 7.5 fL (7.9-10.8); MONOCYTES # (AUTO) 0.3 10^3/uL (0.0-1.0); NEUTROPHILS # (AUTO) 2.7 10^3/uL (1.5-6.6); NEUTROPHILS % (AUTO) 56.3 %; PLT - PLATELET COUNT 253 10^3/uL (130-450); RED BLOOD COUNT 4.23 10^6/uL (4.20-5.40); RED CELL DISTRIBUTION WIDTH 12.7 % (12.0-15.0); WHITE BLOOD COUNT 4.7 x10^3/uL (4.8-10.8)
[2018-02-08 13:23] LABS: ALBUMIN 4.1 g/dL (3.2-5.5); ALBUMIN/GLOBULIN RATIO 1.5 (1.0-2.2); BILIRUBIN,TOTAL 0.5 mg/dL (0.2-1.0); CALCIUM 9.8 mg/dL (8.5-10.3); CREATININE 0.7 mg/dL (0.4-1.0); TOTAL PROTEIN 6.8 g/dL (6.7-8.2)
== END 2018-02-08 11:08 ==
LOC: LAB.N 11:07
PROVIDERS: ATTEND Family Medicine
DX: R53.83 Other fatigue (principal); R00.2 Palpitations
CPT/HCPCS: 36415; 80053; 84443; 85025

== ENCOUNTER → 2018-02-08 | Outpatient (CLI) | payer MEDICAID | LOC: RT.N 10:50 | PROVIDERS: ATTEND Family Medicine | DX: R53.83 Other fatigue (principal); R00.2 Palpitations | CPT/HCPCS: 93005 ==

== ENCOUNTER → 2018-03-06 | Outpatient (CLI) | payer MEDICAID | LOC: LAB.R 08:00 | PROVIDERS: ATTEND Family Medicine | DX: K92.1 Melena (principal) | CPT/HCPCS: 82274 ==

== ENCOUNTER 2018-11-07 08:00 | Outpatient (CLI) | payer MEDICAID ==
[2018-11-07 18:55] LABS: EOSINOPHILS % (AUTO) 1.2 %; HGB - HEMOGLOBIN 13.7 g/dL (12.0-16.0); LYMPHOCYTES # (AUTO) 1.4 10^3/uL (1.5-3.5); LYMPHOCYTES % (AUTO) 34.9 %; MEAN CORPUSCULAR HEMOGLOBIN 31.5 pg (27.0-31.0); MEAN CORPUSCULAR HGB CONC 33.4 g/dL (32.0-36.0); MEAN CORPUSCULAR VOLUME 94.5 fL (81.0-99.0); MEAN PLATELET VOLUME 7.6 fL (7.9-10.8); MONOCYTES # (AUTO) 0.3 10^3/uL (0.0-1.0); NEUTROPHILS # (AUTO) 2.2 10^3/uL (1.5-6.6); NEUTROPHILS % (AUTO) 55.9 %; PLT - PLATELET COUNT 252 10^3/uL (130-450); RED BLOOD COUNT 4.35 10^6/uL (4.20-5.40); RED CELL DISTRIBUTION WIDTH 12.9 % (12.0-15.0); WHITE BLOOD COUNT 3.9 x10^3/uL (4.8-10.8)
[2018-11-07 19:09] LABS: ALBUMIN 4.3 g/dL (3.2-5.5); ALBUMIN/GLOBULIN RATIO 1.8 (1.0-2.2); BILIRUBIN,TOTAL 0.7 mg/dL (0.2-1.0); CALCIUM 9.5 mg/dL (8.5-10.3); CREATININE 0.7 mg/dL (0.4-1.0); TOTAL PROTEIN 6.7 g/dL (6.7-8.2)
[2018-11-07 19:14] LABS: HB2 TOTAL 15.1 g/dL; HEMOGLOBIN A1C 0.52 g/dL; HEMOGLOBIN A1C % 5.3 % (4.6-6.2)
== END 2018-11-07 23:59 | disposition home or self-care (01) ==
LOC: LAB.N 08:00
PROVIDERS: ATTEND Physician Assistant Medical
DX: R53.83 Other fatigue (principal)
CPT/HCPCS: 36415; 80053; 83036; 85025

== ENCOUNTER 2019-01-10 08:00 | Outpatient (CLI) | payer MEDICAID ==
[2019-01-10 18:33] LABS: BASOPHILS # (AUTO) 0.1 10^3/uL (0.0-0.1); BASOPHILS % (AUTO) 1.3 %; EOSINOPHILS # (AUTO) 0.3 10^3/uL (0.0-0.7); HGB - HEMOGLOBIN 13.5 g/dL (12.0-16.0); LYMPHOCYTES # (AUTO) 2.3 10^3/uL (1.5-3.5); LYMPHOCYTES % (AUTO) 41.4 %; MEAN CORPUSCULAR HEMOGLOBIN 31.2 pg (27.0-31.0); MEAN CORPUSCULAR HGB CONC 32.1 g/dL (32.0-36.0); MEAN PLATELET VOLUME 9.3 fL (7.9-10.8); MONOCYTES # (AUTO) 0.4 10^3/uL (0.0-1.0); MONOCYTES % (AUTO) 7.7 %; NEUTROPHILS # (AUTO) 2.4 10^3/uL (1.5-6.6); NEUTROPHILS % (AUTO) 44.4 %; PLT - PLATELET COUNT 288 10^3/uL (130-450); RED BLOOD COUNT 4.33 10^6/uL (4.20-5.40); RED CELL DISTRIBUTION WIDTH 13.4 % (12.0-15.0); WHITE BLOOD COUNT 5.4 x10^3/uL (4.8-10.8)
== END 2019-01-10 23:59 | disposition home or self-care (01) ==
LOC: LAB.WCP 08:00
PROVIDERS: ATTEND Physician Assistant Medical
DX: R53.83 Other fatigue (principal); E05.90 Thyrotoxicosis, unspecified without thyrotoxic crisis or storm; K21.9 Gastro-esophageal reflux disease without esophagitis
CPT/HCPCS: 36415; 85025

== ENCOUNTER 2019-01-29 09:04 | Outpatient (CLI) | payer MEDICAID ==
--- NOTE | 2019-01-29 14:50 | MRI Report ---
Reason: LOW BACK PAIN Procedure Date: 01/29/2019 Accession Number: [id number] / [id number] Procedure: MRI - Lumbar Spine W/O CPT Code: FULL RESULT: EXAM: MRI LUMBAR SPINE WITHOUT CONTRAST EXAM DATE: 01/29/2019 09:59 AM. CLINICAL HISTORY: Low back pain. COMPARISON: LUMBAR SPINE W/O 12/25/2012 4:25 PM. TECHNIQUE: Multiplanar, multisequence T1-weighted and fluid-sensitive sequences of the lumbar spine from T12 to S1 without contrast. Other: None. FINDINGS: There is leftward curvature centered over L1 and rightward curvature centered over the L4-L5 disk space. Tiny T2 hyperintensities in the left kidney are not well characterized by MRI but might well reflect tiny cortical cysts. No suspicious marrow replacement has developed in the lumbar vertebral bodies. Degenerative Schmorl's node formation is seen at multiple levels most evident in the lower thoracic spine and in the upper lumbar spine. This is stable. This results in some chronic vertebral body height loss particularly at T11 and T12. No abnormal signal seen in the conus medullaris. L1-L2: A minimal posterior disk protrusion is seen with a posterior annular fissure. No central canal or foraminal stenosis. L2-L5: No posterior disk protrusion has developed. L5-S1: A minimal shallow foraminal protrusion bilaterally is stable. No central canal or foraminal stenosis. Mild facet/ligamentum flavum hypertrophy in the mid and lower lumbar spine is stable. IMPRESSION: 1. Development of a minimal posterior disk protrusion at L1-L2 without central canal or foraminal stenosis. 2. Otherwise, stable MRI of the lumbar spine. 3. No central canal or foraminal stenosis is present. Comment: The following findings are so common in adults without low back pain that while we report their presence, they must be interpreted with caution and in the context of the clinical situation. (Reference Ondinavik et al, Spine 2001) Prevalence of findings in patients without low back pain: Disk degeneration (any evidence): 92% Disk desiccation/T2 signal loss: 83% Disk height loss: 56% Disk bulge: 64% Disk protrusion: 32% Annular tear/high intensity zone: 38% RADIA
== END 2019-01-29 09:05 | disposition home or self-care (01) ==
LOC: DI 09:04
PROVIDERS: ATTEND Acupuncturist
DX: M51.26 Other intervertebral disc displacement, lumbar region (principal)
CPT/HCPCS: 72148

== ENCOUNTER 2019-05-06 14:16 | Outpatient (CLI) | payer MEDICAID | END 2019-05-06 14:17 | disposition critical access hospital (66) | LOC: EMS 14:16 | PROVIDERS: ATTEND Surgery | DX: R23.2 Flushing (principal); R51 Headache; R19.7 Diarrhea, unspecified; R11.0 Nausea ==

== ENCOUNTER 2019-05-06 14:38 | Emergency (ER) | payer MEDICAID ==
[2019-05-06] MEDS ORDERED: SODIUM CHLORIDE 0.9% 1,000 ML IV ONE (14:46)
[2019-05-06] MEDS ORDERED: MORPHINE 2 MG/ML CARPUJECT IVP STA (14:46)
--- NOTE | 2019-05-06 14:48 | ED Physician Documentation ---
History of Present Illness - Stated complaint Stated Complaint: DIZZY - Chief complaint Chief Complaint: General - History obtained from History obtained from: Patient, EMS - History of Present Illness Timing: Today (58-year-old woman with history of back and neck problems and Crohn's disease has had diarrhea for few days but it has not been voluminous, just if you are 2 or 3 times a day. No blood. She said some nausea but no vomiting and some queasy stomach without abdominal pain. Today she started to feel lightheaded and dizzy and went home and her blood pressure was checked at home at about 60/30. This was not corroborated by the paramedics. She is having chills and a gradual onset headache. No neck stiffness. She does have some incontinence but that is not new.) Review of Systems Ten Systems: 10 systems reviewed and negative Constitutional: reports: Chills. denies: Fever Nose: denies: Rhinorrhea / runny nose, Congestion Throat: denies: Sore throat Cardiac: denies: Chest pain / pressure, Palpitations Respiratory: denies: Dyspnea, Cough GI: reports: Nausea, Diarrhea. denies: Abdominal Pain, Vomiting, Bloody / black stool PD PAST MEDICAL HISTORY - Past Medical History Cardiovascular: None Respiratory: None Endocrine/Autoimmune: HyPOthyroidism GI: GI bleed : None HEENT: Chronic sinusitis Psych: Claustrophobia Musculoskeletal: Osteoarthritis, Chronic back pain Derm: None - Past Surgical History Past Surgical History: Yes Ortho: Knee replacement - Present Medications Home Medications: Ambulatory Orders Medication Instructions Recorded Confirmed Calcium Carbonate/Vitamin D3 1 each PO DAILY 11/23/16 05/17/17 [Calcium 600 + Vit D 400 Tablet] Glucosam/Chondr-MSM#6/Manganes 1 each PO DAILY 11/23/16 05/17/17 [Glucosamine-Chondroitin Sftgl] Sennosides/Docusate Sodium [Stool 1 each PO DAILY 11/23/16 05/17/17 Softener-Stimulant Lax] Vitamin D3/Folic Acid [Folixapure 5,000 unit PO DAILY 11/23/16 05/17/17 Tablet] Topiramate [Topamax] 100 mg PO BID 12/05/16 05/17/17 oxyCODONE [Roxicodone] 10 mg PO DAILY 12/05/16 05/17/17 Folic Acid 1 tab PO DAILY 02/18/17 05/17/17 Ascorbic Acid [Vitamin C] 500 mg PO 05/06/19 05/06/19 Butalb/Acetaminophen/Caffeine 1 each PO Q4HR PRN #10 capsule 05/06/19 [Fioricet 50-300-40 mg Capsule] Ferrous Gluconate [Iron] 240 mg PO 05/06/19 Loperamide [Imodium] 2 mg PO QID PRN #10 capsule 05/06/19 - Allergies Allergies/Adverse Reactions: Allergies Allergy/AdvReac Type Severity Reaction Status Date / Time No Known Drug Allergies Allergy Verified 02/18/17 22:36 - Social History Does the pt smoke?: No Smoking Status: Never smoker Does the pt drink ETOH?: Yes Does the pt have substance abuse?: No PD ED PE NORMAL - Vitals Vital signs reviewed: Yes - General General: Alert and oriented X 3, No acute distress - HEENT HEENT: PERRL, EOMI - Neck Neck: Supple, no meningeal sign, No bony TTP - Cardiac Cardiac: RRR, No murmur - Respiratory Respiratory: No respiratory distress, Clear bilaterally - Abdomen Abdomen: Normal bowel sounds, Soft, Non tender - Back Back: No CVA TTP, No spinal TTP - Derm Derm: Normal color, Warm and dry - Extremities Extremities: No edema, No calf tenderness / cord - Neuro Neuro: Alert and oriented X 3, Normal speech Results - Vitals Vitals: Vital Signs - 24 hr 05/06/19 05/06/19 05/06/19 14:41 15:18 17:13 Temperature 37 C 36.1 C L 36.7 C Heart Rate 97 75 76 Respiratory 16 18 16 Rate Blood Pressure 89/71 L 119/62 111/41 L O2 Saturation 96 100 98 Oxygen O2 Source Room air - EKG (time done) 1458 Rate: Rate (enter#) (84) Rhythm: NSR [place]: Normal Intervals: Normal OK QRS: Normal Ischemia: Normal ST segments - Labs Labs: Laboratory Tests 05/06/19 05/06/19 05/06/19 14:45 14:45 14:45 WBC 11.8 H RBC 3.80 L Hgb 12.0 Hct 36.7 L MCV 96.6 MCH 31.6 H MCHC 32.7 RDW 13.4 Plt Count 233 MPV 8.7 Neut # (Auto) 9.8 H Lymph # (Auto) 1.0 L Maverick # (Auto) 0.9 Eos # (Auto) 0.0 Baso # (Auto) 0.0 Absolute Nucleated RBC 0.00 Nucleated RBC % 0.0 Sodium 142 Potassium 3.8 Chloride 112 H Carbon Dioxide 23 Anion Gap 7.0 BUN 26 H Creatinine 0.8 Estimated GFR (MDRD) 74 L Glucose 135 H Lactic Acid 1.5 Calcium 9.3 Total Bilirubin 0.3 AST 21 ALT 18 Alkaline Phosphatase 59 Total Protein 6.4 L Albumin 3.8 Globulin 2.6 Albumin/Globulin Ratio 1.5 Lipase 28 TSH Urine Color Urine Clarity Urine pH Ur Specific [place] Urine Protein Urine Glucose (UA) Urine Ketones Urine Occult Blood Urine Nitrite Urine Bilirubin Urine Urobilinogen Ur Leukocyte Esterase Urine RBC Urine WBC Ur Squamous Epith Cells Urine Bacteria Urine Casts Ur Microscopic Review Urine Culture Comments 05/06/19 05/06/19 14:45 15:50 WBC RBC Hgb Hct MCV MCH MCHC RDW Plt Count MPV Neut # (Auto) Lymph # (Auto) [place]ick # (Auto) Eos # (Auto) Baso # (Auto) Absolute Nucleated RBC Nucleated RBC % Sodium Potassium Chloride Carbon Dioxide Anion Gap BUN Creatinine Estimated GFR (MDRD) Glucose Lactic Acid Calcium Total Bilirubin AST ALT Alkaline Phosphatase Total Protein Albumin Globulin Albumin/Globulin Ratio Lipase TSH 1.30 Urine Color YELLOW Urine Clarity HAZY Urine pH 7.0 Ur Specific [place] 1.020 Urine Protein 30 H Urine Glucose (UA) NEGATIVE Urine Ketones NEGATIVE Urine Occult Blood TRACE-INTA Urine Nitrite NEGATIVE Urine Bilirubin NEGATIVE Urine Urobilinogen 0.2 (NORMAL) Ur Leukocyte Esterase NEGATIVE Urine RBC 0-5 Urine WBC 0-3 Ur Squamous Epith Cells MOD Squamous H Urine Bacteria Rare Urine Casts 0-2 Hyaline Casts Ur Microscopic Review INDICATED Urine Culture Comments NOT INDICATED PD MEDICAL DECISION MAKING - ED course ED course: 58-year-old woman with history of Crohn's disease presents with diarrhea and cara e other symptoms that could be due to dehydration. Her BUN is significantly elevated, higher than she is ever had before. She also had a significant headache, cranial imaging was negative. Feeling better after some medication for her headache and 2 L of IV crystalloid. Departure - Departure Disposition: 01 Home, Self Care Clinical Impression: Dehydration Headache Qualifiers: Headache type: tension-type Headache chronicity pattern: acute headache Intractability: not intractable Qualified Code(s): G44.209 - Tension-type headache, unspecified, not intractable Condition: Good Instructions: ED Cephalgia Unspecified Prescriptions: Butalb/Acetaminophen/Caffeine [Fioricet 50-300-40 mg Capsule] 1 each PO Q4HR PRN #10 capsule PRN Reason: Headache Loperamide [Imodium] 2 mg PO QID PRN #10 capsule PRN Reason: Diarrhea Comments: I am prescribing his medications for your headache and also the diarrhea. Drink plenty of fluids, return for new or worsening symptoms. Follow-up with your doctor, next available appointment. Discharge Date/Time: 05/06/19 17:49
[2019-05-06 15:01] LABS: BASOPHILS % (AUTO) 0.3 %; EOSINOPHILS % (AUTO) 0.3 %; LYMPHOCYTES % (AUTO) 8.1 %; MEAN CORPUSCULAR HEMOGLOBIN 31.6 pg (27.0-31.0); MEAN CORPUSCULAR HGB CONC 32.7 g/dL (32.0-36.0); MEAN CORPUSCULAR VOLUME 96.6 fL (81.0-99.0); MEAN PLATELET VOLUME 8.7 fL (7.9-10.8); MONOCYTES # (AUTO) 0.9 10^3/uL (0.0-1.0); MONOCYTES % (AUTO) 7.8 %; NEUTROPHILS # (AUTO) 9.8 10^3/uL (1.5-6.6); NEUTROPHILS % (AUTO) 83.1 %; PLT - PLATELET COUNT 233 10^3/uL (130-450); RED CELL DISTRIBUTION WIDTH 13.4 % (12.0-15.0); WHITE BLOOD COUNT 11.8 x10^3/uL (4.8-10.8)
[2019-05-06 15:19] LABS: ALBUMIN 3.8 g/dL (3.2-5.5); ALBUMIN/GLOBULIN RATIO 1.5 (1.0-2.2); BILIRUBIN,TOTAL 0.3 mg/dL (0.2-1.0); CALCIUM 9.3 mg/dL (8.5-10.3); CREATININE 0.8 mg/dL (0.4-1.0); TOTAL PROTEIN 6.4 g/dL (6.7-8.2)
--- NOTE | 2019-05-06 15:35 | CT Report ---
Reason: headache Procedure Date: 05/06/2019 Accession Number: [id number] / [id number] Procedure: CT - HEAD WO CPT Code: Final Report FULL RESULT: EXAM: CT HEAD EXAM DATE: 05/06/2019 03:09 PM. CLINICAL HISTORY: Headache. COMPARISON: None. TECHNIQUE: Multiaxial CT images were obtained from the foramen magnum to the vertex. Reformats: Sagittal and coronal. IV contrast: None. In accordance with CT protocol optimization, one or more of the following dose reduction techniques were utilized for this exam: automated exposure control, adjustment of mA and/or KV based on patient size, or use of iterative reconstructive technique. FINDINGS: Parenchyma: No intraparenchymal hemorrhage. No evidence of mass, midline shift, or CT findings of infarction. Rivas-white differentiation is distinct. Extraaxial Spaces: Normal for age. No subdural or epidural collections identified. Ventricles: Normal in size and position. Sinuses and Orbits: Imaged paranasal sinuses, orbits, and mastoids show no significant abnormality. Bones: No evidence of fracture or calvarial defect. Other: None. IMPRESSION: Normal head CT. RADIA
[2019-05-06] MEDS ORDERED: ONDANSETRON 4 MG/2 ML VIAL IVP STA (15:46)
[2019-05-06] MEDS ORDERED: LACTATED RINGERS 1,000 ML IV STA (15:52)
[2019-05-06 16:03] LABS: BILIRUBIN,URINE NEGATIVE (NEGATIVE); GLUCOSE, URINE (UA) NEGATIVE (NEGATIVE); KETONES,URINE (UA) NEGATIVE (NEGATIVE); LEUKOCYTE ESTERASE, URINE NEGATIVE (NEGATIVE); NITRITE,URINE NEGATIVE (NEGATIVE); OCCULT BLOOD,URINE TRACE-INTA (NEGATIVE); PROTEIN,URINE 30 mg/dL (NEGATIVE); UROBILINOGEN,URINE 0.2 (NORMAL) E.U./dL (NORMAL)
[2019-05-06 16:04] LABS: CLARITY,URINE HAZY (CLEAR)
[2019-05-06 16:13] LABS: BACTERIA,URINE Rare /HPF (None Seen); CASTS, URINE 0-2 Hyaline Casts /LPF; RBC,URINE 0-5 /HPF (0-5); SQUAMOUS EPITHELIAL CELL,UR MOD Squamous (<= Few)
[2019-05-06] MEDS ORDERED: KETOROLAC 30 MG/ML VIAL IVP STA (16:15)
[2019-05-06] MEDS ORDERED: METOCLOPRAMIDE 10 MG/2 ML VIAL IVP STA (16:59)
[2019-05-06 17:13] VITALS: BP 111/41
== END 2019-05-06 17:49 | disposition home or self-care (01) ==
LOC: EDUNIT# → EDBD → ED 14:38
DX: E86.0 Dehydration (principal); G44.209 Tension-type headache, unspecified, not intractable
CPT/HCPCS: 36415; 70450; 80053; 81001; 83605; 83690; 84443; 85025; 87040; 93005; 96361; 96374; 96375; 99284; 99285; J2765; J7120; 81003; 87086

== ENCOUNTER 2019-05-14 15:04 | Outpatient (CLI) | payer MEDICAID ==
[2019-05-14 18:24] LABS: BASOPHILS # (AUTO) 0.1 10^3/uL (0.0-0.1); BASOPHILS % (AUTO) 1.2 %; EOSINOPHILS # (AUTO) 0.1 10^3/uL (0.0-0.7); EOSINOPHILS % (AUTO) 1.3 %; HGB - HEMOGLOBIN 13.5 g/dL (12.0-16.0); LYMPHOCYTES # (AUTO) 2.1 10^3/uL (1.5-3.5); LYMPHOCYTES % (AUTO) 34.8 %; MEAN CORPUSCULAR HEMOGLOBIN 31.5 pg (27.0-31.0); MEAN CORPUSCULAR VOLUME 98.4 fL (81.0-99.0); MEAN PLATELET VOLUME 9.7 fL (7.9-10.8); MONOCYTES # (AUTO) 0.5 10^3/uL (0.0-1.0); MONOCYTES % (AUTO) 7.9 %; NEUTROPHILS # (AUTO) 3.3 10^3/uL (1.5-6.6); NEUTROPHILS % (AUTO) 54.5 %; PLT - PLATELET COUNT 282 10^3/uL (130-450); RED BLOOD COUNT 4.29 10^6/uL (4.20-5.40); RED CELL DISTRIBUTION WIDTH 12.9 % (12.0-15.0)
[2019-05-14 18:37] LABS: CALCIUM 9.6 mg/dL (8.5-10.3); CREATININE 0.7 mg/dL (0.4-1.0)
== END 2019-05-14 23:59 | disposition home or self-care (01) ==
LOC: LAB.N 15:04
PROVIDERS: ATTEND Physician Assistant Medical
DX: E86.1 Hypovolemia (principal); E86.0 Dehydration
CPT/HCPCS: 36415; 80048; 85025

== ENCOUNTER 2019-11-13 17:23 | Outpatient (CLI) | payer MEDICAID | END 2019-11-13 17:24 | disposition home or self-care (01) | LOC: COV 17:23 | PROVIDERS: ATTEND Family Medicine | DX: R05 Cough (principal); R06.02 Shortness of breath; R53.83 Other fatigue; J02.9 Acute pharyngitis, unspecified | CPT/HCPCS: 81599 ==

== ENCOUNTER 2019-12-13 14:11 | Outpatient (CLI) | payer MEDICAID ==
--- NOTE | 2019-12-13 17:14 | XRAY Report ---
PROCEDURE: Pelvis 1 View INDICATIONS: LOW BACK PAIN TECHNIQUE: 1 view(s) of the pelvis acquired. COMPARISON: None. FINDINGS: Bones: No fractures or dislocations. No suspicious bony lesions. Lower lumbar spine degenerative di sc changes. Mild osteoarthritic degenerative changes are noted in the inferior margins of the sacroil iac joints. Soft tissues: Visualized bowel gas pattern is normal. No suspicious soft tissue calcifications. IMPRESSION: 1. Lower lumbar spine degenerative disc changes. 2. Mild bilateral sacroiliac joint osteoarthritis.. Reviewed by: Mahsa Zhang MD, PhD on 12/13/2019 5:13 PM PDT Approved by: Mahsa Zhang MD, PhD on 12/13/2019 5:13 PM PDT Station ID: [id number]
== END 2019-12-13 14:12 | disposition home or self-care (01) ==
LOC: DI 14:11
PROVIDERS: ATTEND Pain Medicine Pain Medicine
DX: M51.36 Other intervertebral disc degeneration, lumbar region (principal); M47.818 Spondylosis without myelopathy or radiculopathy, sacral and sacrococcygeal region
CPT/HCPCS: 72170

== ENCOUNTER 2020-01-23 15:20 | Outpatient (CLI) | payer MEDICAID ==
--- NOTE | 2020-01-23 17:55 | XRAY Report ---
PROCEDURE: Lumbar Spine w/Flex/Ext INDICATIONS: LOW BACK PAIN TECHNIQUE: 6 views of the lumbar spine acquired. COMPARISON: None. FINDINGS: Bones: 5 [id number] vertebrae are present. There is mild L1-L2 retrolisthesis. There is convex left curvature of the thoracolumbar junction. No vertebral body compression fractures. No suspiciou s bony lesions. Moderate L1-L2 and L2-L3 degenerative disc disease. Mild L3-L4, L4-L5 and L5-S1 dege nerative disc disease. Mild L4-L5 and L5-S1 facet arthropathy. Soft tissues: Overlying bowel gas pattern is normal. No suspicious soft tissue calcifications. Obliques: No pars defects. Flexion/extension: There is limited range of motion. There is reduction of mild L1-L2 retrolisthesis in the flexed position. No vertebral body motion identified in the extended position. IMPRESSION: 1. Multilevel degenerative disc disease. 2. Multilevel facet arthropathy. 3. Mild L1-L2 retrolisthesis which reduces the flexed position. 4. Limited range of motion in both the flexed and extended positions. 5. No fracture. No acute osseous lesion. If there is continued clinical concern for pathology, then M RI should be considered for further evaluation. Reviewed by: Mahsa Zhang MD, PhD on 01/23/2020 5:54 PM PDT Approved by: Mahsa Zhang MD, PhD on 01/23/2020 5:54 PM PDT Station ID: [id number]
--- NOTE | 2020-01-23 17:59 | XRAY Report ---
PROCEDURE: Thoracic Spine 3 View INDICATIONS: LOW BACK PAIN TECHNIQUE: 3 views of the thoracic spine were acquired. COMPARISON: 08/02/2017. FINDINGS: Bones: No fractures or dislocations. There is normal alignment of the vertebral bodies. There is neto roximately 12 degrees of convex left thoracolumbar spine scoliosis. No suspicious bony lesions. 12 p airs of ribs are noted, and appear intact where visualized. Moderate degenerative disc changes noted throughout the thoracic spine. Physiologic wedging of the T4, T5, T6, T7, T8-T9, T10 and T11 vertebra l bodies. Soft tissues: No paravertebral stripe thickening. IMPRESSION: 1. Moderate multilevel degenerative disc disease. 2. Convex left lumbar spine scoliosis. 3. Multilevel physiologic wedging with accentuation of thoracic kyphosis. 4. No fracture. No acute osseous lesion. If there is continued clinical concern for pathology, then M RI should be considered for further evaluation. Reviewed by: Mahsa Zhang MD, PhD on 01/23/2020 5:57 PM PDT Approved by: Mahsa Zhang MD, PhD on 01/23/2020 5:57 PM PDT Station ID: [id number]
== END 2020-01-23 15:21 | disposition home or self-care (01) ==
LOC: DI 15:20
PROVIDERS: ATTEND Pain Medicine Pain Medicine
DX: M43.16 Spondylolisthesis, lumbar region (principal); M51.36 Other intervertebral disc degeneration, lumbar region; M51.37 Other intervertebral disc degeneration, lumbosacral region; M47.816 Spondylosis without myelopathy or radiculopathy, lumbar region; M47.817 Spondylosis without myelopathy or radiculopathy, lumbosacral region
CPT/HCPCS: 72072; 72114

== ENCOUNTER 2020-04-30 13:40 | Outpatient (CLI) | payer MEDICAID ==
[2020-04-30 18:32] LABS: BASOPHILS % (AUTO) 0.6 %; EOSINOPHILS # (AUTO) 0.1 10^3/uL (0.0-0.7); EOSINOPHILS % (AUTO) 1.6 %; HGB - HEMOGLOBIN 12.6 g/dL (12.0-16.0); LYMPHOCYTES # (AUTO) 1.6 10^3/uL (1.5-3.5); LYMPHOCYTES % (AUTO) 30.8 %; MEAN CORPUSCULAR HEMOGLOBIN 30.5 pg (27.0-31.0); MEAN CORPUSCULAR VOLUME 98.3 fL (81.0-99.0); MEAN PLATELET VOLUME 9.6 fL (7.9-10.8); MONOCYTES # (AUTO) 0.3 10^3/uL (0.0-1.0); MONOCYTES % (AUTO) 6.7 %; NEUTROPHILS % (AUTO) 59.9 %; PLT - PLATELET COUNT 248 10^3/uL (130-450); RED BLOOD COUNT 4.13 10^6/uL (4.20-5.40); RED CELL DISTRIBUTION WIDTH 13.3 % (12.0-15.0)
[2020-04-30 19:01] LABS: ALBUMIN 4.1 g/dL (3.2-5.5); ALBUMIN/GLOBULIN RATIO 1.4 (1.0-2.2); ALKALINE PHOSPHATASE 68 IU/L (42-121); ALT ALANINE AMINOTRANSFERASE 14 IU/L (10-60); AST ASPARTATE AMINOTRANSFERASE 16 IU/L (10-42); BILIRUBIN,TOTAL 0.6 mg/dL (0.2-1.0); BUN - BLOOD UREA NITROGEN 13 mg/dL (6-20); CALCIUM 9.6 mg/dL (8.5-10.3); CARBON DIOXIDE - CO2 26 mmol/L (21-32); CHLORIDE 109 mmol/L (101-111); CHOLESTEROL 251 mg/dL; CREATININE 0.7 mg/dL (0.4-1.0); GLUCOSE 93 mg/dL (70-100); HDL CHOLESTEROL 62 mg/dL; LDL CHOLESTEROL,CALCULATED 163 mg/dL; LDL/HDL RATIO 2.6 (<4.4); SODIUM 142 mmol/L (135-145); VLDL CHOLESTEROL 26 mg/dL
== END 2020-04-30 23:59 | disposition home or self-care (01) ==
LOC: LAB.WCP 13:40
PROVIDERS: ATTEND Family Medicine
DX: E04.2 Nontoxic multinodular goiter (principal)
CPT/HCPCS: 36415; 80053; 80061; 83721; 84443; 85025

== ENCOUNTER 2020-07-13 13:46 | Outpatient (CLI) | payer MEDICAID ==
--- NOTE | 2020-07-13 20:20 | XRAY Report ---
PROCEDURE: Knee 3 View RT INDICATIONS: R KNEE PX TECHNIQUE: 3 views of the right knee(s) were acquired. COMPARISON: 09/17/2018. FINDINGS: Bones: No acute fractures or dislocations. Status post right total knee arthroplasty. Interval incre ase in periprosthetic osseous lucency overlying the medial femoral condyle measuring approximately 5 mm. There is also increased lucency at the bone cement interface involving the medial tibial plateau, measuring approximately 6 mm. Stable lucency over the hardware cement interface of the distal tibial hardware component. No suspicious bony lesions. Soft tissues: No joint effusion. No suspicious soft tissue calcifications. IMPRESSION: Right knee without acute osseous abnormalities. Findings consistent with hardware loosening predominantly over the medial femoral condyle and medial tibial plateau as described above. Although infection hardware may have a similar appearance this is not to be unlikely if symptoms are chronic. However, recommend excluding clinical symptoms of infecti on. Reviewed by: Dion Gar MD on 07/13/2020 7:19 PM [place] Approved by: Dion Gar MD on 07/13/2020 7:19 PM [facility] Station ID: [id number]
== END 2020-07-13 23:59 | disposition home or self-care (01) ==
LOC: DI.N 13:46
PROVIDERS: ATTEND Family Medicine
DX: M25.561 Pain in right knee (principal); T84.032A Mechanical loosening of internal right knee prosthetic joint, initial encounter

== ENCOUNTER 2020-07-16 10:23 | Outpatient (CLI) | payer MEDICAID | END 2020-07-16 10:24 | disposition home or self-care (01) | LOC: LAB.N 10:23 | PROVIDERS: ATTEND Physician Assistant | DX: M25.561 Pain in right knee (principal) | CPT/HCPCS: 36415; 85651; 86140 ==

== ENCOUNTER 2020-08-12 14:34 | Outpatient (CLI) | payer MEDICAID ==
--- NOTE | 2020-08-12 15:50 | CT Report ---
PROCEDURE: LOWER EXTREMITY WO - RT INDICATIONS: RIGHT KNEE TKA, HARDWARE LOOSENING. TECHNIQUE: Noncontrast 3 mm axial sections acquired of the knee, with coronal and sagittal reformats. COMPARISON: None. FINDINGS: Image quality: Degraded by metallic artifact. Bones: Status post tricompartmental knee arthroplasty. Hardware components are intact. There is no e vidence of abnormal lucency between the hardware components and the osseous structures to indicate lo osening. Soft tissues: No soft tissue fluid collections. Visualized muscles are within normal limits. IMPRESSION: Expected appearance of knee arthroplasty. Three-phase bone scan may be helpful to assess for loosenin g/infection. Reviewed by: Lima Mejia MD on 08/12/2020 3:48 PM PST Approved by: Lima Mejia MD on 08/12/2020 3:48 PM PST Station ID: [id number]
== END 2020-08-12 14:35 | disposition home or self-care (01) ==
LOC: DI 14:34
PROVIDERS: ATTEND Physician Assistant
DX: M25.561 Pain in right knee (principal); Z96.651 Presence of right artificial knee joint

== ENCOUNTER 2021-02-21 16:05 | Outpatient (CLI) | payer MEDICAID | END 2021-02-21 16:06 | disposition EMS.NT | LOC: EMS 16:05 | DX: Z03.89 Encounter for observation for other suspected diseases and conditions ruled out (principal) ==

== ENCOUNTER 2021-04-05 18:15 | Observation (INO) | payer MEDICAID ==
[2021-04-05] MEDS ORDERED: SODIUM CHLORIDE 0.9% 1,000 ML IV STA (20:22)
--- NOTE | 2021-04-05 20:24 | ED Physician Documentation ---
History of Present Illness - Stated complaint Stated Complaint: DIZZY,SOA,RIB PX, - Chief complaint Chief Complaint: Resp - History obtained from History obtained from: Patient - History of Present Illness Timing: How many weeks ago (several weeks) Pain level max: 0 Pain level now: 0 - Additonal information Additional information: Patient is a 60-year-old female who presents to the emergency department stating that she has felt lightheaded frequently over the past several weeks. She states that when she stands up she feels very lightheaded like she is going to pass out. She states that in the shower today she could not finish her shower as she felt like she was going to syncopized. She states she got out of the shower laid down on the her friend in case she passed out. Has not had similar symptoms previously. Does not feel like her prior episodes of vertigo. There is no room spinning. She states occasionally she has sharp chest pain as well. No current chest pain. No recent travel or surgeries. Denies any blood in the stool. Did have an episode of anemia in 2017 after a knee surgery, negative colonoscopy and endoscopy other than a hiatal hernia. Review of Systems Ten Systems: 10 systems reviewed and negative Constitutional: denies: Fever, Chills Ears: denies: Ear pain Nose: denies: Rhinorrhea / runny nose, Congestion GI: denies: Nausea, Vomiting, Diarrhea Skin: denies: Rash Musculoskeletal: denies: Neck pain, Back pain Neurologic: denies: Headache PD PAST MEDICAL HISTORY - Past Medical History Past Medical History: Yes Cardiovascular: None Respiratory: None Endocrine/Autoimmune: HyPOthyroidism GI: GI bleed : None HEENT: Chronic sinusitis Psych: Claustrophobia Musculoskeletal: Osteoarthritis, Chronic back pain Derm: None - Past Surgical History Past Surgical History: Yes Ortho: Knee replacement - Present Medications Home Medications: Ambulatory Orders Medication Instructions Recorded Confirmed Calcium Carbonate/Vitamin D3 1 each PO DAILY 11/23/16 04/05/21 [Calcium 600 + Vit D 400 Tablet] Glucosam/Chondr-Msm6/Manganese 1 each PO DAILY 11/23/16 04/05/21 [Glucosamine-Chondroitin Sftgl] Sennosides/Docusate Sodium [Stool 1 each PO DAILY 11/23/16 04/05/21 Softener-Stimulant Lax] Vitamin D3/Folic Acid [Folixapure 5,000 unit PO DAILY 11/23/16 04/05/21 Tablet] Topiramate [Topamax] 100 mg PO BID 12/05/16 04/05/21 oxyCODONE [Roxicodone] 10 mg PO DAILY 12/05/16 04/05/21 Folic Acid 1 tab PO DAILY 02/18/17 05/17/17 Ascorbic Acid [Vitamin C] 500 mg PO 05/06/19 05/06/19 Butalb/Acetaminophen/Caffeine 1 each PO Q4HR PRN #10 capsule 05/06/19 04/05/21 [Fioricet 50-300-40 mg Capsule] Ferrous Gluconate [Iron] 240 mg PO 05/06/19 Loperamide [Imodium] 2 mg PO QID PRN #10 capsule 05/06/19 04/05/21 - Allergies Allergies/Adverse Reactions: Allergies Allergy/AdvReac Type Severity Reaction Status Date / Time No Known Drug Allergies Allergy Verified 04/05/21 18:32 - Social History Does the pt smoke?: No Smoking Status: Never smoker Does the pt drink ETOH?: Yes Does the pt have substance abuse?: No PD ED PE NORMAL - Vitals Vital signs reviewed: Yes - General General: Alert and oriented X 3, No acute distress, Well developed/nourished - HEENT HEENT: PERRL, Moist mucous membranes - Neck Neck: Supple, no meningeal sign - Cardiac Cardiac: RRR, Strong equal pulses - Respiratory Respiratory: No respiratory distress, Clear bilaterally - Abdomen Abdomen: Soft, Non tender, Non distended - Rectal Rectal: Pt declined - Derm Derm: Warm and dry - Extremities Extremities: No edema, No calf tenderness / cord - Neuro Neuro: Alert and oriented X 3 - Psych Psych: Normal mood, Normal affect Results - Vitals Vitals: Vital Signs - 24 hr 04/05/21 04/05/21 04/05/21 18:29 19:24 20:55 Temperature 37 C 37 C Heart Rate 84 84 Heart Rate [ 70 Sitting] Heart Rate [ 69 Standing] Heart Rate [ 56 L Supine] Respiratory 18 18 Rate Blood Pressure 129/73 129/74 Blood Pressure 119/63 [Sitting] Blood Pressure 123/72 [Standing] Blood Pressure 116/56 L [Supine] O2 Saturation 97 97 04/05/21 21:00 Temperature Heart Rate 80 Heart Rate [ Sitting] Heart Rate [ Standing] Heart Rate [ Supine] Respiratory 18 Rate Blood Pressure 125/63 Blood Pressure [Sitting] Blood Pressure [Standing] Blood Pressure [Supine] O2 Saturation 100 Oxygen O2 Source Room air - EKG (time done) 2027 Rate: Rate (enter#) (61) Rhythm: NSR Keiser: Normal Intervals: Normal [place] QRS: Normal Ischemia: Normal ST segments - Labs Labs: Laboratory Tests 04/05/21 04/05/21 04/05/21 20:27 20:38 20:38 WBC 6.7 RBC 3.07 L Hgb 7.0 L* Hct 24.3 L MCV 79.2 L MCH 22.8 L MCHC 28.8 L RDW 17.2 H Plt Count 348 MPV 8.4 Neut # (Auto) 4.0 Lymph # (Auto) 1.8 Bland # (Auto) 0.7 Eos # (Auto) 0.1 Baso # (Auto) 0.1 Absolute Nucleated RBC 0.00 Nucleated RBC % 0.0 Manual Slide Review Indicated WBC Morphology NORMAL CHRISTINA Platelet Estimate NORMAL (130-450,000) Platelet Morphology NORMAL APPEARANCE RBC Morph Micro Appear 1+ HYPOCHROMASIA PT INR APTT D-Dimer 277.2 H Sodium Potassium Chloride Carbon Dioxide Anion Gap BUN Creatinine Estimated GFR (MDRD) Glucose Calcium Total Bilirubin AST ALT Alkaline Phosphatase Troponin I High Sens Total Protein Albumin Globulin Albumin/Globulin Ratio Lipase Nasal Adenovirus (PCR) NOT DETECTED Nasal B. parapertussis DNA (PCR) NOT DETECTED Nasal Coronavir 229E PCR NOT DETECTED Nasal Coronavir HKU1 PCR NOT DETECTED Nasal Coronavir NL63 PCR NOT DETECTED Nasal Coronavir OC43 PCR NOT DETECTED Nasal Enterovir/Rhinovir PCR NOT DETECTED Nasal Influenza B PCR NOT DETECTED Nasal Influenza A PCR NOT DETECTED Nasal Parainfluen 1 PCR NOT DETECTED Nasal Parainfluen 2 PCR NOT DETECTED Nasal Parainfluen 3 PCR NOT DETECTED Nasal Parainfluen 4 PCR NOT DETECTED Nasal RSV (PCR) NOT DETECTED Nasal B.pertussis DNA PCR NOT DETECTED Nasal C.pneumoniae (PCR) NOT DETECTED Carmelo Human Metapneumo PCR NOT DETECTED Nasal M.pneumoniae (PCR) NOT DETECTED Nasal SARS-CoV-2 (PCR) NOT DETECTED 04/05/21 04/05/21 04/05/21 20:38 20:38 20:38 WBC RBC Hgb Hct MCV MCH MCHC RDW Plt Count MPV Neut # (Auto) Lymph # (Auto) Bland # (Auto) Eos # (Auto) Baso # (Auto) Absolute Nucleated RBC Nucleated RBC % Manual Slide Review WBC Morphology Platelet Estimate Platelet Morphology RBC Morph Micro Appear PT 11.2 INR 1.0 APTT 26.7 D-Dimer Sodium 142 Potassium 3.8 Chloride 107 Carbon Dioxide 26 Anion Gap 9.0 BUN 26 H Creatinine 0.9 Estimated GFR (MDRD) 64 L Glucose 106 H Calcium 9.8 Total Bilirubin 0.4 AST 15 ALT 14 Alkaline Phosphatase 60 Troponin I High Sens < 2.3 L Total Protein 6.8 Albumin 4.2 Globulin 2.6 Albumin/Globulin Ratio 1.6 Lipase 35 Nasal Adenovirus (PCR) Nasal B. parapertussis DNA (PCR) Nasal Coronavir 229E PCR Nasal Coronavir HKU1 PCR Nasal Coronavir NL63 PCR Nasal Coronavir OC43 PCR Nasal Enterovir/Rhinovir PCR Nasal Influenza B PCR Nasal Influenza A PCR Nasal Parainfluen 1 PCR Nasal Parainfluen 2 PCR Nasal Parainfluen 3 PCR Nasal Parainfluen 4 PCR Nasal RSV (PCR) Nasal B.pertussis DNA PCR Nasal C.pneumoniae (PCR) Carmelo Human Metapneumo PCR Nasal M.pneumoniae (PCR) Nasal SARS-CoV-2 (PCR) - Rads (name of study) cxr Radiology: Final report received, EMP read contemporaneously, See rad report (No acute abnormality) PD MEDICAL DECISION MAKING - ED course Complexity details: reviewed results, re-evaluated patient, considered differential (No ST elevation LA, no aortic dissection, no PE, no tension pneumothorax, no aortic aneurysm), d/w patient, d/w senior safety management consultant ED course: Patient appears to be suffering from symptomatic anemia. Unclear etiology of her anemia. Has had a negative EGD and colonoscopy in the past with no acute findings other than a hiatal hernia. She denies any blood in the stool. We will place the patient in observation for blood transfusion and further care. Patient is clearly symptomatic with this and unable to complete a shower without nearly passing out. Discussed the case with Dr. Perez, hospitalist who accepts This document was made in part using voice recognition software. While efforts are made to proofread this document, sound alike and grammatical errors may occur. Departure - Departure Disposition: ED Place in Observation Clinical Impression: Symptomatic anemia Condition: Stable
[2021-04-05 20:46] LABS: BASOPHILS # (AUTO) 0.1 10^3/uL (0.0-0.1); BASOPHILS % (AUTO) 1.2 %; EOSINOPHILS # (AUTO) 0.1 10^3/uL (0.0-0.7); EOSINOPHILS % (AUTO) 1.6 %; HCT - HEMATOCRIT 24.3 % (37.0-47.0); LYMPHOCYTES # (AUTO) 1.8 10^3/uL (1.5-3.5); LYMPHOCYTES % (AUTO) 27.2 %; MEAN CORPUSCULAR HEMOGLOBIN 22.8 pg (27.0-31.0); MEAN CORPUSCULAR HGB CONC 28.8 g/dL (32.0-36.0); MEAN CORPUSCULAR VOLUME 79.2 fL (81.0-99.0); MEAN PLATELET VOLUME 8.4 fL (7.9-10.8); MONOCYTES # (AUTO) 0.7 10^3/uL (0.0-1.0); NEUTROPHILS % (AUTO) 59.7 %; PLT - PLATELET COUNT 348 10^3/uL (130-450); RED BLOOD COUNT 3.07 10^6/uL (4.20-5.40); RED CELL DISTRIBUTION WIDTH 17.2 % (12.0-15.0); WHITE BLOOD COUNT 6.7 x10^3/uL (4.8-10.8)
[2021-04-05 20:50] LABS: SLIDE REVIEW? Indicated
--- NOTE | 2021-04-05 20:56 | XRAY Report ---
PROCEDURE: Chest 1 View X-Ray INDICATIONS: Chest Pain TECHNIQUE: One view of the chest was acquired. COMPARISON: 12/08/2016 FINDINGS: Surgical changes and devices: None. Lungs and pleura: No pleural effusions or pneumothorax. Lungs are clear. Prominent hiatal hernia a s before. Mediastinum: Mediastinal contours appear normal. Heart size is normal. Bones and chest wall: No suspicious bony lesions. Overlying soft tissues appear unremarkable. IMPRESSION: Stable examination of the chest without acute cardiopulmonary abnormalities. No focal airspace diseas e. Reviewed by: Dion Gar MD on 04/05/2021 8:55 PM PDT Approved by: Dion Gar MD on 04/05/2021 8:55 PM PDT Station ID: [id number]
[2021-04-05 21:00] LABS: ALBUMIN 4.2 g/dL (3.2-5.5); ALBUMIN/GLOBULIN RATIO 1.6 (1.0-2.2); BILIRUBIN,TOTAL 0.4 mg/dL (0.2-1.0); CALCIUM 9.8 mg/dL (8.5-10.3); CREATININE 0.9 mg/dL (0.4-1.0); POTASSIUM 3.8 mmol/L (3.5-5.0); TOTAL PROTEIN 6.8 g/dL (6.7-8.2)
[2021-04-05 21:16] LABS: PT - PROTHROMBIN TIME 11.2 secs (9.9-12.6)
[2021-04-05 21:23] LABS: PARTIAL THROMBOPLASTIN TIME 26.7 secs (24.9-33.3)
[2021-04-05 21:27] LABS: RBC MORPHOLOGY (MULTIPLE) 1+ HYPOCHROMASIA (NORMAL)
[2021-04-05 21:28] LABS: PLATELET ESTIMATE, MANUAL NORMAL (130-450,000) (NORMAL); PLATELET MORPHOLOGY NORMAL APPEARANCE (NORMAL); WBC MORPHOLOGY (MULTIPLE) NORMAL APP (NORMAL)
[2021-04-05] MEDS ORDERED: ACETAMINOPHEN 325 MG TABLET PO ONE (21:59)
[2021-04-05] MEDS ORDERED: diphenhydrAMINE 25 MG CAPSULE PO ONE (22:00)
[2021-04-05] MEDS ORDERED: ONDANSETRON 4 MG/2 ML VIAL IVP PRN (22:01)
[2021-04-05] MEDS ORDERED: SODIUM CHLORIDE FLUSH 0.9% 10 ML SYRINGE IVP PRN (22:01)
--- NOTE | 2021-04-05 22:06 | HISTORY & PHYSICAL EXAMINATION ---
Chief Complaint - Chief Complaint Chief Complaint: Near syncope and fatigue/lethargy. History of Present Illness - Admitted From Admitted From:: ED - History Obtained From History obtained from: ED provider and the patient - History of Present Illness HPI Comment/Other: This is a 60-year-old white female with a remote history of prior anemia and w/u then with EGD found hiatal hernia and colonoscopy findings were negative. She has a histyory of arthritis and chronic back pain from bulging discs. For the last 2-3 weeks she has noticed fatigue, lethargy and dizziness when getting up quickly. Today the patient presented to the emergency room complaining of severe dizziness and had near syncope, which occurred while she was taking a shower. It was so severe that she had to stop and lay down on her mattress for relief. She was afraid she might black out completely and therefore called a friend, and wanted her to stay on the phone until she got relief from the severe dizziness. In the ED her vital signs were stable but labs show a hemoglobin of 7. She has not noticed any melena, and there has been no vomiting. She does admit to epigastric pressure feelings after eating over the last several weeks. She also admits to odynophagia and describes that food "gets stuck" and she sometimes has to cough it up or uses multiple sips of water to push the food glenis us down. She has no eaten steak or chicken for months because of these feelings. She is being placed in Observation status to receive a blood transfusion and on telemetry and to check orthostatic vital signs given the complaint of dizziness. History - Past Medical History Cardiovascular: reports: None Respiratory: reports: None GI: reports: GI bleed : reports: None HEENT: reports: Chronic sinusitis Psych: reports: Claustrophobia Musculoskeletal: reports: Osteoarthritis, Chronic back pain Derm: reports: None MRSA Hx?: No - Past Surgical History Ortho: reports: Knee replacement - Family & Social History Living arrangement: At home Living Situation: Alone Social History Notes: She lives alone. She is a non-smoker who never smoked. She drinks alcohol socially. No illicit drug use history. - Substance History Use: Uses substance without health or social issues: Alcohol Meds/Allgy - Home Medications Home Medications: Ambulatory Orders Medication Instructions Recorded Confirmed Calcium Carbonate/Vitamin D3 1 each PO DAILY 11/23/16 04/05/21 [Calcium 600 + Vit D 400 Tablet] Glucosam/Chondr-Msm6/Manganese 1 each PO DAILY 11/23/16 04/05/21 [Glucosamine-Chondroitin Sftgl] Sennosides/Docusate Sodium [Stool 1 each PO DAILY 11/23/16 04/05/21 Softener-Stimulant Lax] Vitamin D3/Folic Acid [Folixapure 5,000 unit PO DAILY 11/23/16 04/05/21 Tablet] Topiramate [Topamax] 100 mg PO BID 12/05/16 04/05/21 oxyCODONE [Roxicodone] 10 mg PO DAILY 12/05/16 04/05/21 Folic Acid 1 tab PO DAILY 02/18/17 05/17/17 Ascorbic Acid [Vitamin C] 500 mg PO 05/06/19 05/06/19 Butalb/Acetaminophen/Caffeine 1 each PO Q4HR PRN #10 capsule 05/06/19 04/05/21 [Fioricet 50-300-40 mg Capsule] Ferrous Gluconate [Iron] 240 mg PO 05/06/19 Loperamide [Imodium] 2 mg PO QID PRN #10 capsule 05/06/19 04/05/21 - Allergies Allergies/Adverse Reactions: Allergies Allergy/AdvReac Type Severity Reaction Status Date / Time No Known Drug Allergies Allergy Verified 04/05/21 18:32 Review of Systems - Constitutional Constitutional: reports: Fatigue, Weight loss (She has lost 25 to 35 pounds over the last year because of switching to a gluten-free diet) - Ears, Nose & Throat Ears, Nose & Throat: reports: Vertigo (Since having near syncope today, just turning her head from side to side makes her dizzy.) - Musculoskeletal Musculoskeletal: reports: Back pain (Chronic neck and low back pain, has bulging disks and arthritis. She needs a cane to walk.) - All Other Systems All Other Systems: reports: Reviewed and negative Exam - Vital Signs Reviewed Vital Signs: Yes Vital Signs: Vital Signs x48h Temp Pulse Pulse Pulse Pulse Resp BP 04/05/21 21:00 80 18 125/63 04/05/21 20:55 70 69 56 L 04/05/21 19:24 37 C 84 18 129/74 04/05/21 18:29 37 C 84 18 129/73 BP BP BP Pulse Ox 10/04/21 21:00 100 04/05/21 20:55 119/63 123/72 116/56 L 04/05/21 19:24 97 04/05/21 18:29 97 - Physical Exam General Appearance: positive: No acute distress, Alert Eyes Bilateral: positive: Normal inspection, EOMI ENT: positive: ENT inspection nml, No signs of dehydration Neck: positive: Nml inspection, No JVD Respiratory: positive: No respiratory distress, Breath sounds nml Cardiovascular: positive: Regular rate & rhythm, No murmur Abdomen: positive: Non-tender, Nml bowel sounds, Other (Obese) Skin: positive: Warm, Dry, Pallor Extremities: positive: Non-tender, No pedal edema Neurologic/Psychiatric: positive: Oriented x3 (Non-focal) Conclusion/Plan - Problem List (1) Symptomatic anemia Conclusion/Plan: Will order guaiac of stool and also check serum iron stores, B12 and folate levels. If guaiac of stool is positive then will consider a general surgery consult for EGD. Will order 1 unit of blood to be transfused. Follow H/H every 12 hours. Will not give Lovenox for DVT prophylaxis, in case of GI bleed, but will order compression hose. She was prescribed iron but admits to not taking it for about the last month. Will resume oral daily iron tablets. (2) Dizziness Conclusion/Plan: Description of dizziness occurred when she was in a warm shower (vasodilated) on top of having this underlying anemia. Will place her on telemetry to rule out any abnormal rhythm as a potential other cause of dizziness. Will also obtain daily orthostatic vital sign checks. (3) Odynophagia Conclusion/Plan: She describes symptoms that are concerning for esophageal stricture. She also has had recent epigastric pain after meals, has a history of hiatal hernia. This also is suspicious for an ulcer. Will order a soft, gluten-free diet. An EGD to evaluate for ulcer and for esophageal stricture would be helpful. (4) Arthritis Conclusion/Plan: We will continue her usual pain meds. None of these appear to be NSAIDs - Lab Results Fish Bones: 04/05/21 20:38 04/05/21 20:38
[2021-04-05 22:12] LABS: B. PARAPERTUSSIS- RESP PCR PAN NOT DETECTED; B. PERTUSSIS- RESP PCR PANEL NOT DETECTED; C. PNEUMONIAE- RESP PCR PANEL NOT DETECTED; CORONAVIRUS 229E-RESP PCR NOT DETECTED; CORONAVIRUS HKU1-RESP PCR NOT DETECTED; CORONAVIRUS NL63-RESP PCR NOT DETECTED; CORONAVIRUS OC43-RESP PCR NOT DETECTED; HUMAN METAPNEUMOVIRUS NOT DETECTED; INFLUENZA A- RESP PCR PANEL NOT DETECTED; INFLUENZA B - RESP PCR PANEL NOT DETECTED; M. PNEUMONIAE- RESP PCR PANEL NOT DETECTED; PARAINFLUENZA VIRUS 1 NOT DETECTED; PARAINFLUENZA VIRUS 2 NOT DETECTED; PARAINFLUENZA VIRUS 3 NOT DETECTED; PARAINFLUENZA VIRUS 4 NOT DETECTED; RHINOVIRUS/ENTEROVIRUS NOT DETECTED; RSV- RESP PCR PANEL NOT DETECTED; SARS-CoV-2 -RESP PCR PANEL NOT DETECTED
[2021-04-05 22:36] LABS: % IRON SATURATION 3 % (20-50); IRON 14 ug/dL (28-170); TOTAL IRON BINDING CAPACITY 538 ug/dL (250-450); TRANSFERRIN 384 mg/dL (192-382)
[2021-04-05] MEDS ORDERED: oxyCODONE 5 MG TABLET PO PRN (22:40)
[2021-04-05] MEDS ORDERED: SODIUM CHLORIDE 0.9% 1,000 ML IV SCH (23:00)
[2021-04-05] MEDS ORDERED: HYDROmorphone 0.5 MG/0.5 ML SYRINGE IVP STA (23:34)
[2021-04-06] MEDS: oxyCODONE 5 MG TABLET PO PRN ×4 (00:25→19:07)
[2021-04-06] MEDS: SODIUM CHLORIDE FLUSH 0.9% 10 ML SYRINGE IVP SCH ×3 (01:10→19:03)
[2021-04-06] MEDS: ACETAMINOPHEN 325 MG TABLET PO PRN ×3 (02:04→13:59)
[2021-04-06 06:24] LABS: HCT - HEMATOCRIT 24.4 % (37.0-47.0); HGB - HEMOGLOBIN 7.2 g/dL (12.0-16.0); MEAN CORPUSCULAR HEMOGLOBIN 23.8 pg (27.0-31.0); MEAN CORPUSCULAR HGB CONC 29.5 g/dL (32.0-36.0); MEAN CORPUSCULAR VOLUME 80.5 fL (81.0-99.0); MEAN PLATELET VOLUME 8.9 fL (7.9-10.8); RED BLOOD COUNT 3.03 10^6/uL (4.20-5.40); RED CELL DISTRIBUTION WIDTH 17.5 % (12.0-15.0); WHITE BLOOD COUNT 5.7 x10^3/uL (4.8-10.8)
[2021-04-06 07:03] LABS: FOLATE 13.32 ng/mL (5.90 - >24.8)
[2021-04-06 08:04] LABS: CALCIUM 9.1 mg/dL (8.5-10.3); CREATININE 0.7 mg/dL (0.4-1.0); POTASSIUM 3.7 mmol/L (3.5-5.0)
[2021-04-06] MEDS: TOPIRAMATE 100 MG TABLET PO SCH ×2 (08:09→21:34)
[2021-04-06] MEDS: FERROUS GLUCONATE 324 MG TABLET PO SCH (08:09)
--- NOTE | 2021-04-06 08:20 | PHARMACY PROGRESS NOTE ---
- Best Possible Medication History Admit Date and Time: 04/05/212200 Processed by: Nursing Medication History completed: Yes Patient Interview: Completed Secondary Source(s): Pharmacy records, Insurance records As the person ultimately responsible for medication therapy, providers are able to order a medication from an existing home medication list in [facility] via the "Reconcile Routine" prior to Confirmation of that medication by windows support engineer. Such practice is discouraged except when the physician, in their clinical judgment, deems that a medical need exists for a medication without regard to previous use.
[2021-04-06] MEDS: PANTOPRAZOLE 40 MG VIAL IVP SCH (08:37)
[2021-04-06] MEDS ORDERED: D5.45NS W/20 MEQ KCL 1,000 ML IV SCH (09:00)
[2021-04-06] MEDS ORDERED: IOVERSOL 320 100 ML VIAL IVP ONE ×2 (11:03→18:02)
[2021-04-06] MEDS ORDERED: IOVERSOL 320 50 ML VIAL ONE (11:38)
--- NOTE | 2021-04-06 12:38 | CONSULTATION NOTE ---
Referring Provider Consult Date: 04/06/21 Chief Complaint - Chief Complaint Chief Complaint: light headed and feeling going to pass out History of Present Illness - Admitted From Admitted From:: ED - History Obtained From Records Reviewed: yes History obtained from: pt Exam Limitations: none - History of Present Illness HPI Comment/Other: She has history of anemia and large paraesophageal hernia. She had endoscopy and ct scan in 2017 showing a large paraesophageal hernia at that time. Esophagus appeared normal. She had a colonoscopy 05/2017 showing inflammation at the ileal cecal valve. No polyps. Pathology non specific/ benign. 5 year follow up colonoscopy was recommended for history polyps. She describes waxing and waning symptoms of a paraesophageal hernia which has been progressing over several years. She has periodic pain with certain foods and even drinking a large glass of water. She denies pain at this time. She has not seen a surgeon for her hernia or symptoms. Her hct 12/2016 was 25. Hct yesterday and today 24. She denies having any apparent bleeding. History - Past Medical History Cardiovascular: reports: None Respiratory: reports: None Endocrine/Autoimmune: reports: HyPOthyroidism GI: reports: GI bleed : reports: None HEENT: reports: Chronic sinusitis Psych: reports: Claustrophobia Musculoskeletal: reports: Osteoarthritis, Chronic back pain Derm: reports: None MRSA Hx?: No - Past Surgical History Ortho: reports: Knee replacement - Family & Social History Living arrangement: At home Living Situation: Alone Social History Notes: She lives alone. She is a non-smoker who never smoked. She drinks alcohol socially. No illicit drug use history. - Substance History Use: Uses substance without health or social issues: Alcohol Meds/Allgy - Home Medications Home Medications: Ambulatory Orders Medication Instructions Recorded Confirmed Calcium Carbonate/Vitamin D3 1 each PO DAILY 11/23/16 04/05/21 [Calcium 600 + Vit D 400 Tablet] Glucosam/Chondr-Msm6/Manganese 1 each PO DAILY 11/23/16 04/05/21 [Glucosamine-Chondroitin Sftgl] Sennosides/Docusate Sodium [Stool 1 each PO DAILY 11/23/16 04/05/21 Softener-Stimulant Lax] Vitamin D3/Folic Acid [Folixapure 5,000 unit PO DAILY 11/23/16 04/05/21 Tablet] Topiramate [Topamax] 100 mg PO BID 12/05/16 04/05/21 oxyCODONE [Roxicodone] 10 mg PO QID PRN 12/05/16 04/06/21 Folic Acid 0.8 mcg PO DAILY 02/18/17 04/06/21 Ascorbic Acid [Vitamin C] 500 mg PO DAILY 05/06/19 04/06/21 Butalb/Acetaminophen/Caffeine 1 each PO Q4HR PRN #10 capsule 05/06/19 04/05/21 [Fioricet 50-300-40 mg Capsule] Ferrous Gluconate [Iron] 240 mg PO DAILY 05/06/19 04/06/21 Loperamide [Imodium] 2 mg PO QID PRN #10 capsule 05/06/19 04/05/21 - Allergies Allergies/Adverse Reactions: Allergies Allergy/AdvReac Type Severity Reaction Status Date / Time No Known Drug Allergies Allergy Verified 04/05/21 18:32 Review of Systems - Constitutional Constitutional: reports: Fatigue (10 pt ros as above otherwise unremarkable) Exam - Vital Signs Reviewed Vital Signs: Yes Vital Signs: Vital Signs x48h Temp Pulse Resp BP Pulse Ox 04/06/21 07:51 36.9 C 76 18 110/64 99 04/06/21 06:13 36.6 C 58 L 20 107/48 L 97 - Physical Exam General Appearance: positive: No acute distress, Alert Eyes Bilateral: positive: PERRL, EOMI, No scleral icterus ENT: positive: No signs of dehydration Neck: positive: No JVD Respiratory: positive: No respiratory distress Abdomen: positive: Non-tender, No distention Neurologic/Psychiatric: positive: Oriented x3 Conclusion/Plan - Problem List (1) Symptomatic anemia Conclusion/Plan: She had a thorough work up for anemia in 2017. She has progressive symptoms from her paraesophageal hernia. She does not have active bleeding. Her anemia is most likely related to her paraesophageal hernia. We discussed follow [facility] for referral repair paraesophageal hernia and possible EGD as an [facility] prior to referral. She was recommended to have another colonoscopy 05/2022 - Lab Results Fish Bones: 04/06/21 05:56 04/06/21 05:56
[2021-04-06 13:54] LABS: HCT - HEMATOCRIT 25.8 % (37.0-47.0); HGB - HEMOGLOBIN 7.6 g/dL (12.0-16.0)
--- NOTE | 2021-04-06 14:01 | PROVIDER PROGRESS NOTE ---
Assessment/Plan - Problem List (1) Symptomatic anemia Assessment/Plan: 04/06 HGB is 7.6 After 1 units blood transfusion. Guaiac test is pending. but pt denies GI bleeding or black stool. Anemia study show patient had a significantly iron deficiency as well. We will consult with GI surgeon. surgeon recommend pt follow up [facility] surgery for referral repair paraesophageal hernia and possible EGD as an outpatient here at [facility] prior to referral. Patient still complaint dizzy, hemoglobin 7.6 after 1 unit blood transfusion, will order another 1 units blood. start with IV protonix, continue H&H monitor. (2) Dizziness Patient still complaint dizzy when she went to bathroom. her hemoglobin 7.6 after 1 unit blood transfusion. Her EKG and troponin is negative for acute ischemic. we will transfusion of another unit of blood (3) Odynophagia pt has hx of large paraesophageal hernia. we consult with GI surgeon, surgeon recommend pt follow up [facility] surgery for referral repair paraesophageal hernia and possible EGD as an outpatient here at [facility] prior to referral. (4) Arthritis Conclusion/Plan: We will continue her usual pain meds. None of these appear to be NSAIDs - Current Meds Current Meds: Current Medications Generic Name Dose Route Start Last Admin Trade Name Freq PRN Reason Stop Dose Admin Acetaminophen 650 mg 04/05/21 22:01 04/06/21 13:59 Acetaminophen 325 Mg Tablet PO 650 mg Q4HR PRN Administration Pain 1 to 4 Ferrous Gluconate 324 mg 04/06/21 08:00 04/06/21 08:09 Ferrous Gluconate 324 Mg Tablet PO 324 mg DAILYWM DIOR Administration Oxycodone HCl 5 mg 04/05/21 23:33 04/06/21 13:58 Oxycodone 5 Mg Tablet PO 5 mg Q4HR PRN Administration PAIN Pantoprazole Sodium 40 mg 04/06/21 09:00 04/06/21 08:37 Pantoprazole 40 Mg Vial IVP 40 mg QDAC DIOR Administration Sodium Chloride 10 ml 04/06/21 01:00 04/06/21 08:10 Sodium Chloride Flush 0.9% 10 Ml Syringe IVP 10 ml 0100,0900,1700 DIOR Administration Topiramate 100 mg 04/06/21 09:00 04/06/21 08:09 Topiramate 100 Mg Tablet PO 100 mg BID DIOR Administration - Lab Result Fish Bone Diagrams: 04/06/21 13:50 04/06/21 05:56 - Additional Planning My Orders: My Active Orders 04/06/21 General Surgery Consult [CONS] Routine 04/06/21 09:00 Pantoprazole [Protonix] 40 mg IVP QDAC 04/06/21 10:48 Nutrition Consult [CONS] Routine ABDOMEN/PELVIS W [CT] Routine 04/06/21 Lunch Gluten Free Diet [DIET] 04/06/21 11:52 Out of bed 3+ hours today [RC] TID 04/06/21 21:00 H&H [HEMOGLOBIN AND HEMATOCRIT] [HEME] Timed 04/07/21 05:00 BMP - BASIC METABOLIC PANEL [CHEM] DAILYLAB CBC - COMP BLD CT W/AUTO DIFF [HEME] DAILYLAB 04/07/21 09:00 Calcium Carbonate/Vitamin D3 [Calcium 600-Vit D3 400 Tablet] 1 each PO DAILY Vitamin D3/Folic Acid [Folixapure Tablet] 5,000 unit PO DAILY 04/08/21 05:00 BMP - BASIC METABOLIC PANEL [CHEM] DAILYLAB CBC - COMP BLD CT W/AUTO DIFF [HEME] DAILYLAB 04/09/21 05:00 BMP - BASIC METABOLIC PANEL [CHEM] DAILYLAB CBC - COMP BLD CT W/AUTO DIFF [HEME] DAILYLAB 04/10/21 05:00 BMP - BASIC METABOLIC PANEL [CHEM] DAILYLAB CBC - COMP BLD CT W/AUTO DIFF [HEME] DAILYLAB 04/11/21 05:00 BMP - BASIC METABOLIC PANEL [CHEM] DAILYLAB CBC - COMP BLD CT W/AUTO DIFF [HEME] DAILYLAB Subjective - Subjective Patient Reports: Dizzines Objective Vital Signs: Vital Signs - 24 hr 04/05/21 04/05/21 04/05/21 18:29 19:24 20:55 Temperature 37 C 37 C Heart Rate 84 84 Heart Rate [ Brachial] Heart Rate [ 70 Sitting] Heart Rate [ 69 Standing] Heart Rate [ 56 L Supine] Respiratory 18 18 Rate Blood Pressure 129/73 129/74 Blood Pressure [Left Brachial artery] Blood Pressure [Right Brachial artery] Blood Pressure 119/63 [Sitting] Blood Pressure 123/72 [Standing] Blood Pressure 116/56 L [Supine] O2 Saturation 97 97 04/05/21 04/05/21 04/06/21 21:00 23:00 00:01 Temperature 37.2 C 37.2 C Heart Rate 80 62 Heart Rate [ 61 Brachial] Heart Rate [ Sitting] Heart Rate [ Standing] Heart Rate [ Supine] Respiratory 18 16 14 Rate Blood Pressure 125/63 118/55 L Blood Pressure [Left Brachial artery] Blood Pressure 128/61 [Right Brachial artery] Blood Pressure [Sitting] Blood Pressure [Standing] Blood Pressure [Supine] O2 Saturation 100 98 04/06/21 04/06/21 04/06/21 00:19 03:25 06:13 Temperature 37.4 C 37 C 36.6 C Heart Rate 70 58 L Heart Rate [ 58 L Brachial] Heart Rate [ Sitting] Heart Rate [ Standing] Heart Rate [ Supine] Respiratory 16 16 20 Rate Blood Pressure 110/64 101/47 L Blood Pressure 107/48 L [Left Brachial artery] Blood Pressure [Right Brachial artery] Blood Pressure [Sitting] Blood Pressure [Standing] Blood Pressure [Supine] O2 Saturation 97 04/06/21 07:51 Temperature 36.9 C Heart Rate Heart Rate [ 76 Brachial] Heart Rate [ Sitting] Heart Rate [ Standing] Heart Rate [ Supine] Respiratory 18 Rate Blood Pressure Blood Pressure 110/64 [Left Brachial artery] Blood Pressure [Right Brachial artery] Blood Pressure [Sitting] Blood Pressure [Standing] Blood Pressure [Supine] O2 Saturation 99 Oxygen O2 Source Room air I&O (Last 24 Hrs): Intake and Output Totals x24h 04/04/21 04/05/21 04/06/21 23:59 23:59 23:59 Intake Total 1000 3360 Output Total 850 Balance 1000 2510 General: Alert, Oriented x3, Cooperative, No acute distress HEENT: Atraumatic Neck: Supple Lymphatic: no adenopathy Neuro: Alert, Non Focal, Oriented Times 3 Cardiovascular: Regular rate, Normal S1, Normal S2 Respiratory: Chest non-tender, No respiratory distress, Breath sounds nml Abdomen: Normal bowel sounds, Soft, No tenderness Extremities: Normal pulses - Results Results: Laboratory Results WBC 5.7 x10^3/uL (4.8-10.8) 04/06/21 05:56 RBC 3.03 10^6/uL (4.20-5.40) L 04/06/21 05:56 Hgb 7.6 g/dL (12.0-16.0) L 04/06/21 13:50 Hct 25.8 % (37.0-47.0) L 04/06/21 13:50 MCV 80.5 fL (81.0-99.0) L 04/06/21 05:56 MCH 23.8 pg (27.0-31.0) L 04/06/21 05:56 MCHC 29.5 g/dL (32.0-36.0) L 04/06/21 05:56 RDW 17.5 % (12.0-15.0) H 04/06/21 05:56 Plt Count 309 10^3/uL (130-450) 04/06/21 05:56 MPV 8.9 fL (7.9-10.8) 04/06/21 05:56 Neut # (Auto) 4.0 10^3/uL (1.5-6.6) 04/05/21 20:38 Lymph # (Auto) 1.8 10^3/uL (1.5-3.5) 04/05/21 20:38 Coffey # (Auto) 0.7 10^3/uL (0.0-1.0) 04/05/21 20:38 Eos # (Auto) 0.1 10^3/uL (0.0-0.7) 04/05/21 20:38 Baso # (Auto) 0.1 10^3/uL (0.0-0.1) 04/05/21 20:38 Absolute Nucleated RBC 0.00 x10^3/uL 04/05/21 20:38 Nucleated RBC % 0.0 /100WBC 04/05/21 20:38 Manual Slide Review Indicated 04/05/21 20:38 WBC Morphology NORMAL CHRISTINA (NORMAL) 04/05/21 20:38 Platelet Estimate NORMAL (130-450,000) (NORMAL) 04/05/21 20:38 Platelet Morphology NORMAL APPEARANCE (NORMAL) 04/05/21 20:38 RBC Morph Micro Appear 1+ HYPOCHROMASIA (NORMAL) 04/05/21 20:38 PT 11.2 secs (9.9-12.6) 04/05/21 20:38 INR 1.0 (0.8-1.2) 04/05/21 20:38 APTT 26.7 secs (24.9-33.3) 04/05/21 20:38 D-Dimer 277.2 ng/mL (200.0-255.0) H 04/05/21 20:38 Sodium 141 mmol/L (135-145) 04/06/21 05:56 Potassium 3.7 mmol/L (3.5-5.0) 04/06/21 05:56 Chloride 110 mmol/L (101-111) 04/06/21 05:56 Carbon Dioxide 22 mmol/L (21-32) 04/06/21 05:56 Anion Gap 9.0 (6-13) 04/06/21 05:56 BUN 21 mg/dL (6-20) H 04/06/21 05:56 Creatinine 0.7 mg/dL (0.4-1.0) 04/06/21 05:56 Estimated GFR (MDRD) 86 (>89) L 04/06/21 05:56 Glucose 92 mg/dL (70-100) 04/06/21 05:56 Calcium 9.1 mg/dL (8.5-10.3) 04/06/21 05:56 Iron 14 ug/dL (28-170) L 04/05/21 20:30 TIBC 538 ug/dL (250-450) H 04/05/21 20:30 % Saturation 3 % (20-50) L 04/05/21 20:30 Transferrin 384 mg/dL (192-382) H 04/05/21 20:30 Total Bilirubin 0.4 mg/dL (0.2-1.0) 04/05/21 20:38 AST 15 IU/L (10-42) 04/05/21 20:38 ALT 14 IU/L (10-60) 04/05/21 20:38 Alkaline Phosphatase 60 IU/L (42-121) 04/05/21 20:38 Troponin I High Sens < 2.3 ng/L (2.3-14.8) L 04/05/21 20:38 Total Protein 6.8 g/dL (6.7-8.2) 04/05/21 20:38 Albumin 4.2 g/dL (3.2-5.5) 04/05/21 20:38 Globulin 2.6 g/dL (2.1-4.2) 04/05/21 20:38 Albumin/Globulin Ratio 1.6 (1.0-2.2) 04/05/21 20:38 Lipase 35 U/L (22-51) 04/05/21 20:38 Vitamin B12 272 pg/mL (180-914) 04/06/21 05:56 Folate 13.32 ng/mL (5.90 - >24.8) 04/06/21 05:56 Nasal Adenovirus (PCR) NOT DETECTED 04/05/21 20:27 Nasal B. parapertussis DNA (PCR) NOT DETECTED 04/05/21 20:27 Nasal Coronavir 229E PCR NOT DETECTED 04/05/21 20:27 Nasal Coronavir HKU1 PCR NOT DETECTED 04/05/21 20:27 Nasal Coronavir NL63 PCR NOT DETECTED 04/05/21 20:27 Nasal Coronavir OC43 PCR NOT DETECTED 04/05/21 20:27 Nasal Enterovir/Rhinovir PCR NOT DETECTED 04/05/21 20:27 Nasal Influenza B PCR NOT DETECTED 04/05/21 20:27 Nasal Influenza A PCR NOT DETECTED 04/05/21 20:27 Nasal Parainfluen 1 PCR NOT DETECTED 04/05/21 20:27 Nasal Parainfluen 2 PCR NOT DETECTED 04/05/21 20:27 Nasal Parainfluen 3 PCR NOT DETECTED 04/05/21 20:27 Nasal Parainfluen 4 PCR NOT DETECTED 04/05/21 20:27 Nasal RSV (PCR) NOT DETECTED 04/05/21 20:27 Nasal B.pertussis DNA PCR NOT DETECTED 04/05/21 20:27 Nasal C.pneumoniae (PCR) NOT DETECTED 04/05/21 20:27 Carmelo Human Metapneumo PCR NOT DETECTED 04/05/21 20:27 Nasal M.pneumoniae (PCR) NOT DETECTED 04/05/21 20:27 Nasal SARS-CoV-2 (PCR) NOT DETECTED 04/05/21 20:27 Blood Type O POSITIVE 04/05/21 22:22 Antibody Screen NEGATIVE 04/05/21 22:22 Crossmatch IS Only See Detail 04/05/21 22:22 - Procedures Procedures: Procedures EXCISION OF ESOPHAGOGASTRIC JUNCTION, ENDO, DIAGN (12/05/16) EXCISION OF LARGE INTESTINE, ENDO, DIAGN (12/05/16) INSPECTION OF LOWER INTESTINAL TRACT, ENDO (05/17/17) REPLACE OF R KNEE JT WITH SYNTH SUB, CEMENT, OPEN APPROACH (12/05/16) TRANSFUSE NONAUT RED BLOOD CELLS IN PERIPH VEIN, PERC (12/05/16) ABX Reporting Has patient been on IV antibiotics over the past 48 hours?: No Current Medications - Current Medications Current Medications: Active Medications Acetaminophen (Acetaminophen 325 Mg Tablet) 650 mg PO Q4HR PRN PRN Reason: Pain 1 to 4 Last Admin: 04/06/21 13:59 Dose: 650 mg Documented by: Acetaminophen/Butalbital/Caffeine (Butalb/Acetam/Caff 50/325/40mg Tablet) 1 tab PO Q4HR PRN PRN Reason: HEADACHE Calcium Carbonate/Glycine (Calcium Carb (Oyster Shell) 500 Mg Tablet) 500 mg PO DAILY [facility] Cholecalciferol (Cholecalciferol 5,000 Unit Capsule) 5,000 unit PO DAILY [facility] Ferrous Gluconate (Ferrous Gluconate 324 Mg Tablet) 324 mg PO DAILYWM [facility] Last Admin: 04/06/21 08:09 Dose: 324 mg Documented by: Folic Acid (Folic Acid 1 Mg Tablet) 1 mg PO DAILY [facility] Sodium Chloride (Normal Saline 0.9%) 1,000 mls @ 0 mls/hr IV .Q0M [facility] Ondansetron HCl (Ondansetron 4 Mg/2 Ml Vial) 4 mg IVP Q6HR PRN PRN Reason: Nausea / Vomiting Oxycodone HCl (Oxycodone 5 Mg Tablet) 5 mg PO Q4HR PRN PRN Reason: PAIN Last Admin: 04/06/21 13:58 Dose: 5 mg Documented by: Pantoprazole Sodium (Pantoprazole 40 Mg Vial) 40 mg IVP QDAC [facility] Last Admin: 04/06/21 08:37 Dose: 40 mg Documented by: Sodium Chloride (Sodium Chloride Flush 0.9% 10 Ml Syringe) 10 ml IVP PRN PRN PRN Reason: NEEDED PER PROVIDER ORDERS Sodium Chloride (Sodium Chloride Flush 0.9% 10 Ml Syringe) 10 ml IVP 0100,0900,1700 [facility] Last Admin: 04/06/21 08:10 Dose: 10 ml Documented by: Topiramate (Topiramate 100 Mg Tablet) 100 mg PO BID [facility] Last Admin: 04/06/21 08:09 Dose: 100 mg Documented by: Calcium Carbonate/Vitamin D3 [Calcium 600 + Vit D 400 Tablet] 1 each PO DAILY 11/23/16 Glucosam/Chondr-Msm6/Manganese [Glucosamine-Chondroitin Sftgl] 1 each PO DAILY 11/23/16 Sennosides/Docusate Sodium [Stool Softener-Stimulant Lax] 1 each PO DAILY 11/23/16 Vitamin D3/Folic Acid [Folixapure Tablet] 5,000 unit PO DAILY 11/23/16 Topiramate [Topamax] 100 mg PO BID 12/05/16 oxyCODONE [Roxicodone] 10 mg PO QID PRN 12/05/16 Folic Acid 0.8 mcg PO DAILY 02/18/17 Ascorbic Acid [Vitamin C] 500 mg PO DAILY 05/06/19 Ferrous Gluconate [Iron] 240 mg PO DAILY 05/06/19
--- NOTE | 2021-04-06 14:59 | CT Report ---
PROCEDURE: Abdomen/Pelvis W INDICATIONS: abdominal pain CONTRAST: IV CONTRAST: Optiray 320 ml: 100 PO CONTRAST: Optiray 320 ml50 TECHNIQUE: After the administration of intravenous and oral contrast, 5 mm thick sections acquired from the diap hragms to the symphysis. 5 mm thick coronal and sagittal reformats were acquired. For radiation dos e reduction, the following was used: automated exposure control, adjustment of mA and/or kV accordin g to patient size. COMPARISON: 12/11/2016. FINDINGS: Image quality: There is beam hardening artifact from patient's left upper extremity. ABDOMEN: Lung bases: There is mild linear atelectasis and scarring medially in the lung bases. Heart size is normal. There is a moderate to large hiatal hernia redemonstrated. Solid organs: There is a small hypodense focus within the caudate lobe of the liver which is too sma ll to characterize but was likely present on the prior study and likely represents a cyst. Gallbladde r appears within normal limits without calcified gallstones. Biliary system is non dilated. The sple en is normal in size. Pancreas enhances normally without peripancreatic fat stranding or fluid collec tions. No adrenal nodules. Kidneys demonstrate no hydronephrosis. A few small hypodense foci are re demonstrated within left kidney which are too small to characterize but likely represent cysts. Peritoneum and bowel: Bowel loops demonstrate normal wall thickness and caliber. The appendix is nor mal in appearance. There is colonic diverticulosis without acute diverticulitis. No free fluid or air . Nodes and vessels: No retroperitoneal or mesenteric adenopathy by size criteria. Aorta and inferior vena cava are normal in size. Miscellaneous: No ventral hernias. PELVIS: Genitourinary: Bladder wall thickness is normal. A few calcified fibroids are demonstrated within th e uterus. Miscellaneous: No inguinal hernias or adenopathy. Bones: There is a partially visualized hemangioma within the T9 vertebral body. No suspicious bony l esions. No vertebral body compression fractures. IMPRESSION: 1. No definite acute intra-abdominal abnormality. 2. Moderate to large hiatal hernia redemonstrated. 3. Colonic diverticulosis without acute diverticulitis. 4. No evidence of bowel obstruction or appendicitis. 5. Small calcified fibroids demonstrated within the uterus. Reviewed by: Jasson Walton MD on 04/06/2021 2:58 PM PDT Approved by: Jasson Walton MD on 04/06/2021 2:58 PM PDT Station ID: [id number]
[2021-04-06] MEDS: BUTALB/ACETAM/CAFF 50/325/40MG TABLET PO PRN ×2 (16:39→21:37)
[2021-04-06] MEDS ORDERED: IOVERSOL 320 50 ML VIAL PO ONE (18:02)
[2021-04-06 20:57] LABS: HCT - HEMATOCRIT 28.4 % (37.0-47.0); HGB - HEMOGLOBIN 8.6 g/dL (12.0-16.0)
[2021-04-07] MEDS: SODIUM CHLORIDE FLUSH 0.9% 10 ML SYRINGE IVP SCH ×2 (00:38→08:12)
[2021-04-07] MEDS: ACETAMINOPHEN 325 MG TABLET PO PRN (00:41)
[2021-04-07] MEDS: oxyCODONE 5 MG TABLET PO PRN (00:41)
[2021-04-07] MEDS: BUTALB/ACETAM/CAFF 50/325/40MG TABLET PO PRN (02:34)
[2021-04-07] MEDS: PANTOPRAZOLE 40 MG VIAL IVP SCH (06:00)
[2021-04-07 06:14] LABS: BASOPHILS # (AUTO) 0.1 10^3/uL (0.0-0.1); BASOPHILS % (AUTO) 1.7 %; EOSINOPHILS # (AUTO) 0.3 10^3/uL (0.0-0.7); EOSINOPHILS % (AUTO) 6.1 %; HCT - HEMATOCRIT 29.6 % (37.0-47.0); HGB - HEMOGLOBIN 8.8 g/dL (12.0-16.0); LYMPHOCYTES # (AUTO) 1.9 10^3/uL (1.5-3.5); LYMPHOCYTES % (AUTO) 45.1 %; MEAN CORPUSCULAR HEMOGLOBIN 24.2 pg (27.0-31.0); MEAN CORPUSCULAR HGB CONC 29.7 g/dL (32.0-36.0); MEAN CORPUSCULAR VOLUME 81.3 fL (81.0-99.0); MEAN PLATELET VOLUME 8.6 fL (7.9-10.8); MONOCYTES # (AUTO) 0.5 10^3/uL (0.0-1.0); MONOCYTES % (AUTO) 11.5 %; NEUTROPHILS # (AUTO) 1.5 10^3/uL (1.5-6.6); NEUTROPHILS % (AUTO) 35.4 %; PLT - PLATELET COUNT 349 10^3/uL (130-450); RED BLOOD COUNT 3.64 10^6/uL (4.20-5.40); RED CELL DISTRIBUTION WIDTH 17.5 % (12.0-15.0); WHITE BLOOD COUNT 4.1 x10^3/uL (4.8-10.8)
[2021-04-07 06:23] LABS: CALCIUM 9.3 mg/dL (8.5-10.3); CREATININE 0.7 mg/dL (0.4-1.0); POTASSIUM 3.8 mmol/L (3.5-5.0)
[2021-04-07 07:59] VITALS: BP 113/57
[2021-04-07] MEDS: TOPIRAMATE 100 MG TABLET PO SCH (08:11)
[2021-04-07] MEDS: FERROUS GLUCONATE 324 MG TABLET PO SCH (08:11)
[2021-04-07] MEDS ORDERED: FOLIC ACID 1 MG TABLET PO SCH (09:00)
[2021-04-07] MEDS ORDERED: CHOLECALCIFEROL 5,000 UNIT CAPSULE PO SCH (09:00)
[2021-04-07] MEDS ORDERED: CALCIUM CARB (OYSTER SHELL) 500 MG TABLET PO SCH (09:00)
--- NOTE | 2021-04-07 09:15 | Discharge Plan ---
Discharge Plan Problem Reviewed?: Yes Disposition: Home, Self Care Condition: Stable Prescriptions: Pantoprazole Sodium [Protonix] 20 mg PO DAILY #30 tab Diet: Regular Activity Restrictions: Activity as Tolerated Shower Restrictions: No (fall precaution) Instruction Topics: Anemia, ED Anemia Iron Deficiency Health Concerns: anemia and paraesophageal hernia Plan of Treatment: you have significantly iron deficiency anemia. Your Occult blood test is negative. Now your HGB is rising and stable. You may followup with Surgeon for referral to repair paraesophageal hernia and possible EGD as an outpatient here at [facility] prior to referral. You may follow up with your PCP in one week to check HGB again, you may followup with contractor general building as out-pt if you continue to have significant anemia. Care Goals: Stabilization and improvement of your medical condition Assessment: Discussed with you about the fall precaution, Discussed the care plan with you, answered your questions, you understood Additional Instructions or Follow Up instructions: You may follow-up with your PCP in 1 week and recheck your hemoglobin. You may follow-up with GI surgeon Dr. Lindsey as out-pt. Should your symptoms return or worsen, you may present to ER or call 911 for help No Smoking: If you smoke, Please STOP! Call for help. Follow-up with: Eduardo Olivo MD [Primary Care Provider] -
--- NOTE | 2021-04-07 11:43 | DISCHARGE SUMMARY ---
Discharge Summary Admit Date: 04/05/21 Discharge Date: 04/07/21 Discharging Provider: Jose De Jesus Lee Primary Care Provider: Eduardo Zheng Condition at Discharge: Stable Discharge Disposition: 01 Home, Self Care Discharge Facility Name: home - DIAGNOSES Discharge Diagnoses with Status of Each Condition: (1) Symptomatic anemia improved. Pt's HGB is 8.8 fro 7.0 at admission. pt's HGB is steady and rising. pt had two unit of blood transfusion. pt's occult stood test is negative. Patient had a GI surgeon consulted. surgeon recommend pt follow up [facility] surgery for referral repair paraesophageal hernia and possible EGD as an ou tpatient here at [facility] prior to referral. Patient was found also iron deficiency. Patient had home iron, resume. pt is prescribed protonix. (2) Dizziness improved. Pt's HGB is 8.8 fro 7.0 at admission. orthostatic vital is negative for orthostatic hypotension. Discussed with patient for fall precaution and prevention. pt report she had enough support device at home. (3) Odynophagia pt has hx of large paraesophageal hernia. CT of abdomen reveals similar result with moderate to large hiatal hernia otherwise it is unremarkable. consult with GI surgeon, surgeon recommend pt follow up [facility] surgery for referral repair paraesophageal hernia and possible EGD as an outpatient here at [facility] prior to referral. pt tolerated diet. pt had prepress stripper consult at hospital. (4) Arthritis stable, resume home meds - HPI History of Present Illness: refer from Dr. Tiffany Tyler's HPI on 04/05/21 This is a 60-year-old white female with a remote history of prior anemia and w/u then with EGD found hiatal hernia and colonoscopy findings were negative. She has a histyory of arthritis and chronic back pain from bulging discs. For the last 2-3 weeks she has noticed fatigue, lethargy and dizziness when getting up quickly. Today the patient presented to the emergency room complaining of severe dizziness and had near syncope, which occurred while she was taking a shower. It was so severe that she had to stop and lay down on her mattress for relief. She was afraid she might black out completely and therefore called a friend, and wanted her to stay on the phone until she got relief from the severe dizziness. In the ED her vital signs were stable but labs show a hemoglobin of 7. She has not noticed any melena, and there has been no vomiting. She does admit to epigastric pressure feelings after eating over the last several weeks. She also admits to odynophagia and describes that food "gets stuck" and she sometimes has to cough it up or uses multiple sips of water to push the food bolus down. She has no eaten steak or chicken for months because of these feelings. She is being placed in Observation status to receive a blood transfusion and on telemetry and to check orthostatic vital signs given the complaint of dizziness. - CONSULTS | PROCEDURES Consultations: Dr. Lindsey Procedures: no procedure - ALLERGIES Allergies/Adverse Reactions: Allergies Allergy/AdvReac Type Severity Reaction Status Date / Time No Known Drug Allergies Allergy Verified 04/05/21 18:32 - MEDICATIONS Home Medications: Ambulatory Orders Medication Instructions Recorded Confirmed Calcium Carbonate/Vitamin D3 1 each PO DAILY 11/23/16 04/05/21 [Calcium 600-Vit D3 400 Tablet] Glucosam/Chondr-Msm6/Manganese 1 each PO DAILY 11/23/16 04/05/21 [Glucosamine-Chondroitin Sftgl] Sennosides/Docusate Sodium [Stool 1 each PO DAILY 11/23/16 04/05/21 Softener-Stim Lax Tablet] Vitamin D3/Folic Acid [Folixapure 5,000 unit PO DAILY 11/23/16 04/05/21 Tablet] Topiramate [Topamax] 100 mg PO BID 12/05/16 04/05/21 oxyCODONE [Roxicodone] 10 mg PO QID PRN 12/05/16 04/06/21 Folic Acid 0.8 mcg PO DAILY 02/18/17 04/06/21 Ascorbic Acid [Vitamin C] 500 mg PO DAILY 05/06/19 04/06/21 Butalb/Acetaminophen/Caffeine 1 each PO Q4HR PRN #10 capsule 05/06/19 04/05/21 [Fioricet 50-300-40 mg Capsule] Ferrous Gluconate [Iron] 240 mg PO DAILY 05/06/19 04/06/21 Loperamide [Imodium] 2 mg PO QID PRN #10 capsule 05/06/19 04/05/21 Pantoprazole Sodium [Protonix] 20 mg PO DAILY #30 tab 04/07/21 - PHYSICAL EXAM AT DISCHARGE General Appearance: positive: No acute distress, Alert. negative: Lethargic Eyes Bilateral: positive: Normal inspection, PERRL, No lid inflammation ENT: positive: ENT inspection nml, No signs of dehydration. negative: Purulent nasal drainage Neck: positive: Nml inspection, Trachea midline. negative: Thyromegaly, Tracheal deviation Respiratory: positive: Chest non-tender, No respiratory distress, Breath sounds nml. negative: Wheezes Cardiovascular: positive: Regular rate & rhythm, No murmur. negative: Tachycardia, Bradycardia, Systolic murmur, Diastolic murmur Peripheral Pulses: positive: 2+ Abdomen: positive: Non-tender, Nml bowel sounds, No distention. negative: Tenderness Back: positive: Nml inspection Skin: positive: Color nml, Warm, Dry. negative: Cyanosis Extremities: positive: Non-tender, Full ROM, Nml appearance. negative: Calf tenderness Neurologic/Psychiatric: positive: Oriented x3, Motor nml, Sensation nml, Mood/affect nml. negative: Weakness, Sensory loss, Facial droop, Slurred/abnml speech, Depressed mood/affect - LABS Result Diagrams: 04/07/21 06:05 04/07/21 06:05 - FOLLOW UP Follow Up: you have significantly iron deficiency anemia. Your Occult blood test is negative. Now your HGB is rising and stable. You may followup with Surgeon for referral to repair paraesophageal hernia and possible EGD as an outpatient here at [facility] prior to referral. You may follow up with your PCP in one week to check HGB again, you may followup with special procedures nurse as out-pt if you continue to have significant anemia. You may follow-up with your PCP in 1 week and recheck your hemoglobin. You may follow-up with GI surgeon Dr. Lindsey as out-pt. Should your symptoms return or worsen, you may present to ER or call 911 for help - TIME SPENT Time Spent in Discharge (Minutes): 30
== END 2021-04-07 14:02 | disposition home or self-care (01) ==
LOC: ED 18:15 → MS2 22:01
PROVIDERS: ADMIT Internal Medicine; ATTEND Nurse Practitioner Gerontology
DX: D50.9 Iron deficiency anemia, unspecified (principal); R42 Dizziness and giddiness; R13.10 Dysphagia, unspecified; K44.9 Diaphragmatic hernia without obstruction or gangrene; M54.9 Dorsalgia, unspecified; G89.29 Other chronic pain; Z20.822 Contact with and (suspected) exposure to COVID-19; Z79.899 Other long term (current) drug therapy; Z79.891 Long term (current) use of opiate analgesic; M19.90 Unspecified osteoarthritis, unspecified site
CPT/HCPCS: 0202U; 36415; 36430; 71045; 74177; 80048; 80053; 82272; 82607; 82746; 83540; 83690; 84466; 84484; 85014; 85018; 85025; 85027; 85379; 85610; 85730; 86850; 86900; 86901; 86920; 93005; 96374; 96375; 96376; 99284; 99285; A9270; G0378; J1170; P9016; Q9967

== ENCOUNTER 2021-04-09 18:57 | Emergency (ER) | payer MEDICAID ==
[2021-04-09 19:09] VITALS: BP 138/91
--- NOTE | 2021-04-09 19:13 | ED Physician Documentation ---
PD HPI GI BLEED - Stated complaint Stated Complaint: BLACK STOOL,DIZZY,HEADACHE - Chief complaint Chief Complaint: Abd Pain - History obtained from History obtained from: Patient - History of Present Illness Timing - onset: Yesterday Timing - details: Gradual onset Pain level now: 4 Associated symptoms: Black/tarry stool, Abdominal pain. No: Vomiting, Coffee ground emesis, Hematemesis, Diarrhea, Constipation Worsened by: Eating (abdominal discomfort) Similar symptoms before: Diagnosis (GIB) Recently seen: Admitted - Additional information Additional information: patient was inpatient at [facility] 04/05-04/07 (discharged 2 days ago). She was admitted for anemia; hemoccult was negative and this, combined with other tests, made iron deficiency the most likely cause. She received 2 units PRBC during stay, raising hgb from 7.0 to 8.8. She says she had her first BM since being discharged earlier today and it was dark black and thus she called her PMD and was advised to come to ED. She says she has BLANCA, becomes dizzy/lightheaded even when sitting up in bed. Review of Systems Constitutional: reports: Chills. denies: Fever, Sweats Cardiac: reports: Reviewed and negative Respiratory: reports: Reviewed and negative GI: reports: Abdominal Pain, Bloody / black stool. denies: Nausea, Vomiting, Constipation, Diarrhea, Hematemesis Neurologic: reports: Generalized weakness, Headache. denies: Focal weakness, Numbness PD PAST MEDICAL HISTORY - Past Medical History Cardiovascular: None Respiratory: None Endocrine/Autoimmune: HyPOthyroidism GI: GI bleed : None HEENT: Chronic sinusitis Psych: Claustrophobia Musculoskeletal: Osteoarthritis, Chronic back pain Derm: None - Past Surgical History Past Surgical History: Yes Ortho: Knee replacement - Present Medications Home Medications: Ambulatory Orders Medication Instructions Recorded Confirmed Calcium Carbonate/Vitamin D3 1 each PO DAILY 11/23/16 04/05/21 [Calcium 600-Vit D3 400 Tablet] Glucosam/Chondr-Msm6/Manganese 1 each PO DAILY 11/23/16 04/09/21 [Glucosamine-Chondroitin Sftgl] Sennosides/Docusate Sodium [Stool 1 each PO DAILY 11/23/16 04/09/21 Softener-Stim Lax Tablet] Vitamin D3/Folic Acid [Folixapure 5,000 unit PO DAILY 11/23/16 04/09/21 Tablet] Topiramate [Topamax] 100 mg PO BID 12/05/16 04/09/21 oxyCODONE [Roxicodone] 10 mg PO QID PRN 12/05/16 04/09/21 Folic Acid 0.8 mcg PO DAILY 02/18/17 04/09/21 Ascorbic Acid [Vitamin C] 500 mg PO DAILY 05/06/19 04/09/21 Butalb/Acetaminophen/Caffeine 1 each PO Q4HR PRN #10 capsule 05/06/19 04/05/21 [Fioricet 50-300-40 mg Capsule] Ferrous Gluconate [Iron] 240 mg PO DAILY 05/06/19 04/06/21 Loperamide [Imodium] 2 mg PO QID PRN #10 capsule 05/06/19 04/09/21 Pantoprazole Sodium [Protonix] 20 mg PO DAILY #30 tab 04/07/21 04/09/21 - Allergies Allergies/Adverse Reactions: Allergies Allergy/AdvReac Type Severity Reaction Status Date / Time No Known Drug Allergies Allergy Verified 04/05/21 18:32 - Social History Does the pt smoke?: No Smoking Status: Former smoker Does the pt drink ETOH?: Yes Does the pt have substance abuse?: No PD ED PE NORMAL - Vitals Vital signs reviewed: Yes - General General: Alert and oriented X 3, No acute distress, Well developed/nourished - HEENT HEENT: Moist mucous membranes - Cardiac Cardiac: RRR, No murmur - Respiratory Respiratory: No respiratory distress, Clear bilaterally - Abdomen Abdomen: Normal bowel sounds, Soft, Non tender, Non distended - Derm Derm: Normal color, Warm and dry Results - Vitals Vitals: Vital Signs - 24 hr 04/09/21 19:05 Temperature 37 C Heart Rate 84 Respiratory 16 Rate Blood Pressure 138/91 H O2 Saturation 98 Oxygen O2 Source Room air - Labs Labs: Laboratory Tests 04/09/21 04/09/21 04/09/21 19:21 19:21 19:21 WBC 5.4 RBC 4.20 Hgb 10.1 L Hct 34.3 L MCV 81.7 MCH 24.0 L MCHC 29.4 L RDW 19.1 H Plt Count 405 MPV 8.4 Neut # (Auto) 3.6 Lymph # (Auto) 1.2 L [place] # (Auto) 0.5 Eos # (Auto) 0.1 Baso # (Auto) 0.1 Absolute Nucleated RBC 0.00 Nucleated RBC % 0.0 PT 11.7 INR 1.1 Sodium Potassium Chloride Carbon Dioxide Anion Gap BUN Creatinine Estimated GFR (MDRD) Glucose Calcium Total Bilirubin AST ALT Alkaline Phosphatase Total Protein Albumin Globulin Albumin/Globulin Ratio Lipase Blood Type O POSITIVE Antibody Screen NEGATIVE 04/09/21 19:21 WBC RBC Hgb Hct MCV MCH MCHC RDW Plt Count MPV Neut # (Auto) Lymph # (Auto) [place] # (Auto) Eos # (Auto) Baso # (Auto) Absolute Nucleated RBC Nucleated RBC % PT INR Sodium 139 Potassium 3.8 Chloride 104 Carbon Dioxide 24 Anion Gap 11.0 BUN 12 Creatinine 0.8 Estimated GFR (MDRD) 73 L Glucose 135 H Calcium 9.9 Total Bilirubin 0.6 AST 17 ALT 17 Alkaline Phosphatase 67 Total Protein 7.2 Albumin 4.5 Globulin 2.7 Albumin/Globulin Ratio 1.7 Lipase 36 Blood Type Antibody Screen PD MEDICAL DECISION MAKING - ED course Complexity details: reviewed old records, reviewed results, re-evaluated patient, considered differential, d/w patient ED course: presents with chief concern of having had a dark, black stool tonight, which is her first BM since being discharged from inpatient [facility] 2 days ago after being treated for anemia with PRBC transfusions. Her hemoglobin tonight is 10.1 (up from 8.8 just 2 days ago), and her other blood tests are unremarkable (normal WBC, no significant/concerning findings on ED abdominal panel). Results d/w patient and she is comfortable with d/c home Departure - Departure Disposition: 01 Home, Self Care Clinical Impression: Dark stools Condition: Good Instructions: ED Anemia Type Not Specified Follow-Up: Eduardo Olivo MD [Primary Care Provider] - Comments: As we discussed, your hemoglobin tonight is 10.1 (up from 8.8 just 2 days ago). While this is still below normal, it is a reassuring result and at this level would be very unlikely to be causing any symptoms. Follow up with your primary care provider as scheduled. Discharge Date/Time: 04/09/21 20:35
[2021-04-09 19:29] LABS: BASOPHILS # (AUTO) 0.1 10^3/uL (0.0-0.1); BASOPHILS % (AUTO) 1.1 %; EOSINOPHILS # (AUTO) 0.1 10^3/uL (0.0-0.7); EOSINOPHILS % (AUTO) 1.3 %; HCT - HEMATOCRIT 34.3 % (37.0-47.0); HGB - HEMOGLOBIN 10.1 g/dL (12.0-16.0); LYMPHOCYTES # (AUTO) 1.2 10^3/uL (1.5-3.5); LYMPHOCYTES % (AUTO) 22.3 %; MEAN CORPUSCULAR HGB CONC 29.4 g/dL (32.0-36.0); MEAN CORPUSCULAR VOLUME 81.7 fL (81.0-99.0); MEAN PLATELET VOLUME 8.4 fL (7.9-10.8); MONOCYTES # (AUTO) 0.5 10^3/uL (0.0-1.0); MONOCYTES % (AUTO) 8.4 %; NEUTROPHILS # (AUTO) 3.6 10^3/uL (1.5-6.6); NEUTROPHILS % (AUTO) 66.7 %; PLT - PLATELET COUNT 405 10^3/uL (130-450); RED CELL DISTRIBUTION WIDTH 19.1 % (12.0-15.0); WHITE BLOOD COUNT 5.4 x10^3/uL (4.8-10.8)
[2021-04-09 19:35] LABS: INR 1.1 (0.8-1.2); PT - PROTHROMBIN TIME 11.7 secs (9.9-12.6)
[2021-04-09 19:41] LABS: ALBUMIN 4.5 g/dL (3.2-5.5); ALBUMIN/GLOBULIN RATIO 1.7 (1.0-2.2); BILIRUBIN,TOTAL 0.6 mg/dL (0.2-1.0); CALCIUM 9.9 mg/dL (8.5-10.3); CREATININE 0.8 mg/dL (0.4-1.0); POTASSIUM 3.8 mmol/L (3.5-5.0); TOTAL PROTEIN 7.2 g/dL (6.7-8.2)
== END 2021-04-09 20:35 | disposition home or self-care (01) ==
LOC: ED 18:57
DX: R19.5 Other fecal abnormalities (principal); D64.9 Anemia, unspecified; Z87.891 Personal history of nicotine dependence
CPT/HCPCS: 36415; 80053; 83690; 85025; 85610; 86850; 86900; 86901; 99283

== ENCOUNTER 2021-04-14 12:54 | Outpatient (CLI) | payer MEDICAID ==
[2021-04-14 18:37] LABS: BASOPHILS # (AUTO) 0.1 10^3/uL (0.0-0.1); BASOPHILS % (AUTO) 1.5 %; EOSINOPHILS # (AUTO) 0.1 10^3/uL (0.0-0.7); EOSINOPHILS % (AUTO) 1.9 %; HCT - HEMATOCRIT 38.5 % (37.0-47.0); HGB - HEMOGLOBIN 11.2 g/dL (12.0-16.0); LYMPHOCYTES # (AUTO) 1.5 10^3/uL (1.5-3.5); LYMPHOCYTES % (AUTO) 28.6 %; MEAN CORPUSCULAR HEMOGLOBIN 24.8 pg (27.0-31.0); MEAN CORPUSCULAR HGB CONC 29.1 g/dL (32.0-36.0); MEAN CORPUSCULAR VOLUME 85.2 fL (81.0-99.0); MEAN PLATELET VOLUME 9.8 fL (7.9-10.8); MONOCYTES # (AUTO) 0.4 10^3/uL (0.0-1.0); MONOCYTES % (AUTO) 7.9 %; NEUTROPHILS # (AUTO) 3.2 10^3/uL (1.5-6.6); NEUTROPHILS % (AUTO) 59.9 %; PLT - PLATELET COUNT 396 10^3/uL (130-450); RED BLOOD COUNT 4.52 10^6/uL (4.20-5.40); RED CELL DISTRIBUTION WIDTH 21.2 % (12.0-15.0); WHITE BLOOD COUNT 5.4 x10^3/uL (4.8-10.8)
[2021-04-14 18:41] LABS: SLIDE REVIEW? Indicated
[2021-04-14 19:52] LABS: PLATELET MORPHOLOGY NORMAL APPEARANCE (NORMAL)
[2021-04-14 19:53] LABS: PLATELET ESTIMATE, MANUAL NORMAL (130-450,000) (NORMAL); WBC MORPHOLOGY (MULTIPLE) NORMAL APPEARANCE (NORMAL)
== END 2021-04-14 23:59 | disposition home or self-care (01) ==
LOC: LAB.WCP 12:54
PROVIDERS: ATTEND Family Medicine
DX: K92.2 Gastrointestinal hemorrhage, unspecified (principal)
CPT/HCPCS: 36415; 85025

== ENCOUNTER 2021-06-25 15:59 | Emergency (ER) | payer MEDICAID ==
[2021-06-25 16:45] LABS: BASOPHILS # (AUTO) 0.1 10^3/uL (0.0-0.1); BASOPHILS % (AUTO) 0.7 %; EOSINOPHILS # (AUTO) 0.1 10^3/uL (0.0-0.7); HCT - HEMATOCRIT 38.4 % (37.0-47.0); LYMPHOCYTES # (AUTO) 1.1 10^3/uL (1.5-3.5); LYMPHOCYTES % (AUTO) 15.6 %; MEAN CORPUSCULAR HEMOGLOBIN 29.5 pg (27.0-31.0); MEAN CORPUSCULAR HGB CONC 33.9 g/dL (32.0-36.0); MEAN CORPUSCULAR VOLUME 87.1 fL (81.0-99.0); MEAN PLATELET VOLUME 8.3 fL (7.9-10.8); MONOCYTES # (AUTO) 0.5 10^3/uL (0.0-1.0); MONOCYTES % (AUTO) 6.7 %; NEUTROPHILS # (AUTO) 5.1 10^3/uL (1.5-6.6); NEUTROPHILS % (AUTO) 74.7 %; PLT - PLATELET COUNT 340 10^3/uL (130-450); RED BLOOD COUNT 4.41 10^6/uL (4.20-5.40); RED CELL DISTRIBUTION WIDTH 19.5 % (12.0-15.0); WHITE BLOOD COUNT 6.9 x10^3/uL (4.8-10.8)
[2021-06-25 17:02] LABS: GLUCOSE, URINE (UA) NEGATIVE (NEGATIVE); KETONES,URINE (UA) >=80 mg/dL (NEGATIVE); LEUKOCYTE ESTERASE, URINE NEGATIVE (NEGATIVE); NITRITE,URINE NEGATIVE (NEGATIVE); OCCULT BLOOD,URINE MODERATE (NEGATIVE); PH,URINE 5.5 PH (5.0-7.5); PROTEIN,URINE NEGATIVE (NEGATIVE); UROBILINOGEN,URINE 0.2 (NORMAL) E.U./dL (NORMAL)
[2021-06-25 17:04] LABS: ALBUMIN 4.1 g/dL (3.2-5.5); ALBUMIN/GLOBULIN RATIO 1.2 (1.0-2.2); CALCIUM 9.7 mg/dL (8.5-10.3); CREATININE 0.8 mg/dL (0.4-1.0); POTASSIUM 3.5 mmol/L (3.5-5.0); TOTAL PROTEIN 7.5 g/dL (6.7-8.2)
[2021-06-25 17:07] LABS: BILIRUBIN,URINE NEGATIVE (NEGATIVE); CLARITY,URINE HAZY (CLEAR); ICTOTEST,URINE NEGATIVE
[2021-06-25] MEDS ORDERED: SODIUM CHLORIDE 0.9% 1,000 ML IV STA (17:07)
--- NOTE | 2021-06-25 17:09 | ED Physician Documentation ---
PD HPI ABD PAIN - Stated complaint Stated Complaint: SOA, BLACK STOOLS S/P OP - Chief complaint Chief Complaint: Abd Pain - History obtained from History obtained from: Patient - Additional information Additional information: 60-year-old woman without heart or lung disease is 10 days postop from a paraesophageal hernia repair and fundoplication. Since then she has had shortness of breath that has been much worse over the last 2 days or so and she has pleuritic chest pain worse with deep breathing behind both breasts and in the back. Her appetite has been poor and she has not been eating much but she is not nauseous. Because of that she has not had much bowel movements but what she does note is the bowel movements are dark. That said she is taking an iron supplement. At the time of my evaluation her CBC is already done and her blood counts are the best they have been in quite some time. She denies cough or fevers. Review of Systems Ten Systems: 10 systems reviewed and negative Constitutional: denies: Fever, Chills Nose: reports: Rhinorrhea / runny nose (chronic). denies: Congestion Cardiac: reports: Chest pain / pressure. denies: Palpitations Respiratory: reports: Dyspnea. denies: Cough PD PAST MEDICAL HISTORY - Past Medical History Cardiovascular: None Respiratory: None Endocrine/Autoimmune: HyPOthyroidism GI: GI bleed : None HEENT: Chronic sinusitis Psych: Claustrophobia Musculoskeletal: Osteoarthritis, Chronic back pain Derm: None - Past Surgical History Past Surgical History: Yes Ortho: Knee replacement - Present Medications Home Medications: Ambulatory Orders Medication Instructions Recorded Confirmed Calcium Carbonate/Vitamin D3 1 each PO DAILY 11/23/16 04/05/21 [Calcium 600-Vit D3 400 Tablet] Glucosam/Chondr-Msm6/Manganese 1 each PO DAILY 11/23/16 04/09/21 [Glucosamine-Chondroitin Sftgl] Sennosides/Docusate Sodium [Stool 1 each PO DAILY 11/23/16 04/09/21 Softener-Stim Lax Tablet] Vitamin D3/Folic Acid [Folixapure 5,000 unit PO DAILY 11/23/16 04/09/21 Tablet] Topiramate [Topamax] 100 mg PO BID 12/05/16 04/09/21 oxyCODONE [Roxicodone] 10 mg PO QID PRN 12/05/16 04/09/21 Folic Acid 0.8 mcg PO DAILY 02/18/17 04/09/21 Ascorbic Acid [Vitamin C] 500 mg PO DAILY 05/06/19 04/09/21 Butalb/Acetaminophen/Caffeine 1 each PO Q4HR PRN #10 capsule 05/06/19 04/05/21 [Fioricet 50-300-40 mg Capsule] Ferrous Gluconate [Iron] 240 mg PO DAILY 05/06/19 04/06/21 Loperamide [Imodium] 2 mg PO QID PRN #10 capsule 05/06/19 04/09/21 Pantoprazole Sodium [Protonix] 20 mg PO DAILY #30 tab 04/07/21 04/09/21 oxyCODONE [Roxicodone] 5 mg PO Q4-6H PRN #20 tablet 06/25/21 - Allergies Allergies/Adverse Reactions: Allergies Allergy/AdvReac Type Severity Reaction Status Date / Time No Known Drug Allergies Allergy Verified 06/25/21 16:13 - Social History Does the pt smoke?: No Smoking Status: Former smoker Does the pt drink ETOH?: Yes Does the pt have substance abuse?: No - Immunizations Immunizations are current?: Yes PD ED PE NORMAL - Vitals Vital signs reviewed: Yes - General General: Alert and oriented X 3, No acute distress - HEENT HEENT: PERRL, EOMI - Neck Neck: Supple, no meningeal sign, No bony TTP - Cardiac Cardiac: RRR, No murmur - Respiratory Respiratory: No respiratory distress, Other (Winces with deep breathing but she has clear lungs) - Abdomen Abdomen: Normal bowel sounds, Soft, Non tender, Other (Abdominal laparoscopic incisions are clean dry and intact without signs of infection) - Back Back: No CVA TTP, No spinal TTP - Derm Derm: Normal color, Warm and dry - Extremities Extremities: No edema, No calf tenderness / cord - Neuro Neuro: Alert and oriented X 3, Normal speech Results - Vitals Vitals: Vital Signs - 24 hr 06/25/21 06/25/21 06/25/21 16:06 16:50 18:04 Temperature 37.5 C 37 C Heart Rate 79 70 75 Respiratory 16 18 17 Rate Blood Pressure 132/63 H 125/80 110/63 O2 Saturation 96 100 100 Oxygen O2 Source Room air - Labs Labs: Laboratory Tests 06/25/21 06/25/21 06/25/21 16:40 16:40 16:43 WBC 6.9 RBC 4.41 Hgb 13.0 Hct 38.4 MCV 87.1 MCH 29.5 MCHC 33.9 RDW 19.5 H Plt Count 340 MPV 8.3 Neut # (Auto) 5.1 Lymph # (Auto) 1.1 L [place] # (Auto) 0.5 Eos # (Auto) 0.1 Baso # (Auto) 0.1 Absolute Nucleated RBC 0.00 Nucleated RBC % 0.0 Sodium 136 Potassium 3.5 Chloride 100 L Carbon Dioxide 20 L Anion Gap 16.0 H BUN 7 Creatinine 0.8 Estimated GFR (MDRD) 73 L Glucose 85 Calcium 9.7 Total Bilirubin 1.0 AST 14 ALT 21 Alkaline Phosphatase 63 Total Protein 7.5 Albumin 4.1 Globulin 3.4 Albumin/Globulin Ratio 1.2 Lipase 39 Urine Color YELLOW Urine Clarity HAZY Urine pH 5.5 Ur Specific [place] 1.025 Urine Protein NEGATIVE Urine Glucose (UA) NEGATIVE Urine Ketones >=80 H Urine Occult Blood MODERATE H Urine Nitrite NEGATIVE Urine Bilirubin NEGATIVE Urine Urobilinogen 0.2 (NORMAL) Ur Leukocyte Esterase NEGATIVE Urine RBC 6-10 H Urine WBC 0-3 Ur Squamous Epith Cells MOD Squamous H Urine Bacteria Few Ur Microscopic Review INDICATED Urine Culture Comments NOT INDICATED PD MEDICAL DECISION MAKING - ED course ED course: 60-year-old woman presents with pleuritic chest pain about 10 days out from having a paraesophageal hernia repair and fundoplication. She was feeling better after oral oxycodone. CT of the chest to look for PE was negative for that but the thyroid nodule and need for follow-up was discussed with her and it also showed moderate sized hiatal hernia. I honestly do not know if that is a normal finding after her hernia repair, and she is given a copy of her CT, both the read and the images for when she follows up with her thoracic surgeon next week. Departure - Departure Disposition: 01 Home, Self Care Clinical Impression: Dark stools, Hiatal hernia, Pleuritic chest pain Condition: Good Record reviewed to determine appropriate education?: Yes Instructions: ED Chest Pain Atypical Unkn Cause Prescriptions: oxyCODONE [Roxicodone] 5 mg PO Q4-6H PRN #20 tablet PRN Reason: Pain Comments: Prescription was sent electronically to [facility] in [place]. As discussed, your CAT scan shows no punctured lung or blood clot, you do have a small thyroid nodule and you need to follow-up with your primary care physician to order a ultrasound of this but more concerning is the finding of a moderate sized hiatal hernia, I do not know if that is normal or abnormal after having the procedure. This finding should be discussed with your surgeon at your postoperative visit next week. I am also providing you with a CD copy of the CAT scan so that if they want to see you physically in follow-up you will have the images. Return for new or worsening symptoms. I am prescribing a short course of narcotic pain medication for you. These are potentially dangerous and addictive medications that should be used carefully. These medications may constipate you. Take an cung-cvd-wbngbmk stool softener (docusate) twice daily with plenty of water while taking these medications. If you go 24 hours without a bowel movement, take mqhb-[id number] miralax, per package instructions. Do not drink or drive while taking these medications. If you received narcotic or sedating medications while in the emergency department, do not drive for 24 hours. Store this medication in a safe, secure place and out of reach of children. It is a violation of federal law to give or sell this medication to another person or to use in a manner other than prescribed. The ED will not refill narcotic prescriptions, including prescriptions lost or stolen. To dispose of unwanted medications: 1. [facility] at [address] in [place] has a medication drop box. They accept prescription medications (in pill form) Monday through Monday 9:00 a.m. to 5:00 p.m. 2. The [facility] [employer] accepts prescription medications (in pill form only) for disposal year round. Call for more information. 3. Contact the [facility] for the next [facility] sponsored prescription drug collection event. , [phone], or [phone]; Note that many narcotic pain relievers also contain Tylenol/acetaminophen. Please ensure that your total dose of acetaminophen from all sources does not exceed 3 g (3000 mg) per day.
[2021-06-25] MEDS ORDERED: oxyCODONE 5 MG TABLET PO STA (17:11)
[2021-06-25] MEDS ORDERED: IOPAMIDOL-300 100 ML VIAL ONE (17:23)
[2021-06-25 17:36] LABS: BACTERIA,URINE Few /HPF (None Seen); SQUAMOUS EPITHELIAL CELL,UR MOD Squamous (<= Few); WBC,URINE 0-3 /HPF (0-5)
[2021-06-25] MEDS ORDERED: IOPAMIDOL-300 100 ML VIAL IVP ONE (17:44)
--- NOTE | 2021-06-25 18:13 | CT Report ---
PROCEDURE: ANGIO CHEST W/WO INDICATIONS: chest pain, dyspnea , pe protocol CONTRAST: IV CONTRAST: Isovue 300 ml: 80 PO CONTRAST: *NO PO CONTRAST TECHNIQUE: After the administration of intravenous contrast, 2 mm axial images were acquired from the pulmonary apices to the posterior costophrenic angles during the arterial phase. In addition, 1 mm lung kernel and 5 mm soft tissue kernel reconstructions were performed. 3-dimensional coronal oblique maximum int ensity projection (MIP) reformats, 8 mm axial MIP, and 5 mm coronal and sagittal MPR reformats were t hen performed through the thorax. For radiation dose reduction, the following was used: automated exp osure control, adjustment of mA and/or kV according to patient size. COMPARISON: 04/06/2021 FINDINGS: Image quality: Excellent. Pulmonary arteries: Pulmonary arteries are normal in size, and demonstrate no intraluminal filling d efects to suggest central pulmonary embolism. Lungs and pleura: Lungs are clear. No pleural effusions or pneumothorax. Central and peripheral ai rways are patent. Mediastinum: Heart size is normal, without pericardial effusion. No mediastinal or hilar adenopathy . Thoracic aorta is normal in caliber and enhancement. Esophagus is normal in caliber, without hiat al hernia. There is a moderate-sized hiatal hernia. Bones and chest wall: No suspicious bony lesions. Ribs and thoracic spine appear intact throughout. No axillary or supraclavicular adenopathy. The right thyroid lobe has a 2.9 x 1.8 cm nodule with p eripheral calcifications. Abdomen: Visualized upper abdominal solid organs appear normal in the early arterial phase of enhanc ement. IMPRESSION: 1. No pulmonary embolism. 2. Moderate sized hiatal hernia. 3. No acute abnormality of the chest. 4. Right thyroid nodule measuring 2.9 x 1.8 cm. Recommend outpatient thyroid ultrasound. Reviewed by: Tobin Díaz on 06/25/2021 5:12 PM [facility] Approved by: Tobin Díaz on 06/25/2021 5:12 PM [facility] Station ID: [id number]
[2021-06-25 19:37] VITALS: BP 101/50
== END 2021-06-25 19:32 | disposition home or self-care (01) ==
LOC: ED 15:59 → SUPCPDRO 15:59 → ED 19:32
DX: K44.9 Diaphragmatic hernia without obstruction or gangrene (principal); R07.81 Pleurodynia; R19.5 Other fecal abnormalities; Z87.891 Personal history of nicotine dependence
CPT/HCPCS: 36415; 71275; 80053; 81001; 83690; 85025; 99284; A9270; Q9967; 81003; 87086

== ENCOUNTER 2021-07-13 08:00 | Outpatient (CLI) | payer MEDICAID | END 2021-07-13 23:59 | LOC: LAB.N 08:00 | PROVIDERS: ATTEND Family Medicine | DX: R05.9 Cough, unspecified (principal); Z20.822 Contact with and (suspected) exposure to COVID-19 | CPT/HCPCS: 87275; 87276 ==

== ENCOUNTER 2021-07-26 11:50 | Outpatient (CLI) | payer MEDICAID ==
[2021-07-26 18:37] LABS: ABSOLUTE RETICS # AUTO 0.032 10^6/uL (0.020-0.110); BASOPHILS # (AUTO) 0.1 10^3/uL (0.0-0.1); BASOPHILS % (AUTO) 1.5 %; EOSINOPHILS # (AUTO) 0.2 10^3/uL (0.0-0.7); EOSINOPHILS % (AUTO) 4.9 %; HCT - HEMATOCRIT 45.7 % (37.0-47.0); HGB - HEMOGLOBIN 14.5 g/dL (12.0-16.0); LYMPHOCYTES # (AUTO) 1.7 10^3/uL (1.5-3.5); LYMPHOCYTES % (AUTO) 36.7 %; MEAN CORPUSCULAR HEMOGLOBIN 29.7 pg (27.0-31.0); MEAN CORPUSCULAR HGB CONC 31.7 g/dL (32.0-36.0); MEAN CORPUSCULAR VOLUME 93.6 fL (81.0-99.0); MEAN PLATELET VOLUME 9.9 fL (7.9-10.8); MONOCYTES # (AUTO) 0.3 10^3/uL (0.0-1.0); MONOCYTES % (AUTO) 6.8 %; NEUTROPHILS # (AUTO) 2.4 10^3/uL (1.5-6.6); NEUTROPHILS % (AUTO) 49.9 %; PLT - PLATELET COUNT 286 10^3/uL (130-450); RED BLOOD COUNT 4.88 10^6/uL (4.20-5.40); RED CELL DISTRIBUTION WIDTH 15.3 % (12.0-15.0); RETICULOCYTE COUNT % (AUTO) 0.65 % (0.5-2.3); WHITE BLOOD COUNT 4.7 x10^3/uL (4.8-10.8)
[2021-07-26 19:24] LABS: % IRON SATURATION 38 % (20-50); ALBUMIN 4.2 g/dL (3.2-5.5); ALBUMIN/GLOBULIN RATIO 1.5 (1.0-2.2); ALKALINE PHOSPHATASE 74 IU/L (42-121); ALT ALANINE AMINOTRANSFERASE 13 IU/L (10-60); AST ASPARTATE AMINOTRANSFERASE 16 IU/L (10-42); BILIRUBIN,TOTAL 0.7 mg/dL (0.2-1.0); BUN - BLOOD UREA NITROGEN 12 mg/dL (6-20); CALCIUM 10.3 mg/dL (8.5-10.3); CARBON DIOXIDE - CO2 26 mmol/L (21-32); CHLORIDE 106 mmol/L (101-111); CHOL/HDL RATIO 5.5 (<4.4); CHOLESTEROL 255 mg/dL; CREATININE 0.9 mg/dL (0.4-1.0); GFR - MDRD 64 (>89); GLUCOSE 100 mg/dL (70-100); HDL CHOLESTEROL 46 mg/dL; IRON 121 ug/dL (28-170); LDL CHOLESTEROL,CALCULATED 178 mg/dL; LDL/HDL RATIO 3.9 (<4.4); POTASSIUM 4.1 mmol/L (3.5-5.0); SODIUM 140 mmol/L (135-145); TOTAL IRON BINDING CAPACITY 319 ug/dL (250-450); TRANSFERRIN 228 mg/dL (192-382); TRIGLYCERIDES 155 mg/dL; VLDL CHOLESTEROL 31 mg/dL
[2021-07-26 19:59] LABS: THYROID STIMULATING HORMONE 1.96 uIU/mL (0.34-5.60)
[2021-07-26 20:01] LABS: FREE T3 5.85 pg/mL (2.5-3.9); FREE T4 (FREE THYROXINE) 0.78 ng/dL (0.58-1.64)
[2021-07-26 20:06] LABS: FERRITIN 42.9 ng/mL (11.0-306.8)
== END 2021-07-26 11:51 | disposition home or self-care (01) ==
LOC: LAB.N 11:50
PROVIDERS: ATTEND Internal Medicine
DX: E04.2 Nontoxic multinodular goiter (principal); Z13.1 Encounter for screening for diabetes mellitus; Z13.220 Encounter for screening for lipoid disorders; K92.2 Gastrointestinal hemorrhage, unspecified
CPT/HCPCS: 36415; 80053; 80061; 82728; 83540; 83721; 84439; 84443; 84466; 84481; 85025; 85045

== ENCOUNTER 2021-08-04 11:24 | Outpatient (CLI) | payer MEDICAID ==
--- NOTE | 2021-08-04 16:03 | Ultrasound Report ---
PROCEDURE: Head or Neck Soft Tissue INDICATIONS: GOITER, MULTINODULAR TECHNIQUE: Real-time scanning was performed of the thyroid gland, with image documentation. COMPARISON: Thyroid ultrasound 08/22/2012 FINDINGS: Right: Thyroid lobe measures 6.1 x 1.7 x 1.9 cm, and is homogeneous in echotexture. Left: Thyroid lobe measures 4.1 x 0.8 x 1.6 cm, and is homogenous in echotexture. Isthmus: 0.4 cm thick. Nodule number: One (fine-needle aspiration performed on 01/11/2013) Location: Right mid to inferior Size: 3.4 x 2.1 x 2.8 cm (previously 2.1 x 1.9 x 2.7 cm) Composition: Mixed cystic and solid Echogenicity: Isoechoic Shape: wider than tall. Margins: Smooth Echogenic foci: Peripheral calcifications and microcalcifications are present. Total points: 4 ACR TI-RADS category: 4 Moderately suspicious Nodule number: Two Location: Lateral right mid Size: 1.1 x 0.7 x 0.7 cm (not previously seen) Composition: Solid Echogenicity: Hyperechoic Shape: wider than tall. Margins: Smooth Echogenic foci: None Total points: 3 ACR TI-RADS category: 3 Mildly suspicious Nodule number: Three Location: Left superior to mid Size: 0.7 x 0.5 x 0.6 mm (unchanged from prior) Composition: Solid Echogenicity: Hyperechoic Shape: wider than tall. Margins: Smooth Echogenic foci: Macrocalcifications Total points: 4 ACR TI-RADS category: 4 Moderately suspicious Nodule number: Four (fine-needle aspiration performed on 01/11/2013) Location: Left mid to inferior Size: 1.7 x 1.0 x 1.5 cm (previously 2.1 x 1.4 x 1.6 cm) Composition: Solid Echogenicity: Hyperechoic Shape: wider than tall. Margins: Smooth Echogenic foci: None Total points: 3 ACR TI-RADS category: 3 Mildly suspicious IMPRESSION: 1.Numerous bilateral thyroid nodules, the most suspicious of which are described above. 2.Recommend correlation with pathologic results from the prior thyroid fine-needle aspirations perfor [facility] in 2013. 3.TI-RADS guidelines provided below for reference. ACR TI-RADS definitions and recommendations: TI-RADS 1 (benign): 0 points. FNA not needed. TI-RADS 2 (not suspicious): 2 points. FNA not needed. TI-RADS 3 (mildly suspicious): 3 points. "FNA if 2.5 cm or larger, follow up if 1.5 cm or larger (at 1, 3, and 5 years). TI-RADS 4 (moderately suspicious): 4-6 points. "FNA if 1.5 cm or larger, follow up if 1 cm or larger (at 1, 2, 3, and 5 years). TI-RADS 5 (highly suspicious): 7 points or more. "FNA if 1 cm or larger, follow up if 0.5 cm or larger (every year for 5 years). Reviewed by: Dexter Knowles MD on 08/04/2021 4:01 PM PST Approved by: Dexter Knowles MD on 08/04/2021 4:01 PM PST Station ID: [id number]
== END 2021-08-04 11:25 | disposition home or self-care (01) ==
LOC: DI 11:24
PROVIDERS: ATTEND Internal Medicine
DX: E04.2 Nontoxic multinodular goiter (principal)

== ENCOUNTER 2021-09-08 12:44 | Outpatient (CLI) | payer MEDICAID ==
--- NOTE | 2021-09-10 06:42 | Mammography Report ---
BILATERAL DIGITAL SCREENING MAMMOGRAM 3D/2D: 09/08/2021 CLINICAL: Routine screening. Comparison is made to exams dated: 11/06/2017 mammogram and 10/03/2017 mammogram - [facility]. The tissue of both breasts is predominantly fatty. No significant masses, calcifications, or other findings are seen in either breast. There has been no significant interval change. IMPRESSION: NEGATIVE There is no mammographic evidence of malignancy. A 1 year screening mammogram is recommended. This exam was interpreted at Station ID: [id number]. NOTE: For mammograms, a report in lay terms will be sent to the patient. Approximately 15% of breast malignancies will not be visualized mammographically. In the management of a palpable breast mass, a negative mammogram must not discourage biopsy of a clinically suspicious lesion. Electronically Signed By: Brenda monteiro/gregory:09/08/2021 14:52:12 ACR BI-RADS Category 1: Negative 3341F PARENCHYMAL PATTERN: (F) - The breast(s) demonstrate(s) diffuse fatty replacement. BI-RADS CATEGORY: (1) - 1 RECOMMENDATION: (ANNUAL) - Recommend routine annual screening mammography. [id number] 1 year screening LATERALITY: (B)
== END 2021-09-08 12:45 | disposition home or self-care (01) ==
LOC: DI.N 12:44
PROVIDERS: ATTEND Internal Medicine
DX: Z12.31 Encounter for screening mammogram for malignant neoplasm of breast (principal)

== ENCOUNTER 2021-12-28 08:00 | Outpatient (CLI) | payer MEDICAID ==
[2021-12-28 21:07] LABS: BASOPHILS % (AUTO) 0.7 %; EOSINOPHILS # (AUTO) 0.1 10^3/uL (0.0-0.7); HCT - HEMATOCRIT 44.3 % (37.0-47.0); HGB - HEMOGLOBIN 14.5 g/dL (12.0-16.0); LYMPHOCYTES # (AUTO) 1.9 10^3/uL (1.5-3.5); LYMPHOCYTES % (AUTO) 31.3 %; MEAN CORPUSCULAR HEMOGLOBIN 30.9 pg (27.0-31.0); MEAN CORPUSCULAR HGB CONC 32.7 g/dL (32.0-36.0); MEAN CORPUSCULAR VOLUME 94.5 fL (81.0-99.0); MEAN PLATELET VOLUME 10.1 fL (7.9-10.8); MONOCYTES # (AUTO) 0.4 10^3/uL (0.0-1.0); MONOCYTES % (AUTO) 7.2 %; NEUTROPHILS # (AUTO) 3.6 10^3/uL (1.5-6.6); NEUTROPHILS % (AUTO) 59.6 %; PLT - PLATELET COUNT 258 10^3/uL (130-450); RED BLOOD COUNT 4.69 10^6/uL (4.20-5.40); RED CELL DISTRIBUTION WIDTH 12.8 % (12.0-15.0); WHITE BLOOD COUNT 6.1 x10^3/uL (4.8-10.8)
[2021-12-28 21:39] LABS: ALBUMIN 4.4 g/dL (3.2-5.5); ALBUMIN/GLOBULIN RATIO 1.8 (1.0-2.2); BILIRUBIN,TOTAL 0.4 mg/dL (0.2-1.0); CALCIUM 10.1 mg/dL (8.5-10.3); CREATININE 0.7 mg/dL (0.4-1.0); POTASSIUM 3.9 mmol/L (3.5-5.0); TOTAL PROTEIN 6.9 g/dL (6.7-8.2)
[2021-12-28 21:55] LABS: THYROID STIMULATING HORMONE 1.8 uIU/mL (0.34-5.60)
== END 2021-12-28 23:59 | disposition home or self-care (01) ==
LOC: LAB.N 08:00
PROVIDERS: ATTEND Nurse Practitioner
DX: R30.0 Dysuria (principal)
CPT/HCPCS: 36415; 80053; 83880; 84443; 85025; 87086

== ENCOUNTER 2021-12-31 08:00 | Outpatient (CLI) | payer MEDICAID | END 2021-12-31 23:59 | disposition home or self-care (01) | LOC: LAB.N 08:00 | PROVIDERS: ATTEND Internal Medicine | DX: R19.7 Diarrhea, unspecified (principal) | CPT/HCPCS: 83993; 87045; 87046; 87329; 87427; 87493 ==

== ENCOUNTER 2022-03-25 16:52 | Outpatient (CLI) | payer MEDICAID | END 2022-03-25 16:53 | disposition home or self-care (01) | LOC: LAB.N 16:52 | PROVIDERS: ATTEND Otolaryngology | DX: E05.20 Thyrotoxicosis with toxic multinodular goiter without thyrotoxic crisis or storm (principal) | CPT/HCPCS: 36415; 84443 ==

== ENCOUNTER 2022-07-02 23:27 | Outpatient (CLI) | payer MEDICAID | END 2022-07-02 23:28 | disposition EMS.NT | LOC: EMS 23:27 | DX: Z76.89 Persons encountering health services in other specified circumstances (principal) ==

== ENCOUNTER 2022-10-25 10:22 | Outpatient (CLI) | payer MEDICAID ==
[2022-10-25 10:51] LABS: BASOPHILS # (AUTO) 0.1 10^3/uL (0.0-0.1); BASOPHILS % (AUTO) 1.7 %; EOSINOPHILS # (AUTO) 0.1 10^3/uL (0.0-0.7); EOSINOPHILS % (AUTO) 2.5 %; HGB - HEMOGLOBIN 13.6 g/dL (12.0-16.0); LYMPHOCYTES # (AUTO) 1.5 10^3/uL (1.5-3.5); LYMPHOCYTES % (AUTO) 40.8 %; MEAN CORPUSCULAR HEMOGLOBIN 31.4 pg (27.0-31.0); MEAN CORPUSCULAR HGB CONC 32.4 g/dL (32.0-36.0); MEAN PLATELET VOLUME 9.1 fL (7.9-10.8); MONOCYTES # (AUTO) 0.3 10^3/uL (0.0-1.0); MONOCYTES % (AUTO) 8.1 %; NEUTROPHILS # (AUTO) 1.7 10^3/uL (1.5-6.6); NEUTROPHILS % (AUTO) 46.6 %; PLT - PLATELET COUNT 218 10^3/uL (130-450); RED BLOOD COUNT 4.33 10^6/uL (4.20-5.40); RED CELL DISTRIBUTION WIDTH 12.5 % (12.0-15.0); WHITE BLOOD COUNT 3.6 x10^3/uL (4.8-10.8)
[2022-10-25 11:09] LABS: ALBUMIN 4.3 g/dL (3.2-5.5); ALBUMIN/GLOBULIN RATIO 1.7 (1.0-2.2); ALKALINE PHOSPHATASE 80 IU/L (42-121); ALT ALANINE AMINOTRANSFERASE 22 IU/L (10-60); AST ASPARTATE AMINOTRANSFERASE 25 IU/L (10-42); BILIRUBIN,TOTAL 0.5 mg/dL (0.2-1.0); BUN - BLOOD UREA NITROGEN 12 mg/dL (6-20); CALCIUM 9.5 mg/dL (8.5-10.3); CARBON DIOXIDE - CO2 30 mmol/L (21-32); CHLORIDE 105 mmol/L (101-111); CHOL/HDL RATIO 2.9 (<4.4); CHOLESTEROL 226 mg/dL; CREATININE 0.6 mg/dL (0.4-1.0); GFR - MDRD 102 (>89); GLUCOSE 94 mg/dL (70-100); HDL CHOLESTEROL 78 mg/dL; LDL CHOLESTEROL,CALCULATED 138 mg/dL; LDL/HDL RATIO 1.8 (<4.4); POTASSIUM 4.2 mmol/L (3.5-5.0); SODIUM 142 mmol/L (135-145); TOTAL PROTEIN 6.9 g/dL (6.7-8.2); TRIGLYCERIDES 51 mg/dL; VLDL CHOLESTEROL 10 mg/dL
[2022-10-25 11:18] LABS: BILIRUBIN,URINE NEGATIVE (NEGATIVE); GLUCOSE, URINE (UA) NEGATIVE (NEGATIVE); KETONES,URINE (UA) TRACE mg/dL (NEGATIVE); LEUKOCYTE ESTERASE, URINE TRACE (NEGATIVE); NITRITE,URINE NEGATIVE (NEGATIVE); OCCULT BLOOD,URINE SMALL (NEGATIVE); PH,URINE 7.5 PH (5.0-7.5); PROTEIN,URINE NEGATIVE (NEGATIVE); UROBILINOGEN,URINE 0.2 (NORMAL) E.U./dL (NORMAL)
[2022-10-25 11:19] LABS: CLARITY,URINE CLEAR (CLEAR); THYROID STIMULATING HORMONE 0.98 uIU/mL (0.34-5.60)
[2022-10-25 11:29] LABS: BACTERIA,URINE Few /HPF (None Seen); RBC,URINE 0-5 /HPF (0-5); SQUAMOUS EPITHELIAL CELL,UR MOD Squamous (<= Few); WBC,URINE 0-3 /HPF (0-5)
== END 2022-10-25 10:23 | disposition home or self-care (01) ==
LOC: LAB 10:22
PROVIDERS: ATTEND Internal Medicine
DX: K50.10 Crohn's disease of large intestine without complications (principal); Z13.220 Encounter for screening for lipoid disorders; E04.1 Nontoxic single thyroid nodule; N39.41 Urge incontinence
CPT/HCPCS: 36415; 80053; 80061; 81001; 83721; 84443; 85025; 87086

== ENCOUNTER 2023-03-13 10:41 | Outpatient (CLI) | payer MEDICAID ==
[2023-03-13 18:14] LABS: CALCIUM 9.9 mg/dL (8.5-10.3); CREATININE 0.7 mg/dL (0.6-1.3); POTASSIUM 4.2 mmol/L (3.5-4.5)
[2023-03-13 18:35] LABS: THYROID STIMULATING HORMONE 0.72 uIU/mL (0.34-5.60)
[2023-03-13 21:45] LABS: ESTIMATED AVERAGE GLUCOSE 97 mg/dL (70-100)
[2023-03-15 16:08] LABS: A/G RATIO 1.5 (0.7-1.7); ALBUMIN 3.7 g/dL (2.9-4.4); ALPHA-1-GLOBULIN 0.2 g/dL (0.0-0.4); ALPHA-2-GLOBULIN 0.7 g/dL (0.4-1.0); BETA GLOBULIN 0.9 g/dL (0.7-1.3); GAMMA GLOBULIN 0.7 g/dL (0.4-1.8); GLOBULIN TOTAL 2.5 g/dL (2.2-3.9); IMMUNOGLOBULIN A (IGA) 147 mg/dL (87-352); IMMUNOGLOBULIN G (IGG) 656 mg/dL (586-1602); IMMUNOGLOBULIN M (IGM) 134 mg/dL (26-217); M-SPIKE 0.1 g/dL (Not Observed); PROTEIN TOTAL 6.2 g/dL (6.0-8.5)
== END 2023-03-13 10:42 | disposition home or self-care (01) ==
LOC: LAB.N 10:41
PROVIDERS: ATTEND Internal Medicine
DX: E04.1 Nontoxic single thyroid nodule (principal); G60.9 Hereditary and idiopathic neuropathy, unspecified
CPT/HCPCS: 36415; 80048; 82607; 82784; 83036; 84155; 84165; 84439; 84443; 86334

== ENCOUNTER 2023-03-21 13:25 | Outpatient (CLI) | payer MEDICAID ==
--- NOTE | 2023-03-22 10:23 | Mammography Report ---
BILATERAL DIGITAL SCREENING MAMMOGRAM 3D/2D: 03/21/2023 CLINICAL: Routine screening. Comparison is made to exams dated: 09/08/2021 mammogram, 11/06/2017 mammogram, and 10/03/2017 mammogram - [facility]. Both breasts are almost entirely fatty (category a/<25% glandular tissue). No significant masses, calcifications, or other findings are seen in either breast. There has been no significant interval change. IMPRESSION: NEGATIVE There is no mammographic evidence of malignancy. A 1 year screening mammogram is recommended. Based on the Tyrer Cuzick model (a risk assessment model) the patients lifetime risk is 4.6% and her 10 year risk is 1.9%. According to the ACR, ACS, and NCCN guidelines, an annual breast MRI exam mejia g with mammogram is recommended if the patients lifetime risk is 20% or greater. This exam was interpreted at Station ID: [id number]. NOTE: For mammograms, a report in lay terms will be sent to the patient. Approximately 15% of breast malignancies will not be visualized mammographically. In the management of a palpable breast mass, a negative mammogram must not discourage biopsy of a clinically suspicious lesion. Electronically Signed By: Meghna bateman/gregory:03/21/2023 14:06:32 letter sent: No_Letter ACR BI-RADS Category 1: Negative 3341F PARENCHYMAL PATTERN: (F) - The breast(s) demonstrate(s) diffuse fatty replacement. BI-RADS CATEGORY: (1) - 1 Mammogram [id number] 1 year screening LATERALITY: (B)
== END 2023-03-21 13:26 | disposition home or self-care (01) ==
LOC: DI.N 13:25
PROVIDERS: ATTEND Internal Medicine
DX: Z12.31 Encounter for screening mammogram for malignant neoplasm of breast (principal)

== ENCOUNTER 2023-07-16 14:56 | Outpatient (CLI) | payer MEDICAID ==
--- NOTE | 2023-07-16 19:44 | Ultrasound Report ---
PROCEDURE: Soft Tissue Head or Neck INDICATIONS: THYROID NODULE TECHNIQUE: Real-time scanning was performed of the thyroid gland, with image documentation. COMPARISON: Thyroid ultrasound dated 08/04/2021 FINDINGS: Right: The right thyroid lobe is surgically absent. Left: Thyroid lobe measures 2.9 x 0.8 x 1.3 cm, and is homogenous in echotexture. Isthmus: 0.3 cm thick. Nodule number: One Location: Left superior thyroid Size: 1.1 x 1.2 x 0.6 cm. Composition: Solid (2 points). Echogenicity: Hypoechoic (2 points). Shape: wider than tall (0 points). Margins: Smooth (0 points). Echogenic foci: None (0 points). Total points: 4 ACR TI-RADS category: 4 Nodule number: Two Location: Inferior left thyroid Size: 1.0 x 1.0 x 0.8 cm. Composition: Solid (2 points). Echogenicity: Isoechoic (1 point). Shape: wider than tall (0 points). Margins: Smooth (0 points). Echogenic foci: None (0 points). Total points: 3 ACR TI-RADS category: TI-RADS 3: Mildly suspicious. IMPRESSION: 1. 1.2 cm T4 lesion. Continued follow-up recommended. Please see follow-up guidelines below. 2. 1.0 cm T3 lesion. No further follow-up recommended. ACR TI-RADS definitions and recommendations: TI-RADS 1 (benign): 0 points. FNA not needed. TI-RADS 2 (not suspicious): 2 points. FNA not needed. TI-RADS 3 (mildly suspicious): 3 points. "FNA if 2.5 cm or larger, follow up if 1.5 cm or larger (at 1, 3, and 5 years). TI-RADS 4 (moderately suspicious): 4-6 points. "FNA if 1.5 cm or larger, follow up if 1 cm or larger (at 1, 2, 3, and 5 years). TI-RADS 5 (highly suspicious): 7 points or more. "FNA if 1 cm or larger, follow up if 0.5 cm or larger (every year for 5 years). Reviewed by: Jessi Serrano MD on 07/16/2023 7:43 PM PST Approved by: Jessi Serrano MD on 07/16/2023 7:43 PM [facility] Station ID: [id number]
== END 2023-07-16 14:57 | disposition home or self-care (01) ==
LOC: DI 14:56
PROVIDERS: ATTEND Internal Medicine
DX: E04.2 Nontoxic multinodular goiter (principal)

== ENCOUNTER 2024-01-09 08:00 | Outpatient (CLI) | payer MEDICAID ==
[2024-01-09 17:52] LABS: BASOPHILS # (AUTO) 0.1 10^3/uL (0.0-0.1); BASOPHILS % (AUTO) 1.3 %; HCT - HEMATOCRIT 41.9 % (37.0-47.0); HGB - HEMOGLOBIN 13.4 g/dL (12.0-16.0); LYMPHOCYTES # (AUTO) 1.5 10^3/uL (1.5-3.5); LYMPHOCYTES % (AUTO) 38.3 %; MEAN CORPUSCULAR HEMOGLOBIN 32.1 pg (27.0-31.0); MEAN CORPUSCULAR VOLUME 100.2 fL (81.0-99.0); MEAN PLATELET VOLUME 10.5 fL (7.9-10.8); MONOCYTES # (AUTO) 0.3 10^3/uL (0.0-1.0); MONOCYTES % (AUTO) 7.4 %; NEUTROPHILS % (AUTO) 51.7 %; PLT - PLATELET COUNT 235 10^3/uL (130-450); RED BLOOD COUNT 4.18 10^6/uL (4.20-5.40); RED CELL DISTRIBUTION WIDTH 14.3 % (12.0-15.0); WHITE BLOOD COUNT 3.9 x10^3/uL (4.8-10.8)
[2024-01-09 17:53] LABS: BILIRUBIN,URINE NEGATIVE (NEGATIVE); GLUCOSE, URINE (UA) NEGATIVE (NEGATIVE); KETONES,URINE (UA) NEGATIVE (NEGATIVE); LEUKOCYTE ESTERASE, URINE TRACE (NEGATIVE); NITRITE,URINE NEGATIVE (NEGATIVE); OCCULT BLOOD,URINE TRACE-INTA (NEGATIVE); PROTEIN,URINE NEGATIVE (NEGATIVE); UROBILINOGEN,URINE 0.2 (NORMAL) E.U./dL (NORMAL)
[2024-01-09 17:55] LABS: CLARITY,URINE HAZY (CLEAR)
[2024-01-09 18:08] LABS: CHOL/HDL RATIO 2.8 (<4.4); CHOLESTEROL 194 mg/dL; HDL CHOLESTEROL 70 mg/dL; LDL CHOLESTEROL,CALCULATED 97 mg/dL; LDL/HDL RATIO 1.4 (<4.4); TRIGLYCERIDES 137 mg/dL; VLDL CHOLESTEROL 27 mg/dL
[2024-01-09 18:09] LABS: ALBUMIN 4.5 g/dL (3.2-5.5); ALBUMIN/GLOBULIN RATIO 1.8 (1.0-2.2); ALKALINE PHOSPHATASE 67 IU/L (42-121); ALT ALANINE AMINOTRANSFERASE 15 IU/L (10-60); AST ASPARTATE AMINOTRANSFERASE 15 IU/L (10-42); BILIRUBIN,TOTAL 0.5 mg/dL (0.2-1.0); BUN - BLOOD UREA NITROGEN 9 mg/dL (6-20); CALCIUM 9.5 mg/dL (8.5-10.3); CARBON DIOXIDE - CO2 29 mmol/L (21-32); CHLORIDE 108 mmol/L (101-111); CREATININE 0.6 mg/dL (0.6-1.3); CRP - C-REACTIVE PROTEIN < 0.5 mg/dL (<0.5); GFR - MDRD 101 (>89); GLUCOSE 88 mg/dL (74-104); SODIUM 141 mmol/L (135-145)
[2024-01-09 18:22] LABS: THYROID STIMULATING HORMONE 0.63 uIU/mL (0.34-5.60)
[2024-01-09 18:27] LABS: BACTERIA,URINE Few /HPF (None Seen); RBC,URINE 0-5 /HPF (0-5); SQUAMOUS EPITHELIAL CELL,UR MANY Squamous (<= Few)
[2024-01-09 20:00] LABS: ESTIMATED AVERAGE GLUCOSE 94 mg/dL (70-100); HEMOGLOBIN A1c% 4.9 % (4.27-6.07)
[2024-01-11 15:09] LABS: IMMUNOGLOBULIN A (IGA) 163 mg/dL (87-352); IMMUNOGLOBULIN G (IGG) 632 mg/dL (586-1602); IMMUNOGLOBULIN M (IGM) 121 mg/dL (26-217)
== END 2024-01-09 23:59 | disposition home or self-care (01) ==
LOC: LAB.N 08:00
PROVIDERS: ATTEND Specialist/Technologist Athletic Trainer
DX: M47.819 Spondylosis without myelopathy or radiculopathy, site unspecified (principal); M06.9 Rheumatoid arthritis, unspecified; R76.0 Raised antibody titer; Z13.220 Encounter for screening for lipoid disorders; R73.01 Impaired fasting glucose; E04.1 Nontoxic single thyroid nodule; D47.2 Monoclonal gammopathy; R35.0 Frequency of micturition
CPT/HCPCS: 36415; 80053; 80061; 81001; 81003; 82784; 83036; 83721; 84443; 85025; 85027; 85651; 86140; 86334; 87086